=== PATIENT | female | born 1960 | race Caucasian/White ===

== ENCOUNTER 2019-07-04 14:05 | Outpatient (CLI) | payer OTHER, SELFPAY ==
--- NOTE | ~2019-07-04 | XR_ITS ---
EXAMINATION: XR chest 2V EXAM DATE: 07/04/2019 15:25 INDICATION: Cough for one month. Shortness of breath. TECHNIQUE: Frontal and lateral projections of the chest obtained and reviewed. Comparison is made to prior examination from 05/23/2018. FINDINGS: The lungs are clear. There are no pleural effusions. The cardiomediastinal silhouette is within normal limits. There is no pneumothorax suspected. The bones and soft tissues are unremarkab le. IMPRESSION: Unremarkable chest x-ray exam. Reviewed, dictated and finalized at location A. ICULUM DEVELOPMENT COORDINATOR
== END 2019-07-04 14:06 | disposition home or self-care (01) ==
PROVIDERS: PCP Internal Medicine; Visit Provider Internal Medicine
DX: R05 Cough (principal)
CPT/HCPCS: 71046

== ENCOUNTER 2019-07-14 09:51 | Outpatient (CLI) | payer OTHER, SELFPAY ==
--- NOTE | ~2019-07-14 | CT_ITS ---
EXAMINATION: CT lung screening DATE: 07/14/2019 10:45 INDICATION: Personal history of tobacco dependence TECHNIQUE: Computed tomography (CT) of the chest was performed without intravenous contrast. The dose -length product was 288.31 mGy-cm. Automated exposure control and iterative reconstruction technique were employed. COMPARISON: Chest x-ray dated 07/04/2019 FINDINGS: There is lingular and left lower lobe atelectasis. No endobronchial lesions. There are grou ndglass opacities in the right upper lobe, likely secondary to small airway disease. There is a 5 mm right upper lobe nodule, image 35. There are calcified granulomas in the left lung. There is atherosc lerosis of the aorta and coronary arteries. Heart size is normal. No significant pleural or pericardi al effusion. The upper abdomen is unremarkable. There is patchy sclerosis of T3-T7 as well as T10 and T11. There is complete loss of disc space at T4-5, T5-6 and to a lesser degree T6-7. There is loss o f vertebral body height at T3, T4, T5, T6 and T7 with anterior wedge appearance. No acute osseous abn ormality. IMPRESSION: 1. Lung-RADS category 2: Benign appearance or behavior. Continue annual screening with noncontrast lo w-dose chest CT in 12 months. 2: Patchy multilevel sclerosis of the thoracic spine with multiple wedge compression deformities of t he mid thoracic spine. Cannot exclude metastatic disease. Correlate for history of malignancy. Differ ential diagnosis includes sequela of trauma and infection. Consider correlation with bone scan or MRI . Reviewed, dictated and finalized at location A. LANCE WEB DESIGNER IMPRESSION: 1. Lung-RADS category 2: Benign appearance or behavior. Continue annual screeni ng with noncontrast low-dose chest CT in 12 months. 2: Patchy multilevel sclerosis of the thoracic spine with multiple wedge compre ssion deformities of the mid thoracic spine. Cannot exclude metastatic disease. Correlate for history of malignancy. Differential diagnosis includes sequela o f trauma and infection. Consider correlation with bone scan or MRI.
== END 2019-07-14 09:52 | disposition home or self-care (01) ==
LOC: CHSIMG 09:52
PROVIDERS: PCP Internal Medicine; Visit Provider Internal Medicine
DX: Z12.2 Encounter for screening for malignant neoplasm of respiratory organs (principal); Z87.891 Personal history of nicotine dependence
CPT/HCPCS: G0297

== ENCOUNTER 2019-07-30 15:29 | Outpatient (CLI) | payer OTHER, SELFPAY ==
--- NOTE | ~2019-07-30 | MR_ITS ---
EXAMINATION: MR thoracic spine wo/w con DATE: 07/30/2019 17:21 INDICATION: Malignant neoplasm of vertebral column. TECHNIQUE: Magnetic resonance imaging (MRI) of the thoracic spine was performed without and with 20 m L MultiHance intravenous contrast. Sequences included sagittal and axial T2-weighted FSE, sagittal T2 -weighted FS FSE, and sagittal and axial T1-weighted FSE. Postcontrast sequences included sagittal an d axial T1-weighted FS FSE. COMPARISON: Thoracic spine MRI 05/17/2016, 12/14/2012, chest CT 07/14/2019 FINDINGS: There is 13 degrees dextroscoliosis of thoracic spine. There is chronic anterior wedging of T4-T7 and T9 vertebral bodies. There is chronic patchy increased T2-weighted signal intensity and m any of the vertebral bodies, likely degenerative. There are Schmorl's nodes from T2-T3 through T10-T1 1. There is moderately decreased disc height at T3-T4, severely decreased disc height from T4-T5 thro ugh T6-T7, and mildly decreased disc height from T7-T8 through T10-T11. There is interbody fusion fro m T4 to T6. The discs do not extend beyond the endplate margins. There is multilevel mild facet joint osteoarthritis. There is mild neural foraminal stenosis on the right at T1-T2, T2-T3, T5-T6, T6-T7, T7-T8, and T8-T9. There is mild neural foraminal stenosis on the left at T1-T2, T2-T3, and T5-T6. The re is epidural lipomatosis in mid thoracic spine with mild central canal stenosis from T4 to T8. The spinal cord signal intensity is normal. IMPRESSION: 1. Severe thoracic spondylosis, stable from 12/14/2012. Reviewed, dictated and finalized at location A. OR ENGINEERING TECHNICIAN
[2019-07-30 15:52] LABS: Estimated Glomerular Filt Rate > 60
== END 2019-07-30 15:30 | disposition home or self-care (01) ==
LOC: CHSIMG 15:30
PROVIDERS: PCP Internal Medicine; Visit Provider Internal Medicine
DX: C41.2 Malignant neoplasm of vertebral column (principal)
CPT/HCPCS: 72157; A9577

== ENCOUNTER 2019-08-08 08:12 | Outpatient (CLI) | payer OTHER, SELFPAY ==
[2019-08-08 08:21] LABS: Basophils Absolute Auto 0.08 K/mm3 (0.00-0.10); Basophils Percent Auto 0.8 % (0.0-1.0); Eosinophils Absolute Auto 0.31 K/mm3 (0.02-0.50); Eosinophils Percent Auto 3.1 % (1.0-6.0); Hematocrit 41.7 % (35.0-49.0); Hemoglobin 14.6 g/dL (12.0-15.0); Immature Granulocyte Absolute 0.04 K/mm3 (0.00-0.00); Immature Granulocyte Percent A 0.4 % (0.0-0.0); Lymphocytes Absolute Auto 2.71 K/mm3 (1.10-4.50); Lymphocytes Percent Auto 27.3 % (18.0-42.0); Mean Corpuscular Hemoglobin 31.5 pg (27.0-31.0); Mean Corpuscular Volume 90.1 fL (78.0-102.0); Mean Platelet Volume 9.2 fl (9.2-11.8); Monocytes Absolute Auto 0.68 K/mm3 (0.10-0.90); Monocytes Percent Auto 6.9 % (2.0-11.0); Neutrophils Absolute Auto 6.1 K/mm3 (1.7-7.2); Neutrophils Percent Auto 61.5 % (50.0-70.0); Platelet Count Result 327 K/mm3 (150-420); Red Blood Count 4.63 M/mm3 (4.20-5.40); Red Cell Distribution Width 14.6 % (11.6-14.4); White Blood Count 9.9 K/mm3 (4.8-10.8)
[2019-08-08 08:30] LABS: Add Urine Microscopic? NO; Appearance Urine Clear (Clear); Bilirubin Urine Negative (Negative); Blood Urine Negative (Negative); Color Urine Yellow (Yellow); Glucose Urine UA Negative (Negative); Ketones Urine Negative (Negative); Leukocyte Esterase Ur Negative LEU/UL (Negative); Nitrate Urine Negative (Negative); Protein Urine Negative (Negative); Specific Grav Ur 1.015 (1.010-1.020); Urobilinogen Urine 0.2 mg/dL (0.2-1.0); pH Urine 6.5 (5.0-8.0)
[2019-08-08 08:37] LABS: Creatinine Urine 106.19 mg/dL (40-278)
[2019-08-08 08:38] LABS: MALB Creatinine Ratio 10.6 mg/g (0-30); Microalbumin Urine Random 11.3 mg/L
[2019-08-08 08:40] LABS: Hemoglobin A1C 6.3 % (<5.7)
[2019-08-08 09:42] LABS: Alanine Aminotransferase 61 U/L (14-59); Albumin Level 3.7 g/dL (3.4-5.0); Alkaline Phosphatase 130 U/L (46-116); Anion Gap 15.3 mmol/L (7-16); Aspartate Amino Transferase 40 U/L (15-37); Bilirubin,Total 0.3 mg/dL (0.00-1.00); Blood Urea Nitrogen 8 mg/dL (7-18); Calcium 8.9 mg/dL (8.5-10.1); Carbon Dioxide 28 mmol/L (21-32); Chloride 104 mmol/L (98-108); Cholesterol 190 mg/dL (0-200); Creatine Kinase 58 U/L (26-192); Estimated Glomerular Filt Rate > 60; Glucose 112 mg/dL (70-99); HDL Direct 43 mg/dL (40-60); LDL Cholesterol Calculated 123 mg/dL (<130); Osmolality Calculated 295 mOsm/kg (285-295); Potassium 4.3 mmol/L (3.5-5.1); Sodium 143 mmol/L (136-145); Total Protein 7.7 g/dL (6.4-8.2); Triglycerides 122 mg/dL (0-150)
[2019-08-11 21:30] LABS: Vitamin D 25 Hydroxy 33 ng/mL (30-100)
== END 2019-08-08 08:13 | disposition home or self-care (01) ==
LOC: CHSLAB 08:13
PROVIDERS: PCP Internal Medicine; Visit Provider Internal Medicine
DX: E78.5 Hyperlipidemia, unspecified (principal); I10 Essential (primary) hypertension; R73.01 Impaired fasting glucose; M81.0 Age-related osteoporosis without current pathological fracture
CPT/HCPCS: 36415; 80053; 80061; 81003; 82043; 82306; 82550; 83036; 85025

== ENCOUNTER 2019-08-19 07:46 | Outpatient (CLI) | payer OTHER, SELFPAY ==
--- NOTE | ~2019-08-19 | US_ITS ---
EXAMINATION: US right upper quadrant DATE: 08/19/2019 08:14 INDICATION: Elevated liver enzymes TECHNIQUE: Multiple grayscale and Doppler ultrasound images of the abdomen were obtained. COMPARISON: 08/17/2016 FINDINGS: Bowel gas obscures visualization of the pancreas. The visualized portions of the pancreas a re unremarkable. The liver demonstrates increased echogenicity, heterogenous echotexture, and decreas ed through transmission. No surface nodularity. Normal hepatopetal flow in the main portal vein. The gallbladder is normal with no abnormal wall thickening, pericholecystic fluid or stones. The normal c ommon bile duct measures 4 mm. There was no sonographic Downing sign. IMPRESSION: 1. Normal sonographic study of the gallbladder. Reviewed, dictated and finalized at location B.
== END 2019-08-19 07:47 | disposition home or self-care (01) ==
PROVIDERS: PCP Internal Medicine; Visit Provider Internal Medicine
DX: R79.89 Other specified abnormal findings of blood chemistry (principal)
CPT/HCPCS: 76705

== ENCOUNTER 2019-11-03 11:35 | Outpatient (CLI) | payer OTHER, SELFPAY ==
[2019-11-03 12:49] LABS: Alanine Aminotransferase 46 U/L (14-59); Albumin Level 3.5 g/dL (3.4-5.0); Alkaline Phosphatase 145 U/L (46-116); Aspartate Amino Transferase 33 U/L (15-37); Bilirubin,Total 0.3 mg/dL (0.00-1.00); Blood Urea Nitrogen 6 mg/dL (7-18); Calcium 9.6 mg/dL (8.5-10.1); Carbon Dioxide 27 mmol/L (21-32); Chloride 102 mmol/L (98-108); Estimated Glomerular Filt Rate > 60; Glucose 100 mg/dL (70-99); Osmolality Calculated 285 mOsm/kg (285-295); Sodium 139 mmol/L (136-145); Total Protein 7.7 g/dL (6.4-8.2)
== END 2019-11-03 11:36 | disposition home or self-care (01) ==
LOC: CHSLAB 11:37
PROVIDERS: PCP Internal Medicine; Visit Provider Internal Medicine
DX: R94.5 Abnormal results of liver function studies (principal)
CPT/HCPCS: 36415; 80053

== ENCOUNTER 2019-11-24 10:03 | Outpatient (CLI) | payer OTHER, SELFPAY ==
--- NOTE | ~2019-11-24 | MMUS_ITS ---
EXAMINATION: MM screen RT diag LT w keshav, US breast LT limited HISTORY: Follow-up left breast mass. TECHNIQUE: Additional 3-D tomosynthesis images of the left breast were performed and synthetic 2-D im ages were generated. Screening right mammogram. CAD analysis was submitted and interpreted. High reso lution left breast ultrasound was performed. COMPARISON: Comparison to multiple prior studies sequentially, with oldest reviewed study dated 02/24. FINDINGS: MAMMOGRAPHIC FINDINGS: Breast composed of scattered areas of fibroglandular density. Both breasts are stable without new mas s, calcifications or architectural distortion. Stable appearing benign left breast mass laterally, be st seen on CC view. ULTRASOUND: Limited left breast ultrasound: At 2:00, 1 cm from the nipple, there is a oval hypoechoic 4 mm mass which is stable. No significant p osterior features. Parallel orientation. No internal vascularity. IMPRESSION: 1. Stable benign-appearing left breast mass. No evidence for malignancy in either breast. 2. Routine yearly screening mammogram and regular clinical breast examination are recommended. BI-RADS Category 2: Benign finding(s). Reviewed, dictated and finalized at location A. IMPRESSION: 1. Stable benign-appearing left breast mass. No evidence for malignancy in eith er breast. 2. Routine yearly screening mammogram and regular clinical breast examination a re recommended. BI-RADS Category 2: Benign finding(s).
== END 2019-11-24 10:04 | disposition home or self-care (01) ==
PROVIDERS: PCP Internal Medicine; Visit Provider Internal Medicine
DX: R92.8 Other abnormal and inconclusive findings on diagnostic imaging of breast (principal)
CPT/HCPCS: 76642; 77063; 77065; 77067

== ENCOUNTER 2020-02-04 07:11 | Outpatient (CLI) | payer OTHER, SELFPAY ==
[2020-02-04 07:22] LABS: Basophils Absolute Auto 0.08 K/mm3 (0.00-0.10); Basophils Percent Auto 0.8 % (0.0-1.0); Eosinophils Absolute Auto 0.28 K/mm3 (0.02-0.50); Hematocrit 42.5 % (35.0-49.0); Hemoglobin 14.4 g/dL (12.0-15.0); Immature Granulocyte Absolute 0.03 K/mm3 (0.00-0.00); Immature Granulocyte Percent A 0.3 % (0.0-0.0); Lymphocytes Absolute Auto 2.81 K/mm3 (1.10-4.50); Lymphocytes Percent Auto 29.7 % (18.0-42.0); Mean Corpuscular HGB Conc 33.9 g/dL (32.0-36.0); Mean Corpuscular Hemoglobin 31.2 pg (27.0-31.0); Monocytes Absolute Auto 0.61 K/mm3 (0.10-0.90); Monocytes Percent Auto 6.5 % (2.0-11.0); Neutrophils Absolute Auto 5.6 K/mm3 (1.7-7.2); Neutrophils Percent Auto 59.7 % (50.0-70.0); Platelet Count Result 396 K/mm3 (150-420); Red Blood Count 4.62 M/mm3 (4.20-5.40); Red Cell Distribution Width 14.2 % (11.6-14.4); White Blood Count 9.5 K/mm3 (4.8-10.8)
[2020-02-04 07:23] LABS: Add Urine Microscopic? NO; Appearance Urine Clear (Clear); Bilirubin Urine Negative (Negative); Blood Urine Negative (Negative); Color Urine Yellow (Yellow); Glucose Urine UA Negative (Negative); Ketones Urine Negative (Negative); Leukocyte Esterase Ur Negative (Negative); Nitrate Urine Negative (Negative); Protein Urine Negative (Negative); Urobilinogen Urine 0.2 mg/dL (0.2-1.0); pH Urine 5.5 (5.0-8.0)
[2020-02-04 07:56] LABS: Alanine Aminotransferase 46 U/L (14-59); Albumin Level 3.4 g/dL (3.4-5.0); Alkaline Phosphatase 153 U/L (46-116); Anion Gap 6 mmol/L (8-16); Aspartate Amino Transferase 26 U/L (15-37); Bilirubin,Total 0.2 mg/dL (0.00-1.00); Blood Urea Nitrogen 4 mg/dL (7-18); Calcium 9.3 mg/dL (8.5-10.1); Carbon Dioxide 29 mmol/L (21-32); Chloride 105 mmol/L (98-108); Cholesterol 189 mg/dL (0-200); Estimated Glomerular Filt Rate > 60; Glucose 126 mg/dL (70-99); HDL Direct 32 mg/dL (40-60); LDL Cholesterol Calculated 120 mg/dL (<130); Osmolality Calculated 288 mOsm/kg (285-295); Potassium 4.5 mmol/L (3.5-5.1); Sodium 140 mmol/L (136-145); Total Protein 7.8 g/dL (6.4-8.2); Triglycerides 183 mg/dL (0-150)
[2020-02-07 11:36] LABS: Vitamin D 25 Hydroxy 32 ng/mL (30-100)
== END 2020-02-04 07:12 | disposition home or self-care (01) ==
LOC: CHSLAB 07:12
PROVIDERS: PCP Internal Medicine; Visit Provider Internal Medicine
DX: E78.5 Hyperlipidemia, unspecified (principal); I10 Essential (primary) hypertension; R73.01 Impaired fasting glucose; M81.0 Age-related osteoporosis without current pathological fracture
CPT/HCPCS: 36415; 80053; 80061; 81003; 82306; 85025

== ENCOUNTER 2020-05-14 07:22 | Outpatient (CLI) | payer OTHER, SELFPAY ==
[2020-05-14 09:45] LABS: Anion Gap 6 mmol/L (8-16); Blood Urea Nitrogen 5 mg/dL (7-18); Calcium 9.2 mg/dL (8.5-10.1); Carbon Dioxide 29 mmol/L (21-32); Chloride 102 mmol/L (98-108); Estimated Glomerular Filt Rate > 60; Glucose 109 mg/dL (70-99); Osmolality Calculated 282 mOsm/kg (285-295); Potassium 3.9 mmol/L (3.5-5.1); Sodium 137 mmol/L (136-145)
== END 2020-05-14 07:23 | disposition home or self-care (01) ==
LOC: CHSLAB 07:24
PROVIDERS: PCP Internal Medicine; Visit Provider Internal Medicine
DX: E11.9 Type 2 diabetes mellitus without complications (principal)
CPT/HCPCS: 36415; 80048; 83036

== ENCOUNTER 2020-10-12 08:58 | Outpatient (CLI) | payer OTHER, SELFPAY ==
[2020-10-12 09:11] LABS: Add Urine Microscopic? YES; Appearance Urine Clear (Clear); Basophils Absolute Auto 0.08 K/mm3 (0.00-0.10); Basophils Percent Auto 0.8 % (0.0-1.0); Bilirubin Urine Negative (Negative); Blood Urine Negative (Negative); Color Urine Yellow (Yellow); Eosinophils Percent Auto 3.1 % (1.0-6.0); Glucose Urine UA Negative (Negative); Hematocrit 41.7 % (35.0-49.0); Hemoglobin 14.4 g/dL (12.0-15.0); Immature Granulocyte Absolute 0.03 K/mm3 (0.00-0.00); Immature Granulocyte Percent A 0.3 % (0.0-0.0); Ketones Urine Negative (Negative); Leukocyte Esterase Ur 1+ LEU/UL (Negative); Lymphocytes Absolute Auto 2.63 K/mm3 (1.10-4.50); Lymphocytes Percent Auto 27.4 % (18.0-42.0); Mean Corpuscular HGB Conc 34.5 g/dL (32.0-36.0); Mean Corpuscular Hemoglobin 31.2 pg (27.0-31.0); Mean Corpuscular Volume 90.5 fL (78.0-102.0); Mean Platelet Volume 9.1 fl (9.2-11.8); Monocytes Absolute Auto 0.61 K/mm3 (0.10-0.90); Monocytes Percent Auto 6.3 % (2.0-11.0); Neutrophils Percent Auto 62.1 % (50.0-70.0); Nitrate Urine Negative (Negative); Platelet Count Result 339 K/mm3 (150-420); Protein Urine Negative (Negative); Red Blood Count 4.61 M/mm3 (4.20-5.40); Specific Grav Ur 1.015 (1.010-1.020); White Blood Count 9.6 K/mm3 (4.8-10.8); pH Urine 7.5 (5.0-8.0)
[2020-10-12 09:19] LABS: RBC Urine 0-2 /hpf (0-2)
[2020-10-12 09:20] LABS: Bacteria Urine 1+ /hpf; Hemoglobin A1C 6.3 % (<5.7); Squamous Epithelial Cell Urine Few /hpf (Few)
[2020-10-12 09:28] LABS: Creatinine Urine 82.17 mg/dL (40-278); MALB Creatinine Ratio 15.8 mg/g (0-30); Microalbumin Urine Random < 13.0 mg/L
[2020-10-12 10:00] LABS: Alanine Aminotransferase 41 U/L (14-59); Albumin Level 3.4 g/dL (3.4-5.0); Alkaline Phosphatase 141 U/L (46-116); Anion Gap 8 mmol/L (8-16); Aspartate Amino Transferase 24 U/L (15-37); Bilirubin,Total 0.3 mg/dL (0.00-1.00); Blood Urea Nitrogen 12 mg/dL (7-18); Calcium 8.8 mg/dL (8.5-10.1); Carbon Dioxide 30 mmol/L (21-32); Chloride 103 mmol/L (98-108); Cholesterol 202 mg/dL (0-200); Creatine Kinase 67 U/L (26-192); Estimated Glomerular Filt Rate > 60; Glucose 109 mg/dL (70-99); HDL Direct 35 mg/dL (40-60); LDL Cholesterol Calculated 137 mg/dL (<130); Osmolality Calculated 292 mOsm/kg (285-295); Potassium 4.4 mmol/L (3.5-5.1); Sodium 141 mmol/L (136-145); Total Protein 7.8 g/dL (6.4-8.2); Triglycerides 150 mg/dL (0-150)
[2020-10-14 21:01] LABS: Vitamin D 25 Hydroxy 34 ng/mL (30-100)
== END 2020-10-12 08:59 | disposition home or self-care (01) ==
LOC: CHSLAB 09:01
PROVIDERS: PCP Internal Medicine; Visit Provider Internal Medicine
DX: E78.5 Hyperlipidemia, unspecified (principal); I10 Essential (primary) hypertension; R73.01 Impaired fasting glucose; M81.0 Age-related osteoporosis without current pathological fracture
CPT/HCPCS: 36415; 80053; 80061; 81001; 82043; 82306; 82550; 83036; 85025; 87086; 87088

== ENCOUNTER 2020-10-28 09:55 | Outpatient (CLI) | payer OTHER, SELFPAY ==
--- NOTE | ~2020-10-28 | CT_ITS ---
EXAMINATION: CT lung screening DATE: 10/28/2020 10:09 INDICATION: Personal history of tobacco dependence hx tobacco dependence, still smoker TECHNIQUE: Computed tomography (CT) of the chest was performed without intravenous contrast. Addition al 3D reconstructions utilizing coronal maximum intensity projection (MIP) were performed. Automated exposure control and iterative reconstruction technique were employed. The dose-length product was 36 3.55 mGy-cm. COMPARISON: 07/14/2019 FINDINGS: Chronic calcified nodule in the left lower lobe along with calcified left hilar lymph nodes consisten t with old granulomatous disease. No other suspicious pulmonary nodules, pneumonia, pulmonary edema o r other pulmonary infiltrates. No pleural effusion. Heart size is normal. Atherosclerotic coronary ar yenifer calcific lesions. No pericardial effusion. Thoracic aorta is normal in caliber. No pathologicall y enlarged thoracic lymphadenopathy. Severe thoracic spondylosis with anterior wedging and fusion acr oss the T4-T5 and T5-T6 disc spaces. Chronic sclerosis in several of the thoracic vertebral bodies wh ich can be seen dating back to CT dated 12/13/2012. IMPRESSION: 1. Lung-RADS category 2: Benign appearance or behavior. Continue annual screening with noncontrast lo w-dose chest CT in 12 months. Reviewed, dictated and finalized at location A. IMPRESSION: 1. Lung-RADS category 2: Benign appearance or behavior. Continue annual screeni ng with noncontrast low-dose chest CT in 12 months.
== END 2020-10-28 09:56 | disposition home or self-care (01) ==
LOC: CHSIMG 09:57
PROVIDERS: PCP Internal Medicine; Visit Provider Internal Medicine
DX: Z12.2 Encounter for screening for malignant neoplasm of respiratory organs (principal); Z87.891 Personal history of nicotine dependence
CPT/HCPCS: 71271

== ENCOUNTER 2020-10-29 10:11 | Outpatient (CLI) | payer OTHER, SELFPAY ==
--- NOTE | 2020-10-29 10:18 | ECHO_ITS ---
Patient Info Name: Farhana Mcallister Age: 60 years : 1960 Gender: Female Ht: 66 in Wt: 220 lbs BSA: 2.20 m2 HR: 91 bpm BP: 149 / 81 mmHg Technical Quality: Fair Exam Date: 10/29/2020 10:10 AM Exam Location: [facility] Patient Status: Outpatient Admit Date: 10/29/2020 Staff Ordering Physician: Joseluis Rodriguez MD Apparatus Operator: Angélica Dougherty RDCS Attending Provider: Joseluis Rodriguez MD Referring Physician: Michael BOWLING; Exam Type: CA echo dop color flow w con Study Info Indications R01.1 - Cardiac murmur, unspecified R06.00 - Dyspnea, unspecified Complete two-dimensional, color flow and Doppler transthoracic echocardiogram is performed with contrast to opacify the left ventricle and to improve the deliniation of the left ventricle endocardial borders. Strain analysis performed. Contrast/Agitated Saline Contrast/Ag. Saline: Definity Amount: 4.00 ml New IV Access: Right Site Condition: No extravasation, Site dressing applied and IV removed History/Risk Factors Hypertension: Yes Dyslipidemia: Yes Peripheral Arterial Disease (PAD): No Myocardial Infarction (LA): No Obesity: Yes Renal Disease: No Date of Last Tobacco Use: 10/29/2020 Diabetes Mellitus: No Tobacco Use: Current - Every Day If Any Current, Tobacco Type: Cigarettes If Current - Every Day \T\ Cigarettes, Amount: Heavy Tobacco Use (>=10/day) Cerebrovascular Disease: No Family History: Diabetes Mellitus, Coronary Artery Disease Deep Vein Thrombosis (DVT): None Dialysis: None Frailty Scale (CSHA): 2: Well Summary 1. Left ventricular chamber dimension is normal. 2. Left ventricular systolic function is normal, estimated at 55-60%. 3. There is mildly increased left ventricular wall thickness. 4. The left ventricular diastolic function is grade I diastolic dysfunction. 5. E/e' 10 is mildly elevated. 6. Global longitudinal strain is abnormal at -10.5%. 7. No pulmonary hypertension, estimated pulmonary arterial systolic pressure is 37 mmHg. Recommendations * Smoking cessation counseling is recommended for this patient. Left Ventricle E/e' 10 is mildly elevated. Global longitudinal strain is abnormal at -10.5%. Left ventricular chamber dimension is normal. Left ventricular systolic function is normal, estimated at 55-60%. There is mildly increased left ventricular wall thickness. The left ventricular diastolic function is grade I diastolic dysfunction. Right Ventricle Right ventricular systolic function is normal and with normal TAPSE 2.0 cm. Right ventricular chamber dimension is normal. Left Atria Left atrial chamber dimension is normal. Right Atria Right atrial chamber dimension is normal. Aortic Valve The aortic valve is trileaflet. There is no aortic valve stenosis. There is no aortic valve regurgitation. Pulmonic Valve There is no pulmonic regurgitation. Mitral Valve There is no mitral valve stenosis. There is no mitral valve regurgitation. Tricuspid Valve There is no tricuspid valve regurgitation. No pulmonary hypertension, estimated pulmonary arterial systolic pressure is 37 mmHg. Pericardium/Pleural There is no pericardial effusion. Inferior Vena Cava Normal inferior vena cava with >50% collapse upon inspiration consistent with normal right atrial pressure, 5 mmHg. Aorta The aortic root size at the sinus of Valsalva is normal
== END 2020-10-29 10:12 | disposition home or self-care (01) ==
LOC: CHSIMG 10:12
PROVIDERS: PCP Internal Medicine; Visit Provider Internal Medicine
DX: R01.1 Cardiac murmur, unspecified (principal); R06.00 Dyspnea, unspecified
CPT/HCPCS: C8929

== ENCOUNTER 2020-12-03 09:39 | Outpatient (CLI) | payer OTHER, SELFPAY ==
--- NOTE | ~2020-12-03 | MM_ITS ---
EXAMINATION: MM screening luis a BI w keshav HISTORY: Screening mammogram TECHNIQUE: Craniocaudal and mediolateral oblique 3-D tomosynthesis images were obtained and synthetic 2-D images were generated. CAD analysis was submitted and interpreted. COMPARISON: 11/24/2019 limited left breast ultrasound 02/27/2019, 08/28/2018 diagnostic left mammogram and left breast ultrasound 08/20/2018, 05/08/2017 bilateral digital screening mammogram examinations BREAST PARENCHYMAL COMPOSITION: The breasts are almost entirely fatty. FINDINGS: There is no evidence of suspicious mass, calcification, or architectural distortion to sugg est malignancy in either breast. There has been no suspicious interval change. IMPRESSION: 1. No mammographic evidence of malignancy. 2. Recommend routine screening mammography in one year. BI-RADS Category 1: Negative Reviewed, dictated and finalized at location A.
== END 2020-12-03 09:40 | disposition home or self-care (01) ==
LOC: CHSIMG 09:40
PROVIDERS: PCP Internal Medicine; Visit Provider Internal Medicine
DX: Z12.31 Encounter for screening mammogram for malignant neoplasm of breast (principal)
CPT/HCPCS: 77063; 77067

== ENCOUNTER 2020-12-13 15:05 | Outpatient (CLI) | payer OTHER, SELFPAY ==
--- NOTE | 2020-12-13 15:09 | ECG_ITS ---
Measurements Intervals Sinclair Rate: 85 P: 64 MN: 165 QRS: 40 QRSD: 88 T: 47 QT: 348 QTc: 414 Interpretive Statements SINUS RHYTHM BASELINE ARTIFACT- I, II, III, AVL, AVF NORMAL ECG Electronically Signed On 12-13-2020 15:19:03 CDT by Eriberto Cuenca D.O.
== END 2020-12-13 15:06 | disposition home or self-care (01) ==
LOC: CHSCARD 15:09
PROVIDERS: PCP Internal Medicine; Visit Provider Internal Medicine Cardiovascular Disease
DX: R06.00 Dyspnea, unspecified (principal)
CPT/HCPCS: 93005

== ENCOUNTER 2020-12-23 00:07 | Day surgery (SDC) | payer OTHER, SELFPAY ==
[2020-12-08 13:28] VITALS: BMI 35.2
[2020-12-23 06:28] VITALS: BP 142/77; PULSE 89; RESP 18; TEMP 36.3; O2SAT 97; BMI 37.0
[2020-12-23] MEDS: LACTATED RINGERS 1,000 ML 30 ML IV CONT (06:37)
--- NOTE | 2020-12-23 07:04 | WPDANESEPPF ---
Anes - Initial Pre Proc Eval Procedure: Operation Date: 12/23/20 07:30 Proposed Procedures p Screening Colonoscopy - Ag Foss DO Date/Time: 12/23/20 07:04 Surgeon: Ag Foss DO Pre Op Diagnosis: neoplasm screening Patient Data Age: 60 Gender: F Height: 1.65 m Weight: 101 kg Last Vital Signs Temp 36.3 C L 12/23/20 06:28 Pulse 89 12/23/20 06:28 Resp 18 12/23/20 06:28 BP 142/77 H 12/23/20 06:28 Pulse Ox 97 12/23/20 06:28 Allergies Allergy/AdvReac Type Severity Reaction Status Date / Time No Known Allergies Allergy Verified 12/23/20 06:28 Home Medications Medication Instructions Recorded Confirmed Type amitriptyline 25 mg PO DAILY 12/08/20 12/13/20 History amlodipine 10 mg PO DAILY 12/08/20 12/13/20 History atorvastatin 40 mg PO DAILY 12/08/20 12/13/20 History baclofen 10 mg PO DAILY 12/08/20 12/13/20 History chlordiazepoxide HCl 25 mg PO DAILY 12/08/20 12/13/20 History fluticasone propionate 1 spray INTRANASAL PRN PRN 12/08/20 12/13/20 History [id number]-[id number] 1 inh INHALATION DAILY 12/08/20 12/13/20 History [Trelegy Ellipta] gabapentin 600 mg PO DAILY 12/08/20 12/13/20 History meloxicam 15 mg PO DAILY 12/08/20 12/13/20 History omeprazole 20 mg PO DAILY 12/08/20 12/13/20 History venlafaxine 150 mg PO DAILY 12/08/20 12/13/20 History Patient hx anesthesia problems: none Family hx anesthesia problems: none [facility] Past Medical History Medical History (Updated 12/23/20 @ 07:04 by Pedro Hammer MD) Anxiety COPD (chronic obstructive pulmonary disease) HTN (hypertension) Obesity Social History Social History Smoking packs per day: 1 Smoking cigarettes per day: 20.0 Years smoked: 30 Smoking pack-years: 30.00 Smoking status: Current every day smoker Tobacco type: cigarettes Alcohol intake: former Substance use: never Substance use type: does not use Living arrangements: with family Gender identity (if verbalized by the patient): Female Spiritual care concerns: No Anes - Eval Final PreProcedure Day of Procedure 12/23/20 07:04 Patient weight: obese Heart: regular rate and rhythm Lungs: clear to auscultation Airway: Mallampati scale class II Neurological: alert and oriented Last oral intake: >/= 8 hours ASA classification: III Emergent: no Anesthetic plan: proceed Anesthesia type and monitoring: general GIVS and standard monitoring Informed Consent: The patient's anesthetic plan and its attendant risks and benefits were discussed with the patient/family/POA. Questions were solicited and answers provided to the satisfaction of the patient/family/POA.
--- NOTE | 2020-12-23 07:35 | PM.IMHP ---
H&P: HPI History of Present Illness Date/Time: 12/23/20 07:35 Chief Complaint: hx of polyps Narrative: This is a 60-year-old woman presents for colonoscopy. Her last colonoscopy showed polyps. She. She had family history of colon cancer. Review of Systems Review of Systems: All systems reviewed & are unremarkable except as noted in HPI and below Constitutional: Constitutional: Denies chills, Denies fever(s), Denies headache(s) and Denies weight loss Eyes: Eyes: Denies change in vision ENT: Denies dizziness, Denies headache(s), Denies neck mass and Denies throat swelling Cardiovascular: Cardiovascular: Denies chest pain, Denies lightheadedness and Denies dyspnea Respiratory: Respiratory: Denies cough, Denies dyspnea and Denies wheezing Gastrointestinal: Gastrointestinal: Denies abdominal pain, Denies change in bowel habits, Denies nausea and Denies vomiting Genitourinary: Genitourinary: Denies hematuria and Denies dysuria Musculoskeletal: Musculoskeletal: Reports as per HPI Integumentary/Breasts: Skin/Breast: Reports as per HPI Neurologic: Denies dizziness and Denies headache(s) Allergic/Immunologic: Allergic/Immunologic: Denies throat swelling and Denies wheezing PMFSH Past Medical History Medical History (Updated 12/23/20 @ 07:35 by Ag Foss DO) Anxiety COPD (chronic obstructive pulmonary disease) HTN (hypertension) Obesity Social History Social History Smoking packs per day: 1 Smoking cigarettes per day: 20.0 Years smoked: 30 Smoking pack-years: 30.00 Smoking status: Current every day smoker Tobacco type: cigarettes Alcohol intake: former Substance use: never Substance use type: does not use Living arrangements: with family Gender identity (if verbalized by the patient): Female Spiritual care concerns: No Meds Home Medications and Allergies Home Medications Medication Instructions Recorded Confirmed Type amitriptyline 25 mg PO DAILY 12/08/20 12/13/20 History amlodipine 10 mg PO DAILY 12/08/20 12/13/20 History atorvastatin 40 mg PO DAILY 12/08/20 12/13/20 History baclofen 10 mg PO DAILY 12/08/20 12/13/20 History chlordiazepoxide HCl 25 mg PO DAILY 12/08/20 12/13/20 History fluticasone propionate 1 spray INTRANASAL PRN PRN 12/08/20 12/13/20 History jcewodkqcle-nupftsvgj-iszskkti 1 inh INHALATION DAILY 12/08/20 12/13/20 History [Trelegy Ellipta] gabapentin 600 mg PO DAILY 12/08/20 12/13/20 History meloxicam 15 mg PO DAILY 12/08/20 12/13/20 History omeprazole 20 mg PO DAILY 12/08/20 12/13/20 History venlafaxine 150 mg PO DAILY 12/08/20 12/13/20 History Allergies Allergy/AdvReac Type Severity Reaction Status Date / Time No Known Allergies Allergy Verified 12/23/20 06:28 Vital Signs Vital Signs - 24 hr 12/23/20 06:28 Temperature 36.3 C L Pulse Rate 89 Respiratory Rate 18 Blood Pressure 142/77 H Pulse Oximetry 97 Exam Const: General: no acute distress and alert Orientation/consciousness: patient oriented x3 HENMT: Head: normocephalic and atraumatic Ears: hearing grossly normal bilaterally General nose exam: Normal nares present Mouth: Yes Normal oral and palatal mucosa present Eyes: Periorbital: periorbital findings normal Sclera: sclerae normal EOM: EOMs intact bilaterally Neck: Neck: normal visual inspection, no lymphadenopathy and trachea midline Chest: Chest palpation & inspection: normal inspection of the chest Resp: Effort & Inspection: normal respiratory effort Auscultation: clear to auscultation bilaterally Cardio: Jugular venous distension: no JVD Rate: regular rate Rhythm: regular rhythm Heart sounds: S1 normal heart sound present and S2 normal heart sound present Peripheral pulses: Peripheral pulses 2+ throughout GI: Inspection: normal to inspection GI Palp: Yes Soft to palpation, No Tenderness to palpation present (GI), No Guarding due to palpation present
[2020-12-23 08:18] VITALS: BP 126/85; PULSE 81; RESP 19; O2SAT 98
[2020-12-23 08:28] VITALS: BP 130/81; PULSE 78; RESP 18; O2SAT 99
[2020-12-23 08:38] VITALS: BP 125/76; PULSE 79; RESP 18; O2SAT 97
== END 2020-12-23 08:50 | disposition home or self-care (01) ==
PROVIDERS: PCP Internal Medicine; Visit Provider Surgery
PROC: 0DJD8ZZ Inspection of Lower Intestinal Tract, Via Natural or Artificial Opening Endoscopic (ICD-10-PCS; CPT 45378; principal; 2020-12-23 07:30)
DX: Z12.11 Encounter for screening for malignant neoplasm of colon (principal); K52.9 Noninfective gastroenteritis and colitis, unspecified; K63.5 Polyp of colon; K62.1 Rectal polyp; K57.30 Diverticulosis of large intestine without perforation or abscess without bleeding; K64.8 Other hemorrhoids; I10 Essential (primary) hypertension; J44.9 Chronic obstructive pulmonary disease, unspecified; F41.9 Anxiety disorder, unspecified; F17.210 Nicotine dependence, cigarettes, uncomplicated; E66.9 Obesity, unspecified; Z68.37 Body mass index [BMI] 37.0-37.9, adult
CPT/HCPCS: 45380; 88305; J7120

== ENCOUNTER 2020-12-27 11:00 | Outpatient (CLI) | payer OTHER, SELFPAY ==
--- NOTE | 2020-12-27 11:05 | EST_ITS ---
Patient Info Name: Farhana Mcallister Age: 60 years : 1960 Gender: Female Ht: 66 in Wt: 224 lbs BSA: 2.22 m2 Exam Date: 12/27/2020 12:12 PM Exam Location: [facility] Patient Status: Outpatient Admit Date: 12/27/2020 Staff Ordering Physician: Eriberto Cuenca DO Attending Provider: Eriberto Cuenca DO Exam Type: CA stress milton w NM History/Risk Factors Hypertension: Yes Dyslipidemia: Yes Peripheral Arterial Disease (PAD): No Myocardial Infarction (VA): No Obesity: Yes Renal Disease: No Date of Last Tobacco Use: 10/29/2020 Diabetes Mellitus: No Tobacco Use: Current - Every Day If Any Current, Tobacco Type: Cigarettes If Current - Every Day \T\ Cigarettes, Amount: Heavy Tobacco Use (>=10/day) Cerebrovascular Disease: No Family History: Diabetes Mellitus, Coronary Artery Disease Deep Vein Thrombosis (DVT): None Dialysis: None Frailty Scale (CSHA): 2: Well Summary 1. 1. Negative lexiscan stress test for ischemic ST changes by ECG criteria. 2. 2. Stable hemodynamics throughout the test. 3. 3. Nuclear scan to follow and will be reported separately. Please correlate with it. 4. 4. Patient informed of the above results. Protocol: LEXISCAN Stress ECG Details Stage: REST Duration (min): 1 min : 2 sec HR (bpm): 81 SBP (mmHg): 119 DBP (mmHg): 68 Stage: REST Duration (min): 12 min : 13 sec HR (bpm): 78 SBP (mmHg): 119 DBP (mmHg): 68 Stage: STAGE 1 Duration (min): 0 min : 8 sec HR (bpm): 78 SBP (mmHg): 119 DBP (mmHg): 68 Stage: RECOVERY Duration (min): 0 min : 51 sec HR (bpm): 92 SBP (mmHg): 119 DBP (mmHg): 68 Stage: RECOVERY Duration (min): 1 min : 51 sec HR (bpm): 95 SBP (mmHg): 124 DBP (mmHg): 71 Stage: RECOVERY Duration (min): 2 min : 51 sec HR (bpm): 95 SBP (mmHg): 128 DBP (mmHg): 68 Stage: RECOVERY Duration (min): 3 min : 51 sec HR (bpm): 96 SBP (mmHg): 126 DBP (mmHg): 66 Stage: RECOVERY Duration (min): 4 min : 51 sec HR (bpm): 91 SBP (mmHg): 125 DBP (mmHg): 69 Stage: RECOVERY Duration (min): 5 min : 51 sec HR (bpm): 88 SBP (mmHg): 124 DBP (mmHg): 68 Stage: RECOVERY Duration (min): 6 min : 3 sec HR (bpm): 88 SBP (mmHg): 124 DBP (mmHg): 68 Rest HR: 78 bpm Peak HR: 98 bpm Rest Sys BP: 119 mmHg Peak Sys BP: 128 mmHg Max Pred HR: 160 bpm % Max Pred HR: 61 % Target HR: 136 bpm Max RPP: 12,544 bpm*mmHg Termination Reason: Completed protocol Cardiac Symptoms: Shortness of breath Total Time: 0 min : 8 sec Rest Krishnamurthy BP: 68 mmHg Peak Krishnamurthy BP: 68 mmHg Total Dose: 0.4 mg Resting ECG Sinus rhythm. Stress ECG No ST changes. Arrhythmias None. Report Signatures
--- NOTE | 2020-12-27 15:08 | WPDCARIOSTRE ---
Nuclear Stress Test INDICATIONS Indications: Shortness of breath PROCEDURE Procedure Performed: Myocardial Perf Spect-Multi Procedure: Patient underwent lexiscan stress test and immediately was injected with 35 mCi of cardiolyte. Multiple tomographic images were obtained. These are of good quality. There is evidence of small, mild anterior perfusion defect during stress imaging. A separate resting images were obtained after patient was injected with 10.5 mCi of cardiolyte. Multiple tomographic images were obtained. These are of good quality. There is evidence of small, mild anterior perfusion defect during rest imaging. CONCLUSION Conclusion: 1. Myocardial perfusion imaging demonstrating small size, mild anterior perfusion defect during rest and stress imaging suggestive of breast attenuation artifact. 2. No evidence of reversible ischemia. 3. Left ventriculogram demonstrates normal ejection fraction measured at 78% with hyperdynamic LV systolic function. 4. TID score is normal at 1.04.
== END 2020-12-27 11:01 | disposition home or self-care (01) ==
LOC: CHSIMG 11:01
PROVIDERS: PCP Internal Medicine; Visit Provider Internal Medicine Cardiovascular Disease
DX: R06.00 Dyspnea, unspecified (principal)
CPT/HCPCS: 78452; 93017; A9502; J2785

== ENCOUNTER 2021-05-03 08:34 | Outpatient (CLI) | payer OTHER, SELFPAY ==
[2021-05-03 08:44] LABS: Basophils Absolute Auto 0.08 K/mm3 (0.00-0.10); Basophils Percent Auto 0.8 % (0.0-1.0); Eosinophils Absolute Auto 0.37 K/mm3 (0.02-0.50); Eosinophils Percent Auto 3.8 % (1.0-6.0); Hematocrit 42.3 % (35.0-49.0); Hemoglobin 14.3 g/dL (12.0-15.0); Immature Granulocyte Absolute 0.02 K/mm3 (0.00-0.00); Immature Granulocyte Percent A 0.2 % (0.0-0.0); Lymphocytes Absolute Auto 2.27 K/mm3 (1.10-4.50); Lymphocytes Percent Auto 23.4 % (18.0-42.0); Mean Corpuscular HGB Conc 33.8 g/dL (32.0-36.0); Mean Corpuscular Hemoglobin 30.9 pg (27.0-31.0); Mean Corpuscular Volume 91.4 fL (78.0-102.0); Mean Platelet Volume 9.2 fl (9.2-11.8); Monocytes Absolute Auto 0.65 K/mm3 (0.10-0.90); Monocytes Percent Auto 6.7 % (2.0-11.0); Neutrophils Absolute Auto 6.3 K/mm3 (1.7-7.2); Neutrophils Percent Auto 65.1 % (50.0-70.0); Platelet Count Result 337 K/mm3 (150-420); Red Blood Count 4.63 M/mm3 (4.20-5.40); Red Cell Distribution Width 15.1 % (11.6-14.4); White Blood Count 9.7 K/mm3 (4.8-10.8)
[2021-05-03 08:48] LABS: Add Urine Microscopic? NO; Appearance Urine Clear (Clear); Bilirubin Urine Negative (Negative); Blood Urine Negative (Negative); Color Urine Light Yellow (Yellow); Glucose Urine UA Negative (Negative); Ketones Urine Negative (Negative); Leukocyte Esterase Ur Negative (Negative); Nitrate Urine Negative (Negative); Protein Urine Negative (Negative); Specific Grav Ur 1.015 (1.010-1.020); Urobilinogen Urine 0.2 mg/dL (0.2-1.0)
[2021-05-03 10:09] LABS: Hemoglobin A1C 6.1 % (<5.7)
[2021-05-03 10:13] LABS: Creatinine Urine 64.99 mg/dL (40-278); Microalbumin Urine Random < 13.0 mg/L
[2021-05-03 10:23] LABS: Alanine Aminotransferase 45 U/L (14-59); Albumin Level 3.4 g/dL (3.4-5.0); Alkaline Phosphatase 147 U/L (46-116); Anion Gap 10 mmol/L (8-16); Aspartate Amino Transferase 29 U/L (15-37); Bilirubin,Total 0.4 mg/dL (0.00-1.00); Blood Urea Nitrogen 6 mg/dL (7-18); Calcium 9.1 mg/dL (8.5-10.1); Carbon Dioxide 29 mmol/L (21-32); Chloride 103 mmol/L (98-108); Cholesterol 185 mg/dL (0-200); Creatine Kinase 74 U/L (26-192); Estimated Glomerular Filt Rate > 60; Free T4 Free Thyroxine 0.82 ng/dL (0.76-1.46); Glucose 115 mg/dL (70-99); HDL Direct 41 mg/dL (40-60); LDL Cholesterol Calculated 115 mg/dL (<130); Osmolality Calculated 292 mOsm/kg (285-295); Potassium 4.4 mmol/L (3.5-5.1); Sodium 142 mmol/L (136-145); Thyroid Stimulating Hormone 2.19 uIU/mL (0.36-3.74); Total Protein 7.7 g/dL (6.4-8.2); Triglycerides 143 mg/dL (0-150)
[2021-05-07 13:40] LABS: Vitamin D 25 Hydroxy 31 ng/mL (30-100)
== END 2021-05-03 08:35 | disposition home or self-care (01) ==
LOC: CHSLAB 08:36
PROVIDERS: PCP Internal Medicine; Visit Provider Internal Medicine
DX: E78.2 Mixed hyperlipidemia (principal); I10 Essential (primary) hypertension; R73.01 Impaired fasting glucose; M81.0 Age-related osteoporosis without current pathological fracture; R53.82 Chronic fatigue, unspecified
CPT/HCPCS: 36415; 80053; 80061; 81003; 82043; 82306; 82550; 83036; 84439; 84443; 84481; 85025

== ENCOUNTER 2021-05-05 11:52 | Outpatient (CLI) | payer OTHER, SELFPAY ==
--- NOTE | ~2021-05-05 | DEXA_ITS ---
Bone Density Report Name: OLIVA BARON Age: 61 Sex: Female Ethnicity: White Date of : 1960 Indication: postmenopausal; screening for osteoporosis; Referring Provider: Joseluis Rodriguez Study: Bone densitometry was performed. Exam Date: May 05, 2021 Accession number: [id number] Bone Density: Region BMD T-score Z-score Classification AP Spine(L1-L4) 0.913 -1.2 0.3 Osteopenia Femoral Neck (Left) 0.726 -1.1 0.2 Osteopenia Total Hip (Left) 0.842 -0.8 0.2 Normal Femoral Neck (Right) 0.612 -2.1 -0.8 Osteopenia Total Hip (Right) 0.821 -1.0 0.0 Normal Femoral Neck Mean 0.669 -1.6 -0.3 Osteopenia Total Hip Mean 0.831 -0.9 0.1 Normal World Health Organization criteria for BMD impression classify patients as: Normal (T-score at or above -1.0), Osteopenia (T-score between -1.0 and -2.5), or Osteoporosis (T-score at or below -2.5). 10-year Fracture Risk(1): Major Osteoporotic Fracture 9.1% Hip Fracture 1.2% Reported Risk Factors: [place] (), Neck BMD=0.612, BMI=40.0 (1) FRAX(R) Version 3.08. Fracture probability calculated for an untreated patient. Fracture probability may be lower if the patient has received treatment. Clinical Information Provided by Patient: Patient maximum height was 64 Menopause Age: 54 No regular weight bearing exercise Does not regularly consume dairy products Drinks caffeinated beverages Onset of menses at age 15 Number of children 2 Impression: The patient has low bone mass, based on the Right Femoral Neck T-score. Discussion: BONE DENSITY IS LOW AT ONE OR MORE SKELETAL SITES. This patient's lowest T-score is low at one or more skeletal sites. It meets the World Health Organization's (WHO) criteria for ?low bone mass? (T-score between -1.0 and -2.5). The patient's 10-year risk of fracture as calculated by FRAX is less than the threshold where pharmacological therapy is recommended by the National Osteoporosis Foundation (NOF). However, all treatment decisions require clinical judgment and consideration of individual patient factors, including patient preferences, comorbidities, previous drug use, risk factors not captured in the FRAX model (e.g., frailty, falls, vitamin D deficiency, increased bone turnover, interval significant decline in bone density) and possible under or overestimation of fracture risk by FRAX. The patient should follow a healthful lifestyle (good nutrition with adequate calcium and vitamin D, and appropriate weight-bearing exercise). Follow-Up: Consider repeating this study in 2 to 3 years to reassess this patient's status, or sooner if there is some new clinical indication. Reported by: Dr. Nathan Morrison on 05/05/2021 12:17:00 PM. Reviewed, dic
== END 2021-05-05 11:53 | disposition home or self-care (01) ==
LOC: CHSIMG 11:52
PROVIDERS: PCP Internal Medicine; Visit Provider Internal Medicine
DX: M81.0 Age-related osteoporosis without current pathological fracture (principal)
CPT/HCPCS: 77080

== ENCOUNTER 2021-05-25 18:25 | Outpatient (CLI) | payer OTHER, SELFPAY ==
--- NOTE | ~2021-05-25 | XR_ITS ---
EXAMINATION: XR ankle LT min 3V DATE: 05/25/2021 18:42 INDICATION: Left ankle pain TECHNIQUE: Anteroposterior, lateral, mortise, and additional oblique view of the ankle were obtained. COMPARISON: None. FINDINGS: Bone alignment is normal. There is no acute fracture. Healed fractures of the metatarsals a re noted. The soft tissues are unremarkable. IMPRESSION: 1. No acute osseous abnormality. Reviewed, dictated and finalized at location F. UIT CLERK
[2021-05-25 19:06] LABS: Hemoglobin 14.8 g/dL (12.0-15.0); Mean Corpuscular HGB Conc 33.6 g/dL (32.0-36.0); Mean Corpuscular Hemoglobin 30.8 pg (27.0-31.0); Mean Corpuscular Volume 91.5 fL (78.0-102.0); Mean Platelet Volume 9.6 fl (9.2-11.8); Platelet Count Result 289 K/mm3 (150-420); Red Blood Count 4.81 M/mm3 (4.20-5.40); Red Cell Distribution Width 15.1 % (11.6-14.4); White Blood Count 8.6 K/mm3 (4.8-10.8)
[2021-05-25 19:45] LABS: Alanine Aminotransferase 56 U/L (14-59); Albumin Level 3.7 g/dL (3.4-5.0); Alkaline Phosphatase 133 U/L (46-116); Anion Gap 11 mmol/L (8-16); Aspartate Amino Transferase 31 U/L (15-37); Bilirubin,Total 0.3 mg/dL (0.00-1.00); Blood Urea Nitrogen 7 mg/dL (7-18); CRP 1.2 mg/dL (0.0-0.9); Calcium 9.3 mg/dL (8.5-10.1); Carbon Dioxide 28 mmol/L (21-32); Chloride 103 mmol/L (98-108); Estimated Glomerular Filt Rate > 60; Glucose 99 mg/dL (70-99); Osmolality Calculated 292 mOsm/kg (285-295); Potassium 4.1 mmol/L (3.5-5.1); Sodium 142 mmol/L (136-145); Total Protein 7.9 g/dL (6.4-8.2); Uric Acid 4.9 mg/dL (2.6-6.0)
[2021-05-25 20:05] LABS: Erythrocyte Sedimentation Rate 36 mm/hr (0-20); Rheumatoid Factor Screen Negative (Negative)
== END 2021-05-25 18:26 | disposition home or self-care (01) ==
LOC: CHSLAB 18:26
PROVIDERS: PCP Internal Medicine; Visit Provider Internal Medicine
DX: M25.572 Pain in left ankle and joints of left foot (principal); M25.472 Effusion, left ankle
CPT/HCPCS: 36415; 73610; 80053; 84550; 85027; 85652; 86140; 86430

== ENCOUNTER 2021-05-31 09:46 | Outpatient (CLI) | payer OTHER, SELFPAY ==
--- NOTE | ~2021-05-31 | MR_ITS ---
EXAMINATION: MR ankle LT wo con DATE: 05/31/2021 11:38 INDICATION: Left ankle pain TECHNIQUE: Magnetic resonance imaging (MRI) of the left ankle was performed without intravenous contr ast. Sequences included sagittal, coronal, and axial proton-density weighted fast spin echo without a nd with fat saturation. COMPARISON: None. FINDINGS: Medial ankle ligaments: Deep and superficial deltoid ligaments as well as the spring ligament are normal. Lateral ankle ligaments: The anterior and posterior inferior tibiofibular ligaments are normal. The anterior talofibular, calc aneofibular and posterior talofibular ligaments are normal. Tendons: Achilles tendon is normal. The peroneus longus and brevis tendons are normal. The tibialis anterior a nd extensor hallucis longus and extensor digitorum longus tendons are normal. The tibialis posterior, flexor digitorum longus and flexor hallucis longus tendons are normal. Plantar fascia: The plantar aponeurosis is normal. Bones/other: Bone alignment is normal. Periosteal reaction along the medial metaphysis and metadiaphysis of the di stal tibia centered about a focus of subtle linear sclerosis along the medial cortex with subtle surr ounding marrow edema suspicious for stress fracture/injury, potentially healing given the relatively mild edema. No other lesions suspicious for fracture identified. Cystic change versus erosion at the lateral base of the fourth metatarsal in the both the dorsal and plantar aspect of the anterior proce ss of the calcaneus. There appears to be overlying chondromalacia associated with the anterior calcan eal lesions favoring a degenerative etiology. Normal bone marrow signal with no reactive edema or pat hologic marrow replacing process. Fluid: Physiologic amount of fluid in the joint spaces. No tenosynovitis, bursitis or other abnormal fluid c ollections. IMPRESSION: 1. Periosteal reaction mild edema associated with a linear region of sclerosis along the cortex at th e medial metadiaphysis of the distal tibia suspicious for stress fracture, potentially healing given the relatively mild edema. 2. Degenerative cystic change versus less likely nonspecific erosion at the lateral base of the fourt h metatarsal and at the anterior process of the calcaneus. Reviewed, dictated and finalized at location B. ELET MAKER NOVELTY IMPRESSION: 1. Periosteal reaction mild edema associated with a linear region of sclerosis along the cortex at the medial metadiaphysis of the distal tibia suspicious for stress fracture, potentially healing given the relatively mild edema. 2. Degenerative cystic change versus less likely nonspecific erosion at the lat eral base of the fourth metatarsal and at the anterior process of the calcaneus .
== END 2021-05-31 09:47 | disposition home or self-care (01) ==
LOC: CHSIMG 09:47
PROVIDERS: PCP Internal Medicine; Visit Provider Internal Medicine
DX: M25.572 Pain in left ankle and joints of left foot (principal)
CPT/HCPCS: 73721

== ENCOUNTER 2021-07-25 12:18 | Outpatient (CLI) | payer OTHER, SELFPAY ==
--- NOTE | ~2021-07-25 | XR_ITS ---
XR chest 2V 07/25/2021 12:45 Indication: Respiratory infection. Wheezing. Procedure: 2 view chest Comparison: Comparison to multiple prior studies sequentially, with oldest reviewed study dated 09/2016. Findings: There is chronic pleural thickening bilaterally. Heart size normal. No focal air space dise ase, pulmonary edema, pleural effusion or suspected pneumothorax. Impression: 1: No acute cardiopulmonary disease. Reviewed, dictated and finalized at location A. EWORK SUPERVISOR Impression: 1: No acute cardiopulmonary disease.
[2021-07-25 12:32] LABS: Basophils Absolute Auto 0.07 K/mm3 (0.00-0.10); Basophils Percent Auto 0.6 % (0.0-1.0); Eosinophils Absolute Auto 0.37 K/mm3 (0.02-0.50); Eosinophils Percent Auto 3.3 % (1.0-6.0); Hematocrit 42.9 % (35.0-49.0); Hemoglobin 14.4 g/dL (12.0-15.0); Immature Granulocyte Absolute 0.04 K/mm3 (0.00-0.00); Immature Granulocyte Percent A 0.4 % (0.0-0.0); Lymphocytes Absolute Auto 2.85 K/mm3 (1.10-4.50); Lymphocytes Percent Auto 25.6 % (18.0-42.0); Mean Corpuscular HGB Conc 33.6 g/dL (32.0-36.0); Mean Corpuscular Hemoglobin 30.4 pg (27.0-31.0); Mean Corpuscular Volume 90.7 fL (78.0-102.0); Mean Platelet Volume 9.3 fl (9.2-11.8); Monocytes Percent Auto 7.2 % (2.0-11.0); Neutrophils Percent Auto 62.9 % (50.0-70.0); Platelet Count Result 315 K/mm3 (150-420); Red Blood Count 4.73 M/mm3 (4.20-5.40); Red Cell Distribution Width 15.2 % (11.6-14.4); White Blood Count 11.1 K/mm3 (4.8-10.8)
[2021-07-25 13:16] LABS: Alanine Aminotransferase 63 U/L (14-59); Albumin Level 3.4 g/dL (3.4-5.0); Alkaline Phosphatase 139 U/L (46-116); Anion Gap 11 mmol/L (8-16); Aspartate Amino Transferase 38 U/L (15-37); Bilirubin,Total 0.5 mg/dL (0.00-1.00); Blood Urea Nitrogen 4 mg/dL (7-18); Calcium 9.1 mg/dL (8.5-10.1); Carbon Dioxide 28 mmol/L (21-32); Chloride 103 mmol/L (98-108); Estimated Glomerular Filt Rate > 60; Glucose 89 mg/dL (70-99); Osmolality Calculated 289 mOsm/kg (285-295); Potassium 3.8 mmol/L (3.5-5.1); Sodium 142 mmol/L (136-145); Total Protein 7.7 g/dL (6.4-8.2)
[2021-07-27 17:51] LABS: Hepatitis A Antibody IgM Nonreactive; Hepatitis B Core Antibody Nonreactive (Nonreactive); Hepatitis B Surface Antigen Nonreactive (Nonreactive); Hepatitis C Signal to Cutoff 0.01 ratio (<1.00); Hepatitis C Virus Antibody Nonreactive (Nonreactive)
== END 2021-07-25 12:19 | disposition home or self-care (01) ==
LOC: CHSIMG 12:21
PROVIDERS: PCP Internal Medicine; Visit Provider Nurse Practitioner Family
DX: J06.9 Acute upper respiratory infection, unspecified (principal); R06.2 Wheezing; R94.5 Abnormal results of liver function studies
CPT/HCPCS: 36415; 71046; 80053; 80074; 85025

== ENCOUNTER 2021-08-10 16:32 | Outpatient (CLI) | payer OTHER, SELFPAY ==
--- NOTE | ~2021-08-10 | XR_ITS ---
XR tibia fibula LT 2V DATE: 08/10/2021 16:55 INDICATION: Pain of medial distal lower leg TECHNIQUE: AP and lateral views, 3 total views COMPARISON: None FINDINGS: There is some cortical thickening along the distal medial tibial shaft, corresponding to th e area of clinical complaint. Differential diagnosis includes stress fracture, much less likely osteo id osteoma. No other fracture or dislocation, periosteal reaction or bone destruction. Normal alignment at the kn ee joint but with osteoarthritic change at the medial compartment primarily. Normal alignment at the ankle joint. IMPRESSION: Probable healing or healed distal tibial shaft stress fracture Reviewed, dictated and finalized at location A.
== END 2021-08-10 16:33 | disposition home or self-care (01) ==
LOC: CHSIMG 16:34
PROVIDERS: PCP Internal Medicine; Visit Provider Internal Medicine
DX: M79.605 Pain in left leg (principal)
CPT/HCPCS: 73590

== ENCOUNTER 2021-11-04 10:26 | Outpatient (CLI) | payer OTHER, SELFPAY ==
[2021-11-04 10:45] LABS: Basophils Absolute Auto 0.06 K/mm3 (0.00-0.10); Basophils Percent Auto 0.6 % (0.0-1.0); Eosinophils Absolute Auto 0.09 K/mm3 (0.02-0.50); Eosinophils Percent Auto 0.9 % (1.0-6.0); Hematocrit 42.6 % (35.0-49.0); Hemoglobin 14.5 g/dL (12.0-15.0); Immature Granulocyte Absolute 0.03 K/mm3 (0.00-0.00); Immature Granulocyte Percent A 0.3 % (0.0-0.0); Lymphocytes Absolute Auto 2.66 K/mm3 (1.10-4.50); Lymphocytes Percent Auto 27.1 % (18.0-42.0); Mean Corpuscular Hemoglobin 30.6 pg (27.0-31.0); Mean Corpuscular Volume 89.9 fL (78.0-102.0); Mean Platelet Volume 9.7 fl (9.2-11.8); Monocytes Absolute Auto 0.74 K/mm3 (0.10-0.90); Monocytes Percent Auto 7.6 % (2.0-11.0); Neutrophils Absolute Auto 6.2 K/mm3 (1.7-7.2); Neutrophils Percent Auto 63.5 % (50.0-70.0); Platelet Count Result 290 K/mm3 (150-420); Red Blood Count 4.74 M/mm3 (4.20-5.40); Red Cell Distribution Width 14.7 % (11.6-14.4); White Blood Count 9.8 K/mm3 (4.8-10.8)
[2021-11-04 10:48] LABS: Add Urine Microscopic? YES; Appearance Urine Clear (Clear); Bilirubin Urine Negative (Negative); Blood Urine Negative (Negative); Color Urine Light Yellow (Yellow); Glucose Urine UA Negative (Negative); Ketones Urine Negative (Negative); Leukocyte Esterase Ur Trace LEU/UL (Negative); Nitrate Urine Negative (Negative); Protein Urine Negative (Negative); Urobilinogen Urine 0.2 mg/dL (0.2-1.0); pH Urine 5.5 (5.0-8.0)
[2021-11-04 10:51] LABS: Creatinine Urine 115.58 mg/dL (40-278); MALB Creatinine Ratio 18.8 mg/g (0-30); Microalbumin Urine Random 21.8 mg/L
[2021-11-04 10:55] LABS: Hemoglobin A1C 6.3 % (<5.7)
[2021-11-04 11:05] LABS: Bacteria Urine Trace /hpf; RBC Urine 0-2 /hpf (0-2); Squamous Epithelial Cell Urine Moderate /hpf (Few)
[2021-11-04 11:06] LABS: Alanine Aminotransferase 46 U/L (14-59); Albumin Level 3.2 g/dL (3.4-5.0); Alkaline Phosphatase 131 U/L (46-116); Anion Gap 8 mmol/L (8-16); Aspartate Amino Transferase 26 U/L (15-37); Bilirubin,Total 0.5 mg/dL (0.00-1.00); Blood Urea Nitrogen 8 mg/dL (7-18); Calcium 9.2 mg/dL (8.5-10.1); Carbon Dioxide 27 mmol/L (21-32); Chloride 105 mmol/L (98-108); Cholesterol 180 mg/dL (0-200); Creatine Kinase 47 U/L (26-192); Estimated Glomerular Filt Rate > 60; Glucose 124 mg/dL (70-99); HDL Direct 41 mg/dL (40-60); LDL Cholesterol Calculated 118 mg/dL (<130); Osmolality Calculated 289 mOsm/kg (285-295); Sodium 140 mmol/L (136-145); Total Protein 8.3 g/dL (6.4-8.2); Triglycerides 106 mg/dL (0-150)
[2021-11-08 19:31] LABS: Vitamin D 25 Hydroxy 35 ng/mL (30-100)
== END 2021-11-04 10:27 | disposition home or self-care (01) ==
LOC: CHSLAB 10:28
PROVIDERS: PCP Internal Medicine; Visit Provider Internal Medicine
DX: E78.5 Hyperlipidemia, unspecified (principal); I10 Essential (primary) hypertension; R73.01 Impaired fasting glucose; M81.0 Age-related osteoporosis without current pathological fracture; N39.0 Urinary tract infection, site not specified
CPT/HCPCS: 36415; 80053; 80061; 81001; 82043; 82306; 82550; 83036; 85025

== ENCOUNTER 2021-11-29 08:48 | Outpatient (CLI) | payer OTHER, SELFPAY ==
[2021-11-29 09:13] LABS: Glucose 126 mg/dL (70-99)
== END 2021-11-29 08:49 | disposition home or self-care (01) ==
LOC: CHSLAB 08:51
PROVIDERS: PCP Internal Medicine; Visit Provider Internal Medicine
DX: R73.01 Impaired fasting glucose (principal)
CPT/HCPCS: 36415; 82947

== ENCOUNTER 2021-12-02 09:18 | Outpatient (CLI) | payer OTHER, SELFPAY ==
--- NOTE | ~2021-12-02 | CT_ITS ---
EXAMINATION: CT lung screening DATE: 12/02/2021 09:47 INDICATION: Personal history of nicotine dependence, current smoker with 47 pack year history TECHNIQUE: Computed tomography (CT) of the chest was performed without intravenous contrast. The dose -length product (DLP) was 304.10 mGy-cm. Automated exposure control and iterative reconstruction tech Cydan were employed. COMPARISON: 10/28/2020 FINDINGS: There is mild emphysema. A stable 5 mm nodule is present in the right upper lobe. There is mild dependent atelectasis. There is a new 4 mm nodule of the right middle lobe on image 54. No pleur al effusion or pneumothorax. No pathologically enlarged thoracic lymph nodes are identified. The hear t size is normal. Calcified pulmonary nodules and calcified left hilar lymph nodes are consistent wit h old granulomatous disease. There is severe thoracic spondylosis with fusion of multiple thoracic ve rtebral bodies. IMPRESSION: 1. Lung-RADS category 3: Probably benign. Followup with noncontrast low-dose chest CT in 6 months is recommended. Reviewed, dictated and finalized at location B. IMPRESSION: 1. Lung-RADS category 3: Probably benign. Followup with noncontrast low-dose est CT in 6 months is recommended.
--- NOTE | ~2021-12-02 | MM_ITS ---
EXAMINATION: MM screening luis a BI w keshav HISTORY: Screening TECHNIQUE: Craniocaudal and mediolateral oblique 3-D tomosynthesis images were obtained and synthetic 2-D images were generated. CAD analysis was submitted and interpreted. COMPARISON: Comparison to multiple prior studies sequentially, with oldest reviewed study dated 04/27. BREAST PARENCHYMAL COMPOSITION: Breast composition is almost entirely fatty FINDINGS: There is a subareolar mass of the right breast which is slightly larger than on prior studi es. The left breast is stable without evidence for malignancy. There are no suspicious masses, calcif ications or architectural distortion in the left breast. IMPRESSION: 1. Subtle enlargement of right subareolar mass. 2. Additional mammographic views and possible breast ultrasound are recommended. BI-RADS Category 0: Incomplete: Needs additional imaging evaluation. Reviewed, dictated and finalized at location A. IMPRESSION: 1. Subtle enlargement of right subareolar mass. 2. Additional mammographic views and possible breast ultrasound are recommended . BI-RADS Category 0: Incomplete: Needs additional imaging evaluation.
== END 2021-12-02 09:19 | disposition home or self-care (01) ==
LOC: CHSIMG 09:19
PROVIDERS: PCP Internal Medicine; Visit Provider Internal Medicine
DX: Z12.2 Encounter for screening for malignant neoplasm of respiratory organs (principal); Z87.891 Personal history of nicotine dependence; Z12.31 Encounter for screening mammogram for malignant neoplasm of breast
CPT/HCPCS: 71271; 77063; 77067

== ENCOUNTER 2021-12-09 08:36 | Outpatient (CLI) | payer OTHER, SELFPAY ==
--- NOTE | ~2021-12-09 | MMUS_ITS ---
EXAMINATION: MM diagnostic luis a RT w keshav, US breast RT limited HISTORY: Subareolar right breast mass on screening mammogram TECHNIQUE: Additional 3-D tomosynthesis images of the right breast were performed and synthetic 2-D i mages were generated. CAD analysis was submitted and interpreted. High resolution limited right breas t ultrasound was performed. COMPARISON: 12/02/2021, 12/03/2020 , 08/20/2018 FINDINGS: MAMMOGRAPHIC FINDINGS: There is an 8 mm oval, low density mass in the subareolar aspect of the breast with slight increase i n size when compared to prior mammograms. ULTRASOUND: There is a mildly dilated duct in the subareolar aspect of the breasts without focal mass identified. IMPRESSION: 1. Mildly dilated subareolar duct of the right breast without identifiable mass. 2. Recommend routine screening mammography in one year. BI-RADS Category 2: Benign finding(s). Reviewed, dictated and finalized at location A. IMPRESSION: 1. Mildly dilated subareolar duct of the right breast without identifiable mass . 2. Recommend routine screening mammography in one year. BI-RADS Category 2: Benign finding(s).
== END 2021-12-09 08:37 | disposition home or self-care (01) ==
LOC: CHSIMG 08:37
PROVIDERS: PCP Internal Medicine; Visit Provider Internal Medicine
DX: R92.8 Other abnormal and inconclusive findings on diagnostic imaging of breast (principal)
CPT/HCPCS: 76642; 77061; 77065; G0279

== ENCOUNTER 2022-06-13 08:46 | Outpatient (CLI) | payer OTHER, SELFPAY ==
[2022-06-13 09:14] LABS: Basophils Absolute Auto 0.03 K/mm3 (0.00-0.10); Basophils Percent Auto 0.3 % (0.0-1.0); Eosinophils Absolute Auto 0.01 K/mm3 (0.02-0.50); Eosinophils Percent Auto 0.1 % (1.0-6.0); Hematocrit 42.4 % (35.0-49.0); Hemoglobin 14.4 g/dL (12.0-15.0); Immature Granulocyte Absolute 0.02 K/mm3 (0.00-0.00); Immature Granulocyte Percent A 0.2 % (0.0-0.0); Lymphocytes Absolute Auto 2.24 K/mm3 (1.10-4.50); Lymphocytes Percent Auto 25.6 % (18.0-42.0); Mean Corpuscular Hemoglobin 30.6 pg (27.0-31.0); Mean Corpuscular Volume 90.2 fL (78.0-102.0); Mean Platelet Volume 9.6 fl (9.2-11.8); Monocytes Absolute Auto 0.73 K/mm3 (0.10-0.90); Monocytes Percent Auto 8.3 % (2.0-11.0); Neutrophils Absolute Auto 5.7 K/mm3 (1.7-7.2); Neutrophils Percent Auto 65.5 % (50.0-70.0); Platelet Count Result 293 K/mm3 (150-420); Red Cell Distribution Width 14.8 % (11.6-14.4); White Blood Count 8.8 K/mm3 (4.8-10.8)
[2022-06-13 09:15] LABS: Add Urine Microscopic? NO; Appearance Urine Clear (Clear); Bilirubin Urine Negative (Negative); Blood Urine Negative (Negative); Color Urine Light Yellow (Yellow); Glucose Urine UA Negative (Negative); Ketones Urine Negative (Negative); Leukocyte Esterase Ur Negative LEU/UL (Negative); Nitrate Urine Negative (Negative); Protein Urine Negative (Negative); Urobilinogen Urine 0.2 mg/dL (0.2-1.0); pH Urine 6.5 (5.0-8.0)
[2022-06-13 09:21] LABS: Hemoglobin A1C 5.9 % (<5.7)
[2022-06-13 09:50] LABS: Alanine Aminotransferase 51 U/L (14-59); Albumin Level 3.4 g/dL (3.4-5.0); Alkaline Phosphatase 123 U/L (46-116); Anion Gap 6 mmol/L (8-16); Aspartate Amino Transferase 28 U/L (15-37); Bilirubin,Total 0.4 mg/dL (0.00-1.00); Blood Urea Nitrogen 8 mg/dL (7-18); Calcium 8.7 mg/dL (8.5-10.1); Carbon Dioxide 30 mmol/L (21-32); Chloride 103 mmol/L (98-108); Cholesterol 203 mg/dL (0-200); Creatine Kinase 45 U/L (26-192); Estimated Glomerular Filt Rate > 60; Glucose 128 mg/dL (70-99); HDL Direct 39 mg/dL (40-60); LDL Cholesterol Calculated 129 mg/dL (<130); Osmolality Calculated 288 mOsm/kg (285-295); Potassium 4.3 mmol/L (3.5-5.1); Sodium 139 mmol/L (136-145); Total Protein 7.7 g/dL (6.4-8.2); Triglycerides 177 mg/dL (0-150)
[2022-06-13 10:03] LABS: Creatinine Urine 67.75 mg/dL (40-278)
[2022-06-13 10:32] LABS: MALB Creatinine Ratio 1.9 mg/g (0-30); Microalbumin Urine Random < 1.3 mg/L
[2022-06-15 16:57] LABS: Vitamin D 25 Hydroxy 32 ng/mL (30-100)
== END 2022-06-13 08:47 | disposition home or self-care (01) ==
LOC: CHSLAB 08:49
PROVIDERS: PCP Internal Medicine; Visit Provider Internal Medicine
DX: E78.2 Mixed hyperlipidemia (principal); I10 Essential (primary) hypertension; R73.01 Impaired fasting glucose; M81.0 Age-related osteoporosis without current pathological fracture; N39.0 Urinary tract infection, site not specified
CPT/HCPCS: 36415; 80053; 80061; 81003; 82043; 82306; 82550; 83036; 85025

== ENCOUNTER 2022-07-27 15:28 | Outpatient (CLI) | payer OTHER, SELFPAY ==
--- NOTE | ~2022-07-27 | XR_ITS ---
[XR ribs RT 2V ] INDICATION: Right rib pain TECHNIQUE: Frontal projection of the upper right ribs, frontal projection of the lower right ribs, ob lique projection of all the right ribs, frontal inspiratory chest x-ray for interpretation. FINDINGS: There are no displaced rib fractures identified. There are no soft tissue abnormality see n. The lungs are clear. IMPRESSION: 1:No acute displaced rib fractures. Reviewed, dictated and finalized at location L. OYMENT INSTRUCTIONAL ASSOCIATE
== END 2022-07-27 15:29 | disposition home or self-care (01) ==
LOC: CHSIMG 15:30
PROVIDERS: PCP Internal Medicine; Visit Provider Nurse Practitioner Family
DX: R07.81 Pleurodynia (principal)
CPT/HCPCS: 71100

== ENCOUNTER 2022-08-31 00:26 | Day surgery (SDC) | payer OTHER, SELFPAY ==
[2022-08-21 08:22] VITALS: BMI 40.1
[2022-08-31 06:32] VITALS: BP 144/75; PULSE 93; RESP 18; TEMP 36.1; O2SAT 96
[2022-08-31] MEDS: LACTATED RINGERS 1,000 ML 150 ML IV CONT (06:34)
--- NOTE | 2022-08-31 07:13 | WPDANESEPPF ---
Anes - Initial Pre Proc Eval Procedure: Operation Date: 08/31/22 07:30 Proposed Procedures p Colonoscopy - gA Foss DO Date/Time: 08/31/22 07:13 Surgeon: Ag Foss DO Pre Op Diagnosis: hx colon polyps Patient Data Age: 62 Gender: F Height: 1.63 m Weight: 109.6 kg Last Vital Signs Temp 97 F L 08/31/22 06:32 Pulse 93 08/31/22 06:32 Resp 18 08/31/22 06:32 BP 144/75 H 08/31/22 06:32 Pulse Ox 96 08/31/22 06:32 O2 Del Method Room Air 08/31/22 06:32 Allergies Allergy/AdvReac Type Severity Reaction Status Date / Time No Known Allergies Allergy Verified 08/31/22 06:31 Home Medications Medication Instructions Recorded Confirmed Type amitriptyline 25 mg tablet 25 mg PO DAILY 12/08/20 08/31/22 History amlodipine 10 mg tablet 10 mg PO DAILY 12/08/20 08/31/22 History atorvastatin 40 mg tablet 40 mg PO DAILY 12/08/20 08/31/22 History baclofen 10 mg tablet 10 mg PO DAILY 12/08/20 08/31/22 History chlordiazepoxide HCl 25 mg capsule 25 mg PO DAILY 12/08/20 08/31/22 History fluticasone fur. 100 mcg-umeclid 1 inh inhalation DAILY 12/08/20 08/31/22 History 62.5 mcg-vilant 25 mcg inhalat.powder (Trelegy Ellipta) fluticasone propionate 50 1 spray intranasal PRN PRN Allergy 12/08/20 08/31/22 History mcg/actuation nasal Symptoms spray,suspension gabapentin 600 mg tablet 600 mg PO DAILY 12/08/20 08/31/22 History meloxicam 15 mg tablet 15 mg PO DAILY 12/08/20 08/31/22 History omeprazole 20 mg delayed 20 mg PO DAILY 12/08/20 08/31/22 History release,disintegrating tablet venlafaxine 150 mg 150 mg PO DAILY 12/08/20 08/31/22 History capsule,extended release 24 hr adalimumab 10 mg/0.1 mL See Rx Instructions subcut .COMPLEX 10/31/21 08/31/22 History subcutaneous syringe kit (Abdirizak(CF)) Patient hx anesthesia problems: none Family hx anesthesia problems: none Results Review: All pre-operative results and documents have been reviewed as part of the pre-operative evaluation. [facility] Past Medical History Medical History Anxiety COPD (chronic obstructive pulmonary disease) HTN (hypertension) Obesity Social History Social History Smoking packs per day: 1.5 Smoking cigarettes per day: 30.0 Years smoked: 30 Smoking pack-years: 45.00 Smoking status: Current every day smoker Tobacco type: cigarettes Alcohol intake: current Alcohol use details: rarely Substance use: never Substance use type: does not use Living arrangements: with family Gender identity (if verbalized by the patient): Female Spiritual care concerns: No Anes - Eval Final PreProcedure Day of Procedure 08/31/22 07:13 Patient weight: morbidly obese Heart: regular rate and rhythm Lungs: clear to auscultation Airway: Mallampati scale class III Neurological: alert and oriented Last oral intake: >/= 8 hours ASA classification: III Emergent: no Anesthetic plan: proceed Anesthesia type and monitoring: general GIVS and standard monitoring Results Review: All pre-operative results and documents have been reviewed as part of the pre-operative evaluation. Informed Consent: The patient's anesthetic plan and its attendant risks and benefits were discussed with the patient/family/POA. Questions were solicited and answers provided to the satisfaction of the patient/family/POA.
--- NOTE | 2022-08-31 07:33 | PM.IMHP ---
H&P: HPI History of Present Illness Date/Time: 08/31/22 07:33 Chief Complaint: History of colon polyps Narrative: this is a 62-year-old woman who presents for colonoscopy. Her last colonoscopy was several years ago and polyps were removed at that time. She denies any hematochezia or melena. She has no family history of colon cancer. Review of Systems Review of Systems: All systems reviewed & are unremarkable except as noted in HPI and below Constitutional: Constitutional: Denies chills, Denies fever(s), Denies headache(s) and Denies weight loss Eyes: Eyes: Denies change in vision ENT: Denies dizziness, Denies headache(s), Denies neck mass and Denies throat swelling Cardiovascular: Cardiovascular: Denies chest pain, Denies lightheadedness and Denies dyspnea Respiratory: Respiratory: Denies cough, Denies dyspnea and Denies wheezing Gastrointestinal: Gastrointestinal: Denies abdominal pain, Denies change in bowel habits, Denies nausea and Denies vomiting Genitourinary: Genitourinary: Denies hematuria and Denies dysuria Musculoskeletal: Musculoskeletal: Reports as per HPI Integumentary/Breasts: Skin/Breast: Reports as per HPI Neurologic: Denies dizziness and Denies headache(s) Allergic/Immunologic: Allergic/Immunologic: Denies throat swelling and Denies wheezing [facility] Past Medical History Medical History (Reviewed 05/01/22 @ 15:23 by Maria Teresa Wiggins [facility]) Anxiety COPD (chronic obstructive pulmonary disease) HTN (hypertension) Obesity Social History Social History (Reviewed 05/01/22 @ 15:23 by Mraia Teresa Wiggins [facility]) Smoking packs per day: 1.5 Smoking cigarettes per day: 30.0 Years smoked: 30 Smoking pack-years: 45.00 Smoking status: Current every day smoker Tobacco type: cigarettes Alcohol intake: current Alcohol use details: rarely Substance use: never Substance use type: does not use Living arrangements: with family Gender identity (if verbalized by the patient): Female Spiritual care concerns: No Meds Home Medications and Allergies Home Medications Medication Instructions Recorded Confirmed Type amitriptyline 25 mg tablet 25 mg PO DAILY 12/08/20 08/31/22 History amlodipine 10 mg tablet 10 mg PO DAILY 12/08/20 08/31/22 History atorvastatin 40 mg tablet 40 mg PO DAILY 12/08/20 08/31/22 History baclofen 10 mg tablet 10 mg PO DAILY 12/08/20 08/31/22 History chlordiazepoxide HCl 25 mg capsule 25 mg PO DAILY 12/08/20 08/31/22 History fluticasone fur. 100 mcg-umeclid 1 inh inhalation DAILY 12/08/20 08/31/22 History 62.5 mcg-vilant 25 mcg inhalat.powder (Trelegy Ellipta) fluticasone propionate 50 1 spray intranasal PRN PRN Allergy 12/08/20 08/31/22 History mcg/actuation nasal Symptoms spray,suspension gabapentin 600 mg tablet 600 mg PO DAILY 12/08/20 08/31/22 History meloxicam 15 mg tablet 15 mg PO DAILY 12/08/20 08/31/22 History omeprazole 20 mg delayed 20 mg PO DAILY 12/08/20 08/31/22 History release,disintegrating tablet venlafaxine 150 mg 150 mg PO DAILY 12/08/20 08/31/22 History capsule,extended release 24 hr adalimumab 10 mg/0.1 mL See Rx Instructions subcut .COMPLEX 10/31/21 08/31/22 History subcutaneous syringe kit (Humira(CF)) Allergies Allergy/AdvReac Type Severity Reaction Status Date / Time No Known Allergies Allergy Verified 08/31/22 06:31 Vital Signs Vital Signs - 24 hr 08/31/22 06:32 Temperature 36.1 C L Pulse Rate 93 Respiratory Rate 18 Blood Pressure 144/75 H Pulse Oximetry 96 Oxygen Delivery Room Air Exam Const: General: no acute distress and alert Orientation/consciousness: patient oriented x3 HENMT: Head: normocephalic and atraumatic Ears: hearing grossly normal bilaterally Face/Nose/Sinus: Normal nares present Mouth: Yes Normal oral and palatal mucosa present Eyes: Periorbital: periorbital findings normal Sclera: sclerae normal EOM: EOMs intact bilaterally Neck: Neck: normal visual i
[2022-08-31 08:08] VITALS: BP 167/86; PULSE 117; RESP 28; O2SAT 90
[2022-08-31 08:16] VITALS: BP 131/73; PULSE 99; RESP 20; O2SAT 96
[2022-08-31 08:28] VITALS: BP 128/73; PULSE 96; RESP 26; O2SAT 95
== END 2022-08-31 08:38 | disposition home or self-care (01) ==
PROVIDERS: PCP Internal Medicine; Visit Provider Surgery
PROC: 0DJD8ZZ Inspection of Lower Intestinal Tract, Via Natural or Artificial Opening Endoscopic (ICD-10-PCS; CPT 45378; principal; 2022-08-31 07:30)
DX: Z12.11 Encounter for screening for malignant neoplasm of colon (principal); D12.3 Benign neoplasm of transverse colon; K63.5 Polyp of colon; K57.30 Diverticulosis of large intestine without perforation or abscess without bleeding; K64.8 Other hemorrhoids; J44.9 Chronic obstructive pulmonary disease, unspecified; I10 Essential (primary) hypertension; F41.9 Anxiety disorder, unspecified; E66.01 Morbid (severe) obesity due to excess calories; Z68.41 Body mass index [BMI] 40.0-44.9, adult; F17.210 Nicotine dependence, cigarettes, uncomplicated; Z79.51 Long term (current) use of inhaled steroids; Z79.620 Long term (current) use of immunosuppressive biologic
CPT/HCPCS: 45380; 88305; J2704; J7120

== ENCOUNTER 2022-12-11 12:36 | Outpatient (CLI) | payer OTHER, SELFPAY ==
--- NOTE | ~2022-12-11 | MM_ITS ---
EXAMINATION: MM screening [facility] BI w keshav HISTORY: Screening TECHNIQUE: Craniocaudal and mediolateral oblique 3-D tomosynthesis images were obtained and synthetic 2-D images were generated. CAD analysis was submitted and interpreted. COMPARISON: Comparison to multiple prior studies sequentially, with oldest reviewed study dated 11/23. BREAST PARENCHYMAL COMPOSITION: Breast composed of scattered areas of fibroglandular density FINDINGS: There is no evidence of suspicious mass, calcification, or architectural distortion to sugg est malignancy in either breast. There has been no suspicious interval change. IMPRESSION: 1. No mammographic evidence of malignancy. 2. Recommend routine screening mammography in one year. BI-RADS Category 1: Negative Reviewed, dictated and finalized at location A.
== END 2022-12-11 12:37 | disposition home or self-care (01) ==
LOC: CHSIMG 12:37
PROVIDERS: PCP Internal Medicine; Visit Provider Internal Medicine
DX: Z12.31 Encounter for screening mammogram for malignant neoplasm of breast (principal)
CPT/HCPCS: 77063; 77067

== ENCOUNTER 2022-12-12 09:41 | Outpatient (CLI) | payer OTHER, SELFPAY ==
[2022-12-12 09:55] LABS: Basophils Absolute Auto 0.04 K/mm3 (0.00-0.10); Basophils Percent Auto 0.6 % (0.0-1.0); Eosinophils Absolute Auto 0.01 K/mm3 (0.02-0.50); Eosinophils Percent Auto 0.1 % (1.0-6.0); Hematocrit 44.1 % (35.0-49.0); Hemoglobin 15.4 g/dL (12.0-15.0); Immature Granulocyte Absolute 0.02 K/mm3 (0.00-0.00); Immature Granulocyte Percent A 0.3 % (0.0-0.0); Lymphocytes Absolute Auto 2.49 K/mm3 (1.10-4.50); Lymphocytes Percent Auto 36.2 % (18.0-42.0); Mean Corpuscular HGB Conc 34.9 g/dL (32.0-36.0); Mean Corpuscular Hemoglobin 31.4 pg (27.0-31.0); Mean Corpuscular Volume 89.8 fL (78.0-102.0); Mean Platelet Volume 9.3 fl (9.2-11.8); Monocytes Absolute Auto 0.69 K/mm3 (0.10-0.90); Neutrophils Absolute Auto 3.6 K/mm3 (1.7-7.2); Neutrophils Percent Auto 52.8 % (50.0-70.0); Platelet Count Result 246 K/mm3 (150-420); Red Blood Count 4.91 M/mm3 (4.20-5.40); Red Cell Distribution Width 14.9 % (11.6-14.4); White Blood Count 6.9 K/mm3 (4.8-10.8)
[2022-12-12 10:00] LABS: Appearance Urine Clear (Clear); Bilirubin Urine Negative (Negative); Blood Urine Negative (Negative); Color Urine Light Yellow (Yellow); Glucose Urine UA Negative (Negative); Ketones Urine Negative (Negative); Leukocyte Esterase Ur Trace LEU/UL (Negative); Nitrate Urine Negative (Negative); Protein Urine Negative (Negative); Specific Grav Ur <= 1.005 (1.010-1.020); Urobilinogen Urine 0.2 mg/dL (0.2-1.0)
[2022-12-12 10:18] LABS: Add Urine Microscopic? YES; Bacteria Urine Trace /hpf; RBC Urine None seen /hpf (0-2); Squamous Epithelial Cell Urine Moderate /hpf (Few); WBC Urine 0-3 /hpf (0-3)
[2022-12-12 10:31] LABS: Alanine Aminotransferase 68 U/L (14-59); Albumin Level 3.5 g/dL (3.4-5.0); Alkaline Phosphatase 99 U/L (46-116); Anion Gap 5 mmol/L (8-16); Aspartate Amino Transferase 36 U/L (15-37); Bilirubin,Total 0.4 mg/dL (0.00-1.00); Blood Urea Nitrogen 7 mg/dL (7-18); Calcium 9.2 mg/dL (8.5-10.1); Carbon Dioxide 30 mmol/L (21-32); Chloride 105 mmol/L (98-108); Cholesterol 180 mg/dL (0-200); Creatine Kinase 54 U/L (26-192); Estimated Glomerular Filt Rate > 60; Glucose 113 mg/dL (70-99); HDL Direct 33 mg/dL (40-60); LDL Cholesterol Calculated 91 mg/dL (<130); Osmolality Calculated 289 mOsm/kg (285-295); Potassium 4.3 mmol/L (3.5-5.1); Sodium 140 mmol/L (136-145); Total Protein 8.4 g/dL (6.4-8.2); Triglycerides 282 mg/dL (0-150)
[2022-12-15 12:53] LABS: Vitamin D 25 Hydroxy 33 ng/mL (30-100)
== END 2022-12-12 09:42 | disposition home or self-care (01) ==
LOC: CHSLAB 09:44
PROVIDERS: PCP Internal Medicine; Visit Provider Internal Medicine
DX: N39.0 Urinary tract infection, site not specified (principal); R73.01 Impaired fasting glucose; E78.5 Hyperlipidemia, unspecified; E55.9 Vitamin D deficiency, unspecified
CPT/HCPCS: 36415; 80053; 80061; 81001; 82306; 82550; 83036; 85025

== ENCOUNTER 2023-01-26 11:01 | Outpatient (CLI) | payer OTHER, SELFPAY ==
[2023-01-26 11:54] LABS: Alanine Aminotransferase 68 U/L (14-59); Albumin Level 3.4 g/dL (3.4-5.0); Alkaline Phosphatase 112 U/L (46-116); Anion Gap 9 mmol/L (8-16); Aspartate Amino Transferase 39 U/L (15-37); Bilirubin,Total 0.4 mg/dL (0.00-1.00); Blood Urea Nitrogen 6 mg/dL (7-18); Calcium 9.2 mg/dL (8.5-10.1); Carbon Dioxide 26 mmol/L (21-32); Chloride 107 mmol/L (98-108); Estimated Glomerular Filt Rate > 60; Glucose 146 mg/dL (70-99); Osmolality Calculated 294 mOsm/kg (285-295); Potassium 3.8 mmol/L (3.5-5.1); Sodium 142 mmol/L (136-145); Total Protein 7.5 g/dL (6.4-8.2)
== END 2023-01-26 11:02 | disposition home or self-care (01) ==
LOC: CHSLAB 11:03
PROVIDERS: PCP Internal Medicine; Visit Provider Internal Medicine
DX: R74.8 Abnormal levels of other serum enzymes (principal)
CPT/HCPCS: 36415; 80053

== ENCOUNTER 2023-01-31 07:40 | Outpatient (CLI) | payer OTHER, SELFPAY ==
--- NOTE | ~2023-01-31 | US_ITS ---
EXAMINATION: US right upper quadrant DATE: 01/31/2023 07:58 INDICATION: Elevated liver function tests TECHNIQUE: Multiple grayscale and Doppler ultrasound images of the abdomen were obtained. COMPARISON: 08/19/2019 FINDINGS: Bowel gas obscures visualization of the pancreas. The liver demonstrates increased echogeni city, heterogenous echotexture, and decreased through transmission. No surface nodularity. Normal hep atopetal flow in the main portal vein. The gallbladder is normal with no abnormal wall thickening, pe richolecystic fluid or stones. The normal common bile duct measures 4 mm. There was no sonographic Mu rphy sign. IMPRESSION: 1. Diffuse hepatic steatosis. Reviewed, dictated and finalized at location B.
== END 2023-01-31 07:41 | disposition home or self-care (01) ==
LOC: CHSIMG 07:42
PROVIDERS: PCP Internal Medicine; Visit Provider Internal Medicine
DX: R74.01 Elevation of levels of liver transaminase levels (principal); K76.0 Fatty (change of) liver, not elsewhere classified
CPT/HCPCS: 76705

== ENCOUNTER 2023-04-24 11:24 | Outpatient (CLI) | payer OTHER, SELFPAY ==
[2023-04-24 12:17] LABS: Alanine Aminotransferase 67 U/L (14-59); Albumin Level 3.2 g/dL (3.4-5.0); Alkaline Phosphatase 95 U/L (46-116); Anion Gap 5 mmol/L (8-16); Aspartate Amino Transferase 32 U/L (15-37); Bilirubin,Total 0.4 mg/dL (0.00-1.00); Blood Urea Nitrogen 5 mg/dL (7-18); Calcium 9.2 mg/dL (8.5-10.1); Carbon Dioxide 31 mmol/L (21-32); Chloride 106 mmol/L (98-108); Estimated Glomerular Filt Rate > 60; Glucose 102 mg/dL (70-99); Osmolality Calculated 291 mOsm/kg (285-295); Potassium 4.3 mmol/L (3.5-5.1); Sodium 142 mmol/L (136-145); Total Protein 7.9 g/dL (6.4-8.2)
== END 2023-04-24 11:25 | disposition home or self-care (01) ==
LOC: CHSLAB 11:27
PROVIDERS: PCP Internal Medicine; Visit Provider Internal Medicine
DX: R74.8 Abnormal levels of other serum enzymes (principal)
CPT/HCPCS: 36415; 80053

== ENCOUNTER 2023-05-23 11:52 | Outpatient (CLI) | payer OTHER, SELFPAY ==
[2023-05-23 13:23] LABS: Basophils Absolute Auto 0.06 K/mm3 (0.00-0.10); Basophils Percent Auto 0.6 % (0.0-1.0); Eosinophils Absolute Auto 0.02 K/mm3 (0.02-0.50); Eosinophils Percent Auto 0.2 % (1.0-6.0); Hemoglobin 15.5 g/dL (12.0-15.0); Immature Granulocyte Absolute 0.03 K/mm3 (0.00-0.00); Immature Granulocyte Percent A 0.3 % (0.0-0.0); Lymphocytes Absolute Auto 2.01 K/mm3 (1.10-4.50); Mean Corpuscular HGB Conc 34.4 g/dL (32.0-36.0); Mean Corpuscular Hemoglobin 31.3 pg (27.0-31.0); Mean Corpuscular Volume 90.9 fL (78.0-102.0); Mean Platelet Volume 10.3 fl (9.2-11.8); Monocytes Absolute Auto 0.92 K/mm3 (0.10-0.90); Monocytes Percent Auto 9.2 % (2.0-11.0); Neutrophils Percent Auto 69.7 % (50.0-70.0); Platelet Count Result 285 K/mm3 (150-420); Red Blood Count 4.95 M/mm3 (4.20-5.40); Red Cell Distribution Width 14.1 % (11.6-14.4)
[2023-05-23 13:33] LABS: Alanine Aminotransferase 55 U/L (14-59); Albumin Level 3.5 g/dL (3.4-5.0); Alkaline Phosphatase 109 U/L (46-116); Anion Gap 8 mmol/L (8-16); Aspartate Amino Transferase 29 U/L (15-37); Bilirubin,Total 0.3 mg/dL (0.00-1.00); Blood Urea Nitrogen 6 mg/dL (7-18); CRP 1.4 mg/dL (0.0-0.9); Calcium 9.3 mg/dL (8.5-10.1); Carbon Dioxide 29 mmol/L (21-32); Chloride 101 mmol/L (98-108); Estimated Glomerular Filt Rate > 60; Glucose 95 mg/dL (70-99); Osmolality Calculated 283 mOsm/kg (285-295); Potassium 3.9 mmol/L (3.5-5.1); Sodium 138 mmol/L (136-145); Total Protein 7.6 g/dL (6.4-8.2)
[2023-05-23 14:25] LABS: Erythrocyte Sedimentation Rate 36 mm/hr (0-20)
[2023-05-25 12:33] LABS: NIL 0.01 IU/mL; Quantiferon TB Plus, 1T NEGATIVE (NEGATIVE)
[2023-05-26 11:39] LABS: Hepatitis B Core Ab Total Nonreactive (Nonreactive)
[2023-05-26 11:41] LABS: Hepatitis B Surface Antibody Nonreactive (Nonreactive); Hepatitis B Surface Antigen Nonreactive (Nonreactive); Hepatitis C Virus Antibody Nonreactive
== END 2023-05-23 11:53 | disposition home or self-care (01) ==
LOC: CHSLAB 11:57
PROVIDERS: PCP Internal Medicine
DX: M46.90 Unspecified inflammatory spondylopathy, site unspecified (principal); Z79.899 Other long term (current) drug therapy
CPT/HCPCS: 36415; 80053; 85025; 85652; 86140; 86480; 86704; 86706; 86803; 87340

== ENCOUNTER 2023-06-07 08:27 | Outpatient (CLI) | payer OTHER, SELFPAY ==
[2023-06-07 08:44] LABS: Basophils Absolute Auto 0.04 K/mm3 (0.00-0.10); Basophils Percent Auto 0.5 % (0.0-1.0); Eosinophils Absolute Auto 0.03 K/mm3 (0.02-0.50); Eosinophils Percent Auto 0.3 % (1.0-6.0); Hematocrit 43.9 % (35.0-49.0); Hemoglobin 15.2 g/dL (12.0-15.0); Immature Granulocyte Absolute 0.03 K/mm3 (0.00-0.00); Immature Granulocyte Percent A 0.3 % (0.0-0.0); Lymphocytes Absolute Auto 2.27 K/mm3 (1.10-4.50); Lymphocytes Percent Auto 26.2 % (18.0-42.0); Mean Corpuscular HGB Conc 34.6 g/dL (32.0-36.0); Mean Corpuscular Hemoglobin 31.5 pg (27.0-31.0); Mean Corpuscular Volume 90.9 fL (78.0-102.0); Mean Platelet Volume 9.2 fl (9.2-11.8); Monocytes Absolute Auto 0.65 K/mm3 (0.10-0.90); Monocytes Percent Auto 7.5 % (2.0-11.0); Neutrophils Absolute Auto 5.7 K/mm3 (1.7-7.2); Neutrophils Percent Auto 65.2 % (50.0-70.0); Platelet Count Result 345 K/mm3 (150-420); Red Blood Count 4.83 M/mm3 (4.20-5.40); Red Cell Distribution Width 13.6 % (11.6-14.4); White Blood Count 8.7 K/mm3 (4.8-10.8)
[2023-06-07 08:49] LABS: Appearance Urine Clear (Clear); Bilirubin Urine Negative (Negative); Blood Urine Negative (Negative); Color Urine Yellow (Yellow); Glucose Urine UA Negative (Negative); Ketones Urine Negative (Negative); Leukocyte Esterase Ur Negative LEU/UL (Negative); Nitrate Urine Negative (Negative); Protein Urine Negative (Negative); Specific Grav Ur 1.015 (1.010-1.020); Urobilinogen Urine 0.2 mg/dL (0.2-1.0)
[2023-06-07 08:50] LABS: Add Urine Microscopic? NO
[2023-06-07 09:06] LABS: Hemoglobin A1C 5.9 % (<5.7)
[2023-06-07 09:25] LABS: Alanine Aminotransferase 55 U/L (14-59); Albumin Level 2.9 g/dL (3.4-5.0); Alkaline Phosphatase 141 U/L (46-116); Anion Gap 10 mmol/L (8-16); Aspartate Amino Transferase 27 U/L (15-37); Bilirubin,Total 0.3 mg/dL (0.00-1.00); Blood Urea Nitrogen 7 mg/dL (7-18); Calcium 8.8 mg/dL (8.5-10.1); Carbon Dioxide 28 mmol/L (21-32); Chloride 102 mmol/L (98-108); Cholesterol 175 mg/dL (0-200); Creatine Kinase 32 U/L (26-192); Estimated Glomerular Filt Rate > 60; Glucose 108 mg/dL (70-99); HDL Direct 37 mg/dL (40-60); LDL Cholesterol Calculated 104 mg/dL (<130); Osmolality Calculated 289 mOsm/kg (285-295); Potassium 4.3 mmol/L (3.5-5.1); Sodium 140 mmol/L (136-145); Total Protein 7.5 g/dL (6.4-8.2); Triglycerides 172 mg/dL (0-150)
[2023-06-10 14:05] LABS: Vitamin D 25 Hydroxy 35 ng/mL (30-100)
== END 2023-06-07 08:28 | disposition home or self-care (01) ==
LOC: CHSLAB 08:30
PROVIDERS: PCP Internal Medicine; Visit Provider Internal Medicine
DX: N39.0 Urinary tract infection, site not specified (principal); E78.2 Mixed hyperlipidemia; I10 Essential (primary) hypertension; R73.01 Impaired fasting glucose; R53.82 Chronic fatigue, unspecified; E55.9 Vitamin D deficiency, unspecified
CPT/HCPCS: 36415; 80053; 80061; 81003; 82306; 82550; 83036; 85025

== ENCOUNTER 2023-07-11 12:13 | Outpatient (CLI) | payer OTHER, SELFPAY ==
--- NOTE | ~2023-07-11 | DEXA_ITS ---
Bone Density Report Name: OLIVA BARON Age: 63 Sex: Female Ethnicity: White Date of : 1960 Indication: postmenopausal; screening for osteoporosis; parental hip fracture; prior fracture; rheumatoid arthritis; Referring Provider: Joseluis Rodriguez Study: Bone densitometry was performed. Exam Date: July 11, 2023 Accession number: [id number] Bone Density: Region BMD T-score Z-score Classification AP Spine(L1-L4) 0.950 -0.9 0.8 Normal Femoral Neck (Left) 0.723 -1.1 0.3 Osteopenia Total Hip (Left) 0.847 -0.8 0.3 Normal Femoral Neck (Right) 0.676 -1.6 -0.1 Osteopenia Total Hip (Right) 0.859 -0.7 0.4 Normal Femoral Neck Mean 0.699 -1.3 0.1 Osteopenia Total Hip Mean 0.853 -0.7 0.4 Normal World Health Organization criteria for BMD impression classify patients as: Normal (T-score at or above -1.0), Osteopenia (T-score between -1.0 and -2.5), or Osteoporosis (T-score at or below -2.5). 10-year Fracture Risk(1): Major Osteoporotic Fracture 30% Hip Fracture 3.0% Reported Risk Factors: [place] (), Neck BMD=0.676, BMI=40.0, previous fracture, parental fracture, smoking, rheumatoid arthritis (1) FRAX(R) Version 3.08. Fracture probability calculated for an untreated patient. Fracture probability may be lower if the patient has received treatment. Clinical Information Provided by Patient: Has had a low trauma fracture Parent has had a hip fracture Smokes Has rheumatoid arthritis Patient maximum height was 64 Menopause Age: 54 No regular weight bearing exercise Does not regularly consume dairy products Drinks caffeinated beverages Onset of menses at age 15 Number of children 2 Impression: The patient has low bone mass, based on the Right Femoral Neck T-score. The patient has risk factors, including: parental hip fracture, smoking, previous fracture. Discussion: BONE DENSITY IS LOW AT ONE OR MORE SKELETAL SITES. This patient's lowest T-score is low at one or more skeletal sites. It meets the World Health Organization's (WHO) criteria for ?low bone mass? (T-score between -1.0 and -2.5). The patient's 10-year risk of fracture as calculated by FRAX is less than the threshold where pharmacological therapy is recommended by the National Osteoporosis Foundation (NOF). However, all treatment decisions require clinical judgment and consideration of individual patient factors, including patient preferences, comorbidities, previous drug use, risk factors not captured in the FRAX model (e.g., frailty, falls, vitamin D deficiency, increased bone turnover, interval significant decline in bone density) and possible under or overestimation of fracture risk by FRAX. The patient should follow a healthful lifestyle (good nutrition with adequate calcium and vitamin D, and appropriate weight-bearing exercise). Follow-Up: Consider repeating this study in 2
== END 2023-07-11 12:14 | disposition home or self-care (01) ==
PROVIDERS: PCP Internal Medicine; Visit Provider Internal Medicine
DX: Z78.0 Asymptomatic menopausal state (principal); M85.89 Other specified disorders of bone density and structure, multiple sites
CPT/HCPCS: 77080

== ENCOUNTER 2023-08-10 09:56 | Outpatient (CLI) | payer OTHER, SELFPAY ==
[2023-08-10] MEDS: ZOLEDRONIC ACID 5 MG/100 ML 100 ML 400 MG IVPB (10:22)
--- NOTE | 2023-08-10 10:22 | PC.NURSE ---
Here for Reclast infusion, ambulatory to room, call melly guzmán
[2023-08-10 10:30] VITALS: BP 147/68; PULSE 87; RESP 18; BMI 37.8
--- NOTE | 2023-08-10 10:44 | PC.NURSE ---
Discharged home, tolerated well, site clear, covered with bandage
== END 2023-08-10 09:57 | disposition home or self-care (01) ==
LOC: CHSTREATRM 10:00
PROVIDERS: PCP Internal Medicine; Visit Provider Internal Medicine
DX: M81.0 Age-related osteoporosis without current pathological fracture (principal)
CPT/HCPCS: 96374; J3489

== ENCOUNTER 2023-12-14 07:34 | Outpatient (CLI) | payer OTHER, SELFPAY ==
--- NOTE | ~2023-12-14 | MM_ITS ---
EXAMINATION: MM screening luis a BI w keshav HISTORY: Screening TECHNIQUE: Craniocaudal and mediolateral oblique 3-D tomosynthesis images were obtained and synthetic 2-D images were generated. CAD analysis was submitted and interpreted. COMPARISON: Comparison to multiple prior studies sequentially, with oldest reviewed study dated 07/2018. BREAST PARENCHYMAL COMPOSITION: Not dense: There are scattered areas of fibroglandular density. FINDINGS: There is no evidence of suspicious mass, calcification, or architectural distortion to sugg est malignancy in either breast. There has been no suspicious interval change. IMPRESSION: 1. No mammographic evidence of malignancy. 2. Recommend routine screening mammography in one year. BI-RADS Category 1: Negative Reviewed, dictated and finalized at location B.
[2023-12-14 07:51] LABS: Hematocrit 42.6 % (35.0-49.0); Hemoglobin 14.7 g/dL (12.0-15.0); Mean Corpuscular HGB Conc 34.5 g/dL (32-36); Mean Corpuscular Hemoglobin 30.4 pg (27.0-31.0); Mean Corpuscular Volume 88.2 fL (78.0-102.0); Mean Platelet Volume 9.3 fl (9.2-11.8); Platelet Count Result 277 K/mm3 (150-420); Red Blood Count 4.83 M/mm3 (4.20-5.40); Red Cell Distribution Width 14.1 % (11.6-14.4); White Blood Count 7.7 K/mm3 (4.8-10.8)
[2023-12-14 07:54] LABS: Appearance Urine Clear (Clear); Bilirubin Urine Negative (Negative); Blood Urine Negative (Negative); Color Urine Light Yellow (Yellow); Glucose Urine UA Negative (Negative); Ketones Urine Negative (Negative); Leukocyte Esterase Ur Negative (Negative); Nitrate Urine Negative (Negative); Protein Urine Negative (Negative); Specific Grav Ur <= 1.005 (1.010-1.020); Urobilinogen Urine 0.2 mg/dL (0.2-1.0)
[2023-12-14 07:56] LABS: Add Urine Microscopic? NO
[2023-12-14 08:05] LABS: Hemoglobin A1C 5.7 % (<5.7)
[2023-12-14 08:22] LABS: Alanine Aminotransferase 56 U/L (14-59); Albumin Level 3.3 g/dL (3.4-5.0); Alkaline Phosphatase 109 U/L (46-116); Anion Gap 10 mmol/L (4-12); Aspartate Amino Transferase 34 U/L (15-37); Bilirubin,Total 0.5 mg/dL (0.00-1.00); Blood Urea Nitrogen 7 mg/dL (7-18); Calcium 9.2 mg/dL (8.5-10.1); Carbon Dioxide 28 mmol/L (21-32); Chloride 101 mmol/L (98-108); Cholesterol 178 mg/dL (0-200); Creatine Kinase 48 U/L (26-192); Estimated Glomerular Filt Rate > 60; Free T4 Free Thyroxine 0.79 ng/dL (0.76-1.46); Glucose 122 mg/dL (70-99); HDL Direct 41 mg/dL (40-60); LDL Cholesterol Calculated 109 mg/dL (<130); Osmolality Calculated 287 mOsm/kg (285-295); Sodium 139 mmol/L (136-145); Thyroid Stimulating Hormone 3.53 uIU/mL (0.36-3.74); Total Protein 7.7 g/dL (6.4-8.2); Triglycerides 139 mg/dL (0-150)
== END 2023-12-14 07:35 | disposition home or self-care (01) ==
PROVIDERS: PCP Internal Medicine; Visit Provider Internal Medicine
DX: I10 Essential (primary) hypertension (principal); E78.2 Mixed hyperlipidemia; R73.01 Impaired fasting glucose; K76.0 Fatty (change of) liver, not elsewhere classified; R53.82 Chronic fatigue, unspecified; Z12.31 Encounter for screening mammogram for malignant neoplasm of breast
CPT/HCPCS: 36415; 77063; 77067; 80053; 80061; 81003; 82550; 83036; 84439; 84443; 85027

== ENCOUNTER 2024-05-08 11:56 | Outpatient (CLI) | payer OTHER, SELFPAY ==
[2024-05-08 12:23] LABS: Hematocrit 39.4 % (35.0-49.0); Hemoglobin 13.8 g/dL (12.0-15.0); Mean Corpuscular Hemoglobin 30.4 pg (27.0-31.0); Mean Corpuscular Volume 86.8 fL (78.0-102.0); Mean Platelet Volume 9.1 fl (9.2-11.8); Platelet Count Result 341 K/mm3 (150-420); Red Blood Count 4.54 M/mm3 (4.20-5.40); Red Cell Distribution Width 14.6 % (11.6-14.4)
[2024-05-08 13:00] LABS: Alanine Aminotransferase 33 U/L (14-59); Alkaline Phosphatase 117 U/L (46-116); Anion Gap 11 mmol/L (4-12); Aspartate Amino Transferase 28 U/L (15-37); Bilirubin,Total 0.4 mg/dL (0.00-1.00); Blood Urea Nitrogen 4 mg/dL (7-18); CRP 2.2 mg/dL (0.0-0.9); Calcium 9.3 mg/dL (8.5-10.1); Carbon Dioxide 25 mmol/L (21-32); Chloride 104 mmol/L (98-108); Estimated Glomerular Filt Rate > 60; Glucose 110 mg/dL (70-99); Osmolality Calculated 287 mOsm/kg (285-295); Potassium 3.7 mmol/L (3.5-5.1); Sodium 140 mmol/L (136-145); Total Protein 6.8 g/dL (6.4-8.2)
[2024-05-08 13:04] LABS: Lactic Acid Reflex 1.2 mmol/L (0.4-2.0)
[2024-05-08 13:22] LABS: Erythrocyte Sedimentation Rate 43 mm/hr (0-20)
== END 2024-05-08 11:57 | disposition home or self-care (01) ==
PROVIDERS: PCP Internal Medicine; Visit Provider Internal Medicine
DX: R10.9 Unspecified abdominal pain (principal); R19.7 Diarrhea, unspecified
CPT/HCPCS: 36415; 80053; 83605; 85027; 85652; 86140

== ENCOUNTER 2024-05-09 09:25 | Outpatient (CLI) | payer OTHER, SELFPAY ==
--- NOTE | ~2024-05-09 | CT_ITS ---
EXAMINATION: CT abdomen pelvis w con DATE: 05/09/2024 09:50 INDICATION: Lower abdominal pain and 3 weeks of diarrhea TECHNIQUE: Computed tomography (CT) of the abdomen and pelvis was performed with 100 mL Omnipaque-350 intravenous contrast. Automated exposure control and iterative reconstruction technique were employe d. The dose-length product was 1378.97 mGy-cm. COMPARISON: 11/16/2017 FINDINGS: Mild dependent atelectasis in the bilateral lower lobes. Heart size is normal. Atherosclerotic rojas ry artery calcific location. No pericardial or pleural effusion. Liver, spleen, pancreas and bilatera l adrenal glands are normal. Tiny calcified gallstone at the fundus of the normal decompressed gallbl adder. 5 mm low-attenuation left renal cyst. Small focus of cortical scarring at the upper pole the r ight kidney. There is wall thickening at the sigmoid colon and rectum with hyperemia to associated ba silar atelectasis consistent with a distal colitis. Small bowel and appendix are normal. Bladder, [place] and bilateral adnexa are unremarkable. No free intraperitoneal gas or fluid. No pathologically en larged abdominal or pelvic lymphadenopathy. Severe midthoracic and moderate lumbar spondylosis. IMPRESSION: 1. Distal colitis which could be infectious or inflammatory in etiology. 2. Tiny gallstone. Reviewed, dictated and finalized at location A. LE LOOM WEAVER
[2024-05-09 10:26] LABS: Toxigenic C. Diff NEGATIVE (NEGATIVE)
[2024-05-15 23:53] LABS: Calprotectin, Stool 78 mcg/g
[2024-05-16 16:09] LABS: Pancreatic Elastase, Stool 123 mcg/g (>200)
== END 2024-05-09 09:26 | disposition home or self-care (01) ==
PROVIDERS: PCP Internal Medicine; Visit Provider Internal Medicine
DX: R10.32 Left lower quadrant pain (principal); K52.9 Noninfective gastroenteritis and colitis, unspecified; N20.0 Calculus of kidney
CPT/HCPCS: 74177; 82653; 83993; 87045; 87427; 87449; 87493; Q9967

== ENCOUNTER 2024-06-19 09:58 | Outpatient (CLI) | payer OTHER, SELFPAY ==
[2024-06-19 10:23] LABS: Hematocrit 44.1 % (35.0-49.0); Mean Corpuscular Hemoglobin 30.7 pg (27.0-31.0); Mean Corpuscular Volume 90.4 fL (78.0-102.0); Mean Platelet Volume 9.5 fl (9.2-11.8); Platelet Count Result 238 K/mm3 (150-420); Red Blood Count 4.88 M/mm3 (4.20-5.40); Red Cell Distribution Width 15.6 % (11.6-14.4)
[2024-06-19 10:26] LABS: Add Urine Microscopic? NO; Appearance Urine Clear (Clear); Bilirubin Urine Negative (Negative); Blood Urine Negative (Negative); Color Urine Yellow (Yellow); Glucose Urine UA Negative (Negative); Ketones Urine Negative (Negative); Leukocyte Esterase Ur Negative LEU/UL (Negative); Nitrate Urine Negative (Negative); Protein Urine Negative (Negative); Urobilinogen Urine 0.2 mg/dL (0.2-1.0); pH Urine 5.5 (5.0-8.0)
[2024-06-19 10:45] LABS: Hemoglobin A1C 5.2 % (<5.7)
[2024-06-19 11:18] LABS: Alanine Aminotransferase 62 U/L (14-59); Albumin Level 3.6 g/dL (3.4-5.0); Alkaline Phosphatase 94 U/L (46-116); Anion Gap 9 mmol/L (4-12); Aspartate Amino Transferase 39 U/L (15-37); Bilirubin,Total 0.6 mg/dL (0.00-1.00); Blood Urea Nitrogen 4 mg/dL (7-18); Calcium 8.8 mg/dL (8.5-10.1); Carbon Dioxide 30 mmol/L (21-32); Chloride 105 mmol/L (98-108); Cholesterol 192 mg/dL (0-200); Creatine Kinase 39 U/L (26-192); Estimated Glomerular Filt Rate > 60; Glucose 113 mg/dL (70-99); HDL Direct 37 mg/dL (40-60); LDL Cholesterol Calculated 104 mg/dL (<130); Osmolality Calculated 295 mOsm/kg (285-295); Potassium 3.6 mmol/L (3.5-5.1); Sodium 144 mmol/L (136-145); Total Protein 7.1 g/dL (6.4-8.2); Triglycerides 257 mg/dL (0-150)
[2024-06-20 09:14] LABS: Vitamin D 25 Hydroxy 41 ng/mL (30-100)
== END 2024-06-19 09:59 | disposition home or self-care (01) ==
LOC: CHSLAB 10:01
PROVIDERS: PCP Internal Medicine; Visit Provider Internal Medicine
DX: E78.2 Mixed hyperlipidemia (principal); I10 Essential (primary) hypertension; R73.01 Impaired fasting glucose; N39.0 Urinary tract infection, site not specified; M81.0 Age-related osteoporosis without current pathological fracture
CPT/HCPCS: 36415; 80053; 80061; 81003; 82306; 82550; 83036; 85027

== ENCOUNTER 2024-07-04 09:12 | Outpatient (CLI) | payer OTHER, SELFPAY ==
--- NOTE | ~2024-07-04 | XR_ITS ---
EXAMINATION: XR chest 2V DATE: 07/04/2024 09:34 INDICATION: COPD presenting with nausea, vomiting and diarrhea. TECHNIQUE: frontal view of the chest was obtained. COMPARISON: Chest radiograph dated 07/27/[address] dated 12/02/2021 FINDINGS: The lungs are clear with no focal airspace opacities, pulmonary edema, pleural effusion or pneumothor ax. Heart size is normal with prominent bilateral pericardial fat pads at the anterior lung bases. Se safia thoracic spondylosis. IMPRESSION: 1. No acute cardiopulmonary disease. Reviewed, dictated and finalized at location B. KER AND POLISHER GOLD [employer]EL
[2024-07-04 09:35] LABS: Basophils Absolute Auto 0.04 K/mm3 (0.00-0.10); Basophils Percent Auto 0.6 % (0.0-1.0); Eosinophils Absolute Auto 0.04 K/mm3 (0.02-0.50); Eosinophils Percent Auto 0.6 % (1.0-6.0); Hematocrit 41.2 % (35.0-49.0); Hemoglobin 14.3 g/dL (12.0-15.0); Immature Granulocyte Absolute 0.03 K/mm3 (0.00-0.00); Immature Granulocyte Percent A 0.4 % (0.0-0.0); Lymphocytes Absolute Auto 1.78 K/mm3 (1.10-4.50); Lymphocytes Percent Auto 24.9 % (18.0-42.0); Mean Corpuscular HGB Conc 34.7 g/dL (32-36); Mean Corpuscular Hemoglobin 30.6 pg (27.0-31.0); Mean Platelet Volume 9.7 fl (9.2-11.8); Monocytes Absolute Auto 0.75 K/mm3 (0.10-0.90); Monocytes Percent Auto 10.5 % (2.0-11.0); Platelet Count Result 263 K/mm3 (150-420); Red Blood Count 4.68 M/mm3 (4.20-5.40); Red Cell Distribution Width 14.8 % (11.6-14.4); White Blood Count 7.1 K/mm3 (4.8-10.8)
--- OUTSIDE RECORDS SUMMARY | 2024-07-04 09:38 | XMS_ITS | CONTINUITY OF CARE DOCUMENT ---
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 Vanessa Wu MD Tobacco abuse active Aissatou Wu MD HTN essential active Aissatou Wu MD Hypercholesterolemia active Aissatou Wu MD Shortness of breath active Aissatou Connor ENCOUNTERS Date Type Provider Location Encounter Diag nosis - In-person encounter Office Visit Aissatou Wu MD [facility] Shortness of breathHypercholesterolemiaHTN essentialTobacco abuseCHF - ?peripartum cardiomyopathy VITAL SIGNS Date Observation Value Provider Body Mass Index (Ratio) 30.99 kg/m2 Margarito Wu MD blood pressure, diastolic 70 mm[Hg] Masood Wu MD blood pressure, systolic 116 mm[Hg] Vanessa Wu MD pulse rate 88 /min Aissatou Wu MD oxygen saturation, oximetry 96 % Aissatou Wu MD respiratory rate E&M 16 /min Jose Carlos Wu MD weight E&M 192 [lb_av] Aissatou Wu MD height E&M 66 [in_i] Aissatou Wu MD ALLERGIES No Known Drug Allergies HISTORY OF MEDICATION USE Medication Status Instructions Dates Provider Indications Com ments ONE-A-DAY WOMENS 50+ ADVANTAGE ORAL TABLET active 1 tablet daily Aissatou Wu MD AMLODIPINE BESYLATE 10 MG ORAL TABLET active 1 tablet daily Aissatou Wu MD PRISTIQ 50 MG ORAL TABLET EXTENDED RELEASE 24 HOUR active 1 tablet daily Aissatou Wu MD MELOXICAM 15 MG ORAL TABLET active 1 tablet daily Aissatou Wu MD CRESTOR 20 MG ORAL TABLET active ONE TAB. DAILY Aissatou Wu MD SOCIAL HISTORY Date Observation Value Provider social history E&M Marital Statu s: C hildren: 2 E xercise: Yes, every 2-3 days C affeine: Yes, coffee, tea, soda A lcohol: Yes, 5 daily Aissatou Wu MD social history reviewed E&M revi ewed - no changes required Aissatou Wu MD smoking/tobacco cess ation, patient education and counseling yes Aissatou Wu MD number of years as a smoker 30 a Aissatou Wu MD smoking history, tot al pack/day 1 Aissatou Wu MD smoking, date started 1984 Lydia Wu MD cigarette use yes Aissatou Wu MD smoking status Current every day smoker M naveen Wu MD FAMILY HISTORY Family Member Condition Mother Negative FH of Coron brown Artery Disease INSURANCE PROVIDERS Payer name Policy type / Coverage type [place] [employer] party ID [facility] [id number] TREATMENT PLAN Date Name Performer printed 09/04/14 1355 : H er updated medication list for this problem includes: Crestor 20 Mg Tabs (Rosuvastatin calcium) ..... One tab. daily Orders: C omplete Echo (CPT-10832) S TR - Adenosine (47284) Aissatou Wu MD printed 09/04/14 1355 : O rders: C omplete Echo ([id number]) S TR - Adenosine ([id number]) Aissatou Wu MD printed 09/04/14 1355 : H er updated medication list for this problem includes: Amlodipine Besylate 10 Mg Oral Tabs (Amlodipine besylate) ..... 1 tablet daily Orders: C omplete Echo (CPT-[id number]) S TR - Adenosine (35452) Aissatou Wu MD printed 09/04/14 1355 : H er updated medication list for this problem includes: Amlodipine Besylate 10 Mg Oral Tabs (Amlodipine besylate) ..... 1 tablet daily Orders: C omplete Echo (CPT-[id number]) S TR - Adenosine (44632) Aissatou Wu MD Date Name STR - Adenosine Complete Echo
--- OUTSIDE RECORDS SUMMARY | 2024-07-04 09:38 | XMS_ITS | Encounter Summary ---
Author Organization [facility] Address [address] [place] [address] Phone Care Team Providers Care Java Designer Name Role Phone Joseluis Rodriguez MD Primary Care Provider [phone] Encounter Details Date Type Department Care Team ([facility] Contact Info) Description 05/23/2023 Orders Only [facility] Scanning, Provider Social History Tobacco Use Types Packs/Day Years Used Date Smoking Tobacco: Every Day Cigarettes 1 49.1 Started: 1975 Smokeless Tobacco: Never Alcohol Use Standard Drinks/Week Comments No 0 (1 standard drink = 0.6 oz pur e alcohol) Comments No Sex and Gender Information Value Date Recorded Sex Assigned at Not on file 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 Gender Identity Female 09/01/2019 7:13 PM CDT Sexual Orientation Straight 09/01/2019 7: 13 PM CDT documented as of this encounter Plan of Treatment Not on file documented as of this encounter Procedures Procedure Name Priority Date/Time Associated Diagnosis Comments SCAN - LABS 05/23/2023 documented in this encounter Results * SCAN - LABS (05/23/2023) us Provider Scanning Final Result documented in this encounter Visit Diagnoses Not on filedocumented in this encounter Care Teams Java Designer Relationship Specialty Start Date End Date Joseluis Rodriguez MD [address] [place] [address] PCP - General 08/08/17 documented as of this encounter
--- OUTSIDE RECORDS SUMMARY | 2024-07-04 09:38 | XMS_ITS | Encounter Summary ---
Author Organization [facility] Address [address] [place] [address] Phone Care Team Providers Care Trenching Machine Operator Name Role Phone Joseluis Rodriguez MD Primary Care Provider [phone] Encounter Details Date Type Department Care Team ([facility] Contact Info) Description 06/07/2023 Orders Only [facility] Scanning, Provider Social History Tobacco Use Types Packs/Day Years Used Date Smoking Tobacco: Every Day Cigarettes 1 49.1 Started: 1975 Smokeless Tobacco: Never Alcohol Use Standard Drinks/Week Comments No 0 (1 standard drink = 0.6 oz pur e alcohol) Comments No Sex and Gender Information Value Date Recorded Sex Assigned at Not on file 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 Gender Identity Female 09/01/2019 7:13 PM CDT Sexual Orientation Straight 09/01/2019 7: 13 PM CDT documented as of this encounter Plan of Treatment Not on file documented as of this encounter Procedures Procedure Name Priority Date/Time Associated Diagnosis Comments SCAN - LABS 06/07/2023 documented in this encounter Results * SCAN - LABS (06/07/2023) us Provider Scanning Final Result documented in this encounter Visit Diagnoses Not on filedocumented in this encounter Care Teams Trenching Machine Operator Relationship Specialty Start Date End Date Joseluis Rodriguez MD [address] [place] [address] PCP - General 08/08/17 documented as of this encounter
--- OUTSIDE RECORDS SUMMARY | 2024-07-04 09:38 | XMS_ITS | Referral Summary ---
Author Organization [facility] Address [address] [place] [address] Care Team Providers Care Gift Shop Assistant Name Role Phone Joseluis Rodriguez MD Primary Care Provider Encounters Date Type Department Care Team Description 04/07/2024 Telephone [facility] Rheumatology [address] [place] [address] [place] [address] Herlinda Chester MD from Last 3 Months Allergies No known active allergies Medications gabapentin (NEURONTIN) 600 mg tabletIndications:Lloyd ropathic Pain Take 1 tablet (600 mg total) by mouth 2 (two) times a day. 60 tablet 2 03/27/20 18 Active venlafaxine XR (EFFEXOR-XR) 150 mg 24 hr capsule Take 1 capsule (150 mg total) by mouth daily Active meloxicam (MOBIC) 15 mg tablet Take 1 tablet (15 mg total) by mouth daily Active atorvastatin (LIPITOR) 40 mg tablet Take 1 tablet (40 mg total) by mouth daily Active amLODIPine (NORVASC) 10 mg tablet Take 1 tablet (10 mg total) by mouth daily Active PROAIR HFA 90 mcg/actuation inhaler 18 Active chlordiazePOXIDE (LIBRIUM) 25 mg capsule 0 03/25/20 18 Active multivitamin tabletIndications:Vit bey Deficiency Prevention Active baclofen (LIORESAL) 10 mg tablet Take 1 tablet (10 mg total) by mouth 3 (three) times a day. 90 tablet 3 06/19/19 19 Active amitriptyline (ELAVIL) 25 mg tablet TAKE TWO TABLETS BY MOUTH NIGHTLY AT BEDTIME 60 tablet 2 07/29/19 20 Active Trelegy Ellipta 100-62.5-25 mcg inhaler 09/10/19 21 Active fluticasone propionate (FLONASE ALLERGY RELIEF NASL) as needed 0 20 Active famotidine (PEPCID) 20 mg tablet 07/27/19 20 Active hydrocortisone 1 % creamIndications:skin rash Apply 1 application topically 2 (two) times a day Use Q-tip to apply to rash on both ears. Avoid putting the Qtip into the ear canal. 30 g 3 07/27/19 22 Active sulfaSALAzine (AZULFIDINE) 500 mg tabletIndications:Pso riatic Arthritis Take 2 tablets (1,000 mg total) by mouth 2 (two) times a day Start by taking 1 tablet (500 mg) daily for 1 week, then increase to 1 tablet (500 mg) twice daily for 1 week, then increase to 2 tablets (1000 mg) in the morning and 1 tablet (500 mg) in the evening for 1 week, then increase to 2 tablets (1000 mg) twice daily thereafter 360 tablet 1 01/15/20 24 025 Active amoxicillin-clavulana te (AUGMENTIN) 875-125 mg per tablet 24 Active adalimumab (Humira,CF, Pen) 40 mg/0.4 mL pen injector kitIndications:Axial spondyloarthritis (HCC) Inject 0.4 mL (40 mg total) under the skin every 14 (fourteen) days 6 each 1 03/19/20 24 Active Active Problems Problem Noted Date Diagnosed Date Nicotine dependence, cigarettes, uncomplicated 0 01/17/2022 Pulmonary nodules 01/11/2022 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 Stress fracture of left ankle 07/22/2021 Neoplasm related pain 03/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 Left-sided chest wall pain 03/29/2018 Immunizations Name Administration Dates Next Due Influenza, Quadrivalent, Spl it, Intramuscular 03/05/2014 Influenza, Quadrivalent, Spl it, Preservative Free, Intramuscular 06/26/2023,01/27/2022,01/19/2021,02/13,02/08/2018,02/02/2017 Influenza, Trivalent, IM (MDV) 02/17/2015,2012,04/26/2012 Pneumococcal Conjugate PCV 13 03/03/2015 Pneumococcal Polysaccharide PPV23 08/17/2014 Tdap 06/26/2023,04/16/2013 ZOSTER Recombinant 05/19/2020,02/05/2020 Social History Tobacco Use Types Packs/Day Years Used Date Smoking Tobacco: Every Day Cigarettes 1 49.1 Started: 1975 Smokeless Tobacco: Never Tobacco Cessation:Ready to Q uit: Not Asked; Counseling Given: Not Answered Alcohol Use Standard Drinks/Week Comments No 0 (1 standard drink = 0.6 oz pur e alcohol) Comments No Sex and Gender Information Value Date Recorded Sex Assigned at Not on file 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 Gender Identity Female 09/01/2019 7:13 PM CDT Sexual Orientation Straight 09/01/2019 7: 13 PM CDT Last Filed Vital Signs Vital Sign Reading Time Taken Comments Blood Pressure 151/87 02/29/2024 8:44 AM CDT Pulse 80 02/29/2024 8:44 AM CDT Temperature 36.6 C (97.9 F) 02/29/2024 8:44 AM CDT Respiratory Rate 18 01/19/2023 10:23 AM CDT Oxygen Saturation 92% 01/18/2024 9:25 AM CDT Inhaled Oxygen Concentration - - Weight 108 kg (238 lb) 02/29/2024 8:44 AM CDT Height 162.6 cm (5' 4 ) 02/29/2024 8:44 AM CDT Body Mass Index 40.85 02/29/2024 8:44 AM CDT Plan of Treatment Not on file Procedures Procedure Name Priority Date/Time Associated Diagnosis Comments CT LUNG CANCER SCREENING Schedule DENNIS, Read DENNIS (Appt Today, Awaiting Results) 01/19/2023 9:11 AM CDT Pulmonary nodules HEPATITIS C ANTIBODY Routine 03/29/2021 10:38 AM CDT SAPHO syndrome (CMS/HCC) (HCC) from Last 3 Months or Most Recently Relevant to Health Maintenance Results * CT Lung Cancer Screening (01/19/2023 9:11 AM CDT) Anatomical Region Laterality Modality Chest N/A Computed Tomogra phy 01/19/2023 10:4 3 AM CDT Impressions 01/19/2023 10:43 AM CDT 1. LungRADS Category 2 (benign) . There has been minimal growth of right upper lobe nodule and more than 9 years and there is a new 3 millimeter left upper lobe nodule Recommend Low dose Screening CT of chest in 12 months. LungRADS Categories: 1 - Negative (no nodules, or only benign calcified or fat-containing nodules) 2 - Benign Appearance or Behavior (nodules with very low likelihood of becoming a clinically active cancer due to size or lack of growth) 3 - Probably Benign (probably benign findings-short term follow up suggested; includes nodules with a low likelihood of becoming a clinically active cancer) 4A,4B,4X - Suspicious (category 3 or 4 nodules with findings for which additional diagnostic testing and/or tissue sampling is recommended) S - Other (clinically significant or potentially clinically significant findings (non-lung cancer) C - Prior Lung Cancer (modifier for patients with a prior diagnosis of lung cancer who return to screening) Electronically signed by: Jose Bryant M.D. Narrative 01/19/2023 10:43 AM CDT EXAMINATION: Lung cancer screening CT of the Chest without intravenous contrast HISTORY: Lung Cancer Screening TECHNIQUE: Low radiation dose chest protocol. No intravenous contrast. Reconstructed slice width 1.[address] Dose Index 1.9 mGy. Dose-length product 68 mGy-cm. COMPARISON: 12/02/2021 FINDINGS: Lung nodules or findings of lung cancer: 5.6 mm average diameter right upper lobe nodule (-1572.4), without definite change from 5.2 mm on 12/02/2021 but questionably increased from 4.7 mm on 10/28/2020 and increased from 4.0 mm on 09/03/2013. New 3 mm left upper lobe nodule (-1535.3). Smoking related lung disease: None. Other findings: Coronary artery calcification. Calcified old granulomatous disease left lower lobe and left hilar and mediastinal lymph nodes. Healed left rib fractures. Procedure Note Jose Bryant MD - 01/19/2023 EXAMINATION: Lung cancer screening CT of the Chest without intravenous contrast HISTORY: Lung Cancer Screening TECHNIQUE: Low radiation dose chest protocol. No intravenous contrast. Reconstructed slice width 1.[address] Dose Index 1.9 mGy. Dose-length product 68 mGy-cm. COMPARISON: 12/02/2021 FINDINGS: Lung nodules or findings of lung cancer: 5.6 mm average diameter right upper lobe nodule (-1572.4), without definite change from 5.2 mm on 12/02/2021 but questionably increased from 4.7 mm on 10/28/2020 and increased from 4.0 mm on 09/03/2013. New 3 mm left upper lobe nodule (-1535.3). Smoking related lung disease: None. Other findings: Coronary artery calcification. Calcified old granulomatous disease left lower lobe and left hilar and mediastinal lymph nodes. Healed left rib fractures. IMPRESSION: 1. LungRADS Category 2 (benign) . There has been minimal growth of right upper lobe nodule and more than 9 years and there is a new 3 millimeter left upper lobe nodule Recommend Low dose Screening CT of chest in 12 months. LungRADS Categories: 1 - Negative (no nodules, or only benign calcified or fat-containing nodules) 2 - Benign Appearance or Behavior (nodules with very low likelihood of becoming a clinically active cancer due to size or lack of growth) 3 - Probably Benign (probably benign findings-short term follow up suggested; includes nodules with a low likelihood of becoming a clinically active cancer) 4A,4B,4X - Suspicious (category 3 or 4 nodules with findings for which additional diagnostic testing and/or tissue sampling is recommended) S - Other (clinically significant or potentially clinically significant findings (non-lung cancer) C - Prior Lung Cancer (modifier for patients with a prior diagnosis of lung cancer who return to screening) Electronically signed by: Jose Bryant M.D. Alisha Velasquez NP [facility] CT PROCEDURES Final Result * Hepatitis C antibody (03/29/2021 10:38 AM CDT) Hep C Ab Nonreactive Nonreactive [facility] Comment:Antibodies to HCV no t detected. Does NOT exclude the possibility of recent exposure to HCV. Blood 03/29/2021 10:3 8 AM CDT 03/29/2021 1:00 PM CDT Richar Marie DO LAB MICROBIOLOGY - GENER AL ORDERABLES Edited Result - Final [facility] Department [place] [address] from Last 3 Months or Most Recently Relevant to Health Maintenance Insurance CIGNA CIGNA CIGNA OPEN ACCESS MEDICARE [facility] MEDICARE Care Teams Gift Shop Assistant Relationship Specialty Start Date End Date Joseluis Rodriguez MD [address] [place] [address] [facility] - General 08/08/17
--- OUTSIDE RECORDS SUMMARY | 2024-07-04 09:38 | XMS_ITS | Clinical Summary ---
Author Organization [facility] Address [address] [place] [address] Care Team Providers Care Supervisor Mending Name Role Phone Joseluis Rodriguez MD Primary Care Provider Allergies No known active allergies Medications gabapentin [...] neuralgia 03/29/2018 Left-sided chest wall pain 03/29/2018 Encounters Date Type Department Care Team Description 04/07/2024 Telephone [facility] Rheumatology [address] [place] [address] [place] [address] Herlinda Chester MD from Last 3 Months Immunizations Name Administration Dates Next Due Influenza, Quadrivalent, Spl it, Intramuscular 03/05/2014 Influenza, Quadrivalent, Spl it, Preservative Free, Intramuscular 06/26/2023,01/27/2022,01/19/2021,02/13,02/08/2018,02/02/2017 Influenza, Trivalent, IM (MDV) 02/17/2015,2012,04/26/2012 Pneumococcal Conjugate PCV 13 03/03/2015 Pneumococcal Polysaccharide PPV23 08/17/2014 Tdap 06/26/2023,04/16/2013 ZOSTER Recombinant 05/19/2020,02/05/2020 Surgical History Surgery Date Site/Laterality Comments BIOPSY ABDOMEN RETROPERITONEAL 01/17/2013 N/A BIOPSY DEEP BONE 01/02/2013 N/A CORTICOSTEROIDS INJECTION Corticosteroids Injection - (Added by TW Conv) Medical History Medical History Date Comments Chest pain Chronic pain Knee pain Family History Medical History Relation Name Comments Cancer Father Family history of malignant neoplasm - (Added by TW Conv) Hypertension Father Family history of hypertension - (Added by TW Conv) Arthritis Mother Family history of arthritis - (Added by TW Conv) Hypertension Mother Family history of hypertension - (Added by TW Conv) Coronary artery disease Other 1 Fami ly history of coronary artery disease - (Added by TW Conv) Diabetes Other 2 Family history of diabetes mellitus - (Added by TW Conv) Cancer Other 3 Family history of malignant neoplasm - (Added by TW Conv) Hypertension Other 4 Family history of hypertension - (Added by TW Conv) Relation Name Status Comments Father Mother Other 1 Other 2 Other 3 Other 4 Social History Tobacco Use Types Packs/Day Years [...] on file 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 Gender Identity Female 09/01/2019 7:13 PM CDT Sexual Orientation Straight 09/01/2019 7: 13 PM CDT Obstetrics History Last Filed Vital Signs Vital Sign Reading [...] 02/29/2024 8:44 AM CDT Plan of Treatment Health Maintenance Due Date Last Done Comments Breast Cancer Screening-Mammogram 1960 Cervical Cancer Screening 1960 Colon Cancer Screening-Colonoscopy 1960 Depression Screening 1960 Hepatitis B Screening 1978 Regular Well Visit/Exam 18-64 1978 Covid-19 Vaccine (4 - 2023-2 5 season) 2024 04/19/2021, 08/24/2020, 08/03/2020 Influenza Vaccine (#1) 2024 , 01/27/2022, 01/19/2021, Additional history exists Lung Cancer Screening 01/18/2025 01/19/2023 Pneumococcal vaccine <65 (3 of 3 - PPSV23 or PCV20) 2025 03/03/2015, 08/17/2014 DTaP/Tdap/Td Vaccine (3 - Td or Tdap) 06/26/2033 06/26/2023, 04/16/2013 Zoster Vaccine Completed 05/19/2020, 02/05/2020 Hepatitis C Screening Completed 03/29/2021 Procedures Procedure Name Priority Date/Time Associated Diagnosis [...] signed by: Jose Bryant M.D. Alisha Velasquez CODING SPECIALIST IMG CT PROCEDURES Final Result * Hepatitis C antibody (03/29/2021 10:38 AM CDT) Hep C Ab Nonreactive Nonreactive [facility] Comment:Antibodies to HCV no t detected. Does NOT exclude the possibility of recent exposure to HCV. Blood 03/29/2021 10:3 8 AM CDT 03/29/2021 1:00 PM CDT Richar Marie DO LAB MICROBIOLOGY - GENER AL ORDERABLES Edited Result - Final [facility] [place] [address] from Last 3 Months or Most Recently Relevant to Health Maintenance Insurance CIGNA CIGNA CIGNA OPEN ACCESS MEDICARE [facility] Care Teams Supervisor Mending Relationship Specialty Start Date End Date Joseluis Rodriguez MD [address] [place] [address] PCP - General 08/08/17
[2024-07-04 09:50] LABS: Alanine Aminotransferase 104 U/L (14-59); Albumin Level 3.1 g/dL (3.4-5.0); Alkaline Phosphatase 110 U/L (46-116); Anion Gap 11 mmol/L (4-12); Aspartate Amino Transferase 65 U/L (15-37); Bilirubin,Total 0.6 mg/dL (0.00-1.00); Blood Urea Nitrogen 4 mg/dL (7-18); Carbon Dioxide 27 mmol/L (21-32); Chloride 103 mmol/L (98-108); Estimated Glomerular Filt Rate > 60; Glucose 123 mg/dL (70-99); Osmolality Calculated 289 mOsm/kg (285-295); Potassium 2.7 mmol/L (3.5-5.1); Sodium 141 mmol/L (136-145)
[2024-07-04 10:00] LABS: Strep Group A RT-PCR NOT DETECTED (Negative)
[2024-07-04 10:10] LABS: Influenza A QL RT-PCR Positive (Negative); Influenza B QL RT-PCR Negative (Negative); RSV RNA, RT-PCR Negative (Negative); SARS-CoV-2 RNA PCR Negative (Negative)
[2024-07-04 12:59] LABS: Magnesium 1.5 mg/dL (1.8-2.4)
[2024-07-04 18:27] LABS: Toxigenic C. Diff NEGATIVE (NEGATIVE)
[2024-07-08 00:28] LABS: Norovirus RNA PCR, Stool NOT DETECTED
== END 2024-07-04 09:13 | disposition home or self-care (01) ==
PROVIDERS: PCP Internal Medicine; Visit Provider Internal Medicine
DX: J44.1 Chronic obstructive pulmonary disease with (acute) exacerbation (principal); R19.7 Diarrhea, unspecified
CPT/HCPCS: 36415; 71046; 80053; 83735; 85025; 87493; 87637; 87651; 87798

== ENCOUNTER 2024-08-04 12:07 | Outpatient (CLI) | payer OTHER, SELFPAY ==
[2024-08-04 12:34] LABS: Basophils Absolute Auto 0.04 K/mm3 (0.00-0.10); Basophils Percent Auto 0.4 % (0.0-1.0); Eosinophils Absolute Auto 0.03 K/mm3 (0.02-0.50); Eosinophils Percent Auto 0.3 % (1.0-6.0); Hematocrit 41.4 % (35.0-49.0); Hemoglobin 14.3 g/dL (12.0-15.0); Immature Granulocyte Absolute 0.03 K/mm3 (0.00-0.00); Immature Granulocyte Percent A 0.3 % (0.0-0.0); Lymphocytes Absolute Auto 1.61 K/mm3 (1.10-4.50); Lymphocytes Percent Auto 18.1 % (18.0-42.0); Mean Corpuscular HGB Conc 34.5 g/dL (32-36); Mean Corpuscular Hemoglobin 30.7 pg (27.0-31.0); Mean Corpuscular Volume 88.8 fL (78.0-102.0); Mean Platelet Volume 8.9 fl (9.2-11.8); Monocytes Absolute Auto 0.67 K/mm3 (0.10-0.90); Monocytes Percent Auto 7.5 % (2.0-11.0); Neutrophils Absolute Auto 6.53 K/mm3 (1.70-7.20); Neutrophils Percent Auto 73.4 % (50.0-70.0); Platelet Count Result 422 K/mm3 (150-420); Red Blood Count 4.66 M/mm3 (4.20-5.40); Red Cell Distribution Width 15.3 % (11.6-14.4); White Blood Count 8.9 K/mm3 (4.8-10.8)
[2024-08-04 13:38] LABS: Alanine Aminotransferase 46 U/L (14-59); Albumin Level 3.4 g/dL (3.4-5.0); Alkaline Phosphatase 136 U/L (46-116); Anion Gap 13 mmol/L (4-12); Aspartate Amino Transferase 25 U/L (15-37); Bilirubin,Total 0.4 mg/dL (0.00-1.00); Blood Urea Nitrogen 3 mg/dL (7-18); CRP 2.7 mg/dL (0.0-0.9); Calcium 9.6 mg/dL (8.5-10.1); Carbon Dioxide 26 mmol/L (21-32); Chloride 104 mmol/L (98-108); Estimated Glomerular Filt Rate > 60; Glucose 107 mg/dL (70-99); Osmolality Calculated 292 mOsm/kg (285-295); Potassium 3.1 mmol/L (3.5-5.1); Sodium 143 mmol/L (136-145); Total Protein 7.3 g/dL (6.4-8.2)
[2024-08-04 13:39] LABS: Erythrocyte Sedimentation Rate 55 mm/hr (0-20)
--- OUTSIDE RECORDS SUMMARY | 2024-08-04 14:05 | XMS_ITS | Referral Summary ---
Author Organization [facility] Address [address] [place] [address] Care Team Providers Care Marine Extension Agent Name Role Phone Joseluis Rodriguez MD Primary Care Provider Encounters Date Type Department Care Team Description 07/08/2024 Orders Only [facility] Rheumatology [address] [facility] 5th [place] [address] [place] [address] Herlinda Chester MD High risk medication use (Primary Dx); Elevated LFTs from Last 3 Months Allergies No known active allergies Medications gabapentin (NEURONTIN) 600 mg tabletIndications:Ne uropathic Pain Take 1 tablet (600 mg total) [...] daily Active PROAIR HFA 90 mcg/actuation inhaler 03/18/20 18 Active chlordiazePOXIDE (LIBRIUM) 25 mg capsule 0 03/25/20 18 Active multivitamin tabletIndications:Vi tamin Deficiency Prevention Active baclofen (LIORESAL) 10 mg [...] tablet 07/27/19 20 Active hydrocortisone 1 % creamIndications:ski n rash Apply 1 application topically 2 (two) times a day Use Q-tip to apply to rash on both ears. Avoid putting the Qtip into the ear canal. 30 g 3 07/27/19 22 Active amoxicillin-clavulan ate (AUGMENTIN) 875-125 mg per tablet 01/17/20 24 Active adalimumab (Humira,CF, Pen) 40 mg/0.4 mL pen injector kitIndications:Axial spondyloarthritis Inject 0.4 mL (40 mg total) under the skin every 14 (fourteen) days 6 each 1 03/19/20 24 Active sulfaSALAzine (AZULFIDINE) 500 mg tabletIndications:Ps oriatic Arthritis Take 2 tablets (1,000 mg total) by mouth 2 (two) times a day for 14 days 56 tablet 07/10/19 25 Active sulfaSALAzine (AZULFIDINE) 500 mg tabletIndications:Ps oriatic Arthritis Take 2 tablets (1,000 mg total) [...] thereafter 360 tablet 1 01/15/20 24 025 Disconti nued(Reo rder) Active Problems Problem Noted Date Diagnosed Date Nicotine dependence, cigarettes, uncomplicated 0 01/17/2022 Pulmonary nodules 01/11/2022 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 Stress fracture of left ankle 07/22/2021 Neoplasm related pain 03/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 Left-sided chest wall pain 03/29/2018 Immunizations Immunization Administration Dates Next Due Influenza, Quadrivalent, Spl it, Intramuscular 03/05/2014 Influenza, Quadrivalent, Spl it, Preservative Free, Intramuscular 06/26/2023,01/27/2022,01/19/2021,02/13,02/08/2018,02/02/2017 Influenza, Trivalent, IM (MDV) 02/17/2015,2012,04/26/2012 Pneumococcal Conjugate PCV 13 03/03/2015 Pneumococcal Polysaccharide PPV23 08/17/2014 Tdap 06/26/2023,04/16/2013 ZOSTER Recombinant 05/19/2020,02/05/2020 Social History Tobacco Use Types Packs/Day Years Used Date Smoking Tobacco: Every Day Cigarettes 1 49.2 Started: 1975 Smokeless Tobacco: Never Tobacco Cessation:Ready to Q uit: Not Asked; Counseling Given: Not Answered Alcohol Use Standard Drinks/Week Comments No 0 (1 standard drink = 0.6 oz pur e alcohol) Comments No Sex and Gender Information Value Date Recorded Sex Assigned at Not on file Legal 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 Gender Identity Female 09/01/2019 7:13 PM CDT [...] Procedure Name Priority Date/Time Associated Diagnosis Comments COMPREHENSIVE METABOLIC PANEL Routine 07/04/2024 Psoriatic arthritis (HCC) High risk medication use CBC WITH AUTO DIFFERENTIAL Routine 07/04/2024 Psoriatic arthritis (HCC) High risk medication use CT LUNG CANCER SCREENING Schedule DENNIS, Read DENNIS (Appt Today, Awaiting Results) 01/19/2023 9:11 AM CDT Pulmonary nodules HEPATITIS C ANTIBODY Routine 03/29/2021 10:38 AM CDT SAPHO syndrome (HCC) from Last 3 Months or Most Recently Relevant to Health Maintenance Results * CBC with auto differential (07/04/2024) SCRIBED WBC 7.1 4.8 - 10.8 k/cumm EXTERNAL LAB SCRIBED Hemoglobin 14.3 12.0 - 15.0 g/dL EXTERNAL LAB SCRIBED Platelets 263 150 - 420 k/cumm EXTERNAL LAB Blood 07/04/2024 Herlinda Chester MD LAB BLOOD ORDERABLES F inal Result EXTERNAL LAB * (ABNORMAL) Comprehensive metabolic panel (07/04/2024) SCRIBED Creatinine 0.90 0.55 - 1.02 mg/dl EXTERNAL LAB SCRIBED Plasma Protein 8.0 6.4 - 8.2 g/dl EXTERNAL LAB SCRIBED Alkaline Phosphatase 110 46 - 116 Units/L EXTERNAL LAB SCRIBED Alanine Transaminase (ALT) 104(A) 14 - 59 Units/L EXTERNAL LAB SCRIBED Aspartate Transaminase (AST) 65(A) 15 - 37 Units/L EXTERNAL LAB Blood 07/04/2024 Herlinda Chester MD LAB BLOOD ORDERABLES F inal Result EXTERNAL LAB * CT Lung Cancer Screening (01/19/2023 9:11 [...] signed by: Jose Bryant M.D. Alisha Velasquez HEALTH INSPECTOR IMG CT PROCEDURES Final Result * Hepatitis C antibody (03/29/2021 10:38 AM CDT) Hep C Ab Nonreactive Nonreactive PATI [facility] Comment:Antibodies to HCV no t detected. Does NOT exclude the possibility of recent exposure to HCV. Blood 03/29/2021 10:3 8 AM CDT 03/29/2021 1:00 PM CDT Richar Marie DO LAB MICROBIOLOGY - GENER AL ORDERABLES Edited Result - Final [facility] [place] [address] from Last 3 Months or Most Recently Relevant to Health Maintenance Insurance CIGNA CIGNA CIGNA OPEN ACCESS MEDICARE [facility] MEDICARE Care Teams Marine Extension Agent Relationship Specialty Start Date End Date Joseluis Rodriguez MD [address] [place] [address] PCP - General 08/08/17
--- OUTSIDE RECORDS SUMMARY | 2024-08-04 14:05 | XMS_ITS | Encounter Summary ---
Author Organization [facility] Address [address] [place] [address] Phone Care Team Providers Care Dragline Operator Name Role Phone Joseluis Rodriguez MD Primary Care Provider [phone] Encounter Details Date Type Department Care Team ([facility] Contact Info) Description 06/07/2023 Orders Only [facility] Scanning, Provider Social History Tobacco Use Types Packs/Day Years Used Date Smoking Tobacco: Every Day Cigarettes 1 49.2 Started: 1975 Smokeless Tobacco: Never Alcohol Use Standard Drinks/Week Comments No 0 (1 standard drink = 0.6 oz pur e alcohol) Comments No Sex and Gender Information Value Date Recorded Sex Assigned at Not on file 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
--- OUTSIDE RECORDS SUMMARY | 2024-08-04 14:05 | XMS_ITS | Encounter Summary ---
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
--- OUTSIDE RECORDS SUMMARY | 2024-08-04 14:05 | XMS_ITS | CONTINUITY OF CARE DOCUMENT ---
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 One tab. daily Orders: C omplete Echo ([id number]) S TR - Adenosine ([id number]) Aissatou Wu MD printed 09/04/14 1355 : O rders: C omplete Echo ([id number]) S TR - Adenosine ([id number]) Aissatou Wu MD printed 09/04/14 1355 : H er updated medication list for this problem includes: Amlodipine Besylate 10 Mg Oral Tabs (Amlodipine besylate) ..... 1 tablet daily Orders: C omplete Echo ([id number]) S TR - Adenosine ([id number]) Aissatou Wu MD printed 09/04/14 1355 : H er updated medication list for this problem includes: Amlodipine Besylate 10 Mg Oral Tabs (Amlodipine besylate) ..... 1 tablet daily Orders: C omplete Echo ([id number]) S TR - Adenosine ([id number]) Aissatou Wu MD Date Name STR - Adenosine Complete Echo
--- OUTSIDE RECORDS SUMMARY | 2024-08-04 14:05 | XMS_ITS | Clinical Summary ---
Author Organization 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 5th [place] [address] [place] [address] Herlinda Chester MD High risk medication use (Primary Dx); Elevated LFTs from Last 3 Months Immunizations Immunization Administration Dates Next Due Influenza, [...] on file Legal Sex Female 10:29 AM LIST OF FIRST JOB IDE[employer] Gender Identity Female 09/01/2019 7:13 PM CDT [...] Screening 1978 Regular Well Visit/Exam 18-64 1978 Pneumococcal vaccine <65 (3 of 3 - PCV20 or PCV21) 03/03/2020 03/03/2015, 08/17/2014 Covid-19 Vaccine (4 - 2023-2 5 season) 2024 04/19/2021, 08/24/2020, 08/03/2020 Influenza Vaccine (#1) 2024 , 01/27/2022, 01/19/2021, Additional history exists Lung Cancer Screening 01/18/2025 01/19/2023 DTaP/Tdap/Td Vaccine (3 - Td or Tdap) [...] signed by: Jose Bryant M.D. Alisha Velasquez CAGE MANAGER IMG CT PROCEDURES Final Result * Hepatitis C antibody (03/29/2021 10:38 AM CDT) Hep C Ab Nonreactive Nonreactive [facility] Comment:Antibodies to HCV no t detected. Does NOT exclude the possibility of recent exposure to HCV. Blood 03/29/2021 10:3 8 AM CDT 03/29/2021 1:00 PM CDT Richar Marie DO LAB MICROBIOLOGY - GENER AL ORDERABLES Edited Result - Final PATI [facility] Department of Laboratories [place], [place] [id number] from Last 3 Months or Most Recently Relevant to Health Maintenance Insurance CIGNA [facility] CIGNA OPEN ACCESS MEDICARE [facility] MEDICARE Care Teams Municipal Services Manager Relationship Specialty Start Date End Date Joseluis Rodriguez MD [address] [place] [address] PCP - General 08/08/17
[2024-08-05 12:03] LABS: Hepatitis B Core Ab Total NON-REACTIVE (NON-REACTIVE)
[2024-08-06 02:14] LABS: Hepatitis B Surface Antigen NON-REACTIVE (NON-REACTIVE)
[2024-08-06 03:53] LABS: Hepatitis B Surface Antibody NON-REACTIVE (NON-REACTIVE); Hepatitis C Virus Antibody NON-REACTIVE (NON-REACTIVE)
[2024-08-06 15:14] LABS: NIL 0.02 IU/mL; Quantiferon TB Plus, 1T NEGATIVE (NEGATIVE)
== END 2024-08-04 12:08 | disposition home or self-care (01) ==
LOC: CHSLAB 12:13
PROVIDERS: PCP Internal Medicine
DX: R79.89 Other specified abnormal findings of blood chemistry (principal); Z79.899 Other long term (current) drug therapy
CPT/HCPCS: 36415; 80053; 85025; 85652; 86140; 86480; 86704; 86706; 86803; 87340

== ENCOUNTER 2024-08-15 00:02 | Day surgery (SDC) | payer OTHER, SELFPAY ==
[2024-08-14 09:58] VITALS: BMI 40.4
--- OUTSIDE RECORDS SUMMARY | 2024-08-15 00:05 | XMS_ITS | CONTINUITY OF CARE DOCUMENT ---
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 One tab. daily Orders: C omplete Echo ([id number]) S TR - Adenosine ([id number]) Aissatou Wu MD printed 09/04/14 1355 : O rders: C omplete Echo ([id number]) S TR - Adenosine ([id number]) Aissatou Wu MD printed 09/04/14 1355 : H er updated medication list for this problem includes: Amlodipine Besylate 10 Mg Oral Tabs (Amlodipine besylate) ..... 1 tablet daily Orders: C omplete Echo ([id number]) S TR - Adenosine ([id number]) Aissatou Wu MD printed 09/04/14 1355 : H er updated medication list for this problem includes: Amlodipine Besylate 10 Mg Oral Tabs (Amlodipine besylate) ..... 1 tablet daily Orders: C omplete Echo ([id number]) S TR - Adenosine ([id number]) Aissatou Wu MD Date Name STR - Adenosine Complete Echo
--- OUTSIDE RECORDS SUMMARY | 2024-08-15 00:05 | XMS_ITS | Encounter Summary ---
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
--- OUTSIDE RECORDS SUMMARY | 2024-08-15 00:05 | XMS_ITS | Referral Summary ---
Author Organization [facility] Address [address] [place] [address] Care Team Providers Care Dehydrogenation Supervisor Name Role Phone Joseluis Rodriguez MD Primary Care Provider [phone] Encounters Date Type Department Care Team Description 07/08/2024 Orders Only [facility] Rheumatology [address] [facility] 5th [place] [address] [place] [address] Herlinda Chester MD High risk [...] canal. 30 g 3 07/27/19 22 Active amoxicillin-clavulana te (AUGMENTIN) 875-125 mg per tablet 24 Active adalimumab (Humira,CF, Pen) 40 mg/0.4 mL pen injector kitIndications:Axial spondyloarthritis Inject 0.4 mL (40 mg total) under the skin every 14 (fourteen) days 6 each 1 03/19/20 24 Active sulfaSALAzine (AZULFIDINE) 500 mg tabletIndications:Pso riatic Arthritis Take 2 tablets (1,000 mg total) by mouth 2 (two) times a day for 14 days 56 tablet 07/10/19 25 Active Active Problems Problem Noted Date Diagnosed [...] on file Legal Sex Female 10:29 AM CAR KNOCKER Gender Identity Female 09/01/2019 7:13 PM CDT [...] - 420 k/cumm EXTERNAL LAB Blood 07/04/2024 us Herlinda Chester MD LAB BLOOD ORDERABLES F [...] MD LAB BLOOD ORDERABLES F inal Result Performing Organization Address [facility] de Phone Number EXTERNAL LAB * CT Lung Cancer Screening [...] signed by: Jose Bryant M.D. Alisha Velasquez PIPELINE CONSTRUCTION INSPECTOR IMG CT PROCEDURES Final Result * Hepatitis C antibody (03/29/2021 10:38 AM CDT) Hep C Ab Nonreactive Nonreactive [facility] Comment:Antibodies to HCV no t detected. Does NOT exclude the possibility of recent exposure to HCV. Blood 03/29/2021 10:3 8 AM CDT 03/29/2021 1:00 PM CDT Richar Marie DO LAB MICROBIOLOGY - GENER AL ORDERABLES Edited Result - Final PATI [facility] Department [place] [address] from Last 3 Months or Most Recently Relevant to Health Maintenance Insurance [facility] CIGNA CIGNA OPEN ACCESS MEDICARE CIGNA MEDICARE Care Teams Dehydrogenation Supervisor Relationship Specialty Start Date End Date Joseluis Rodriguez MD [address] [place] [address] PCP - General 08/08/17
--- OUTSIDE RECORDS SUMMARY | 2024-08-15 00:05 | XMS_ITS | Encounter Summary ---
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
--- OUTSIDE RECORDS SUMMARY | 2024-08-15 00:05 | XMS_ITS | Clinical Summary ---
Author Organization [facility] Address [address] [place] [address] Care Team Providers Care Forming Operator Name Role Phone Joseluis Rodriguez MD [...] Department Care Team Description 07/08/2024 Orders Only [facility] Rheumatology [address] [facility] Medicine 5th [place] [address] [place] [address] Herlinda Chester MD High risk medication use [...] CORTICOSTEROIDS INJECTION Corticosteroids Injection - (Added by Conv) Medical History Medical History Date Comments [...] of coronary artery disease - (Added by Conv) Diabetes Other 2 Family history of diabetes mellitus - (Added by TW Conv) Cancer Other 3 Family history of malignant neoplasm - (Added by Conv) Hypertension Other 4 Family history of hypertension - (Added by Conv) Relation Name Status Comments Father Mother [...] on file Legal Sex Female 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 Alisha Velasquez TRAILER DRIVER IMG CT PROCEDURES Final Result * Hepatitis C antibody (03/29/2021 10:38 AM CDT) Hep C Ab Nonreactive Nonreactive PATI [facility] Comment:Antibodies to HCV no t detected. Does NOT exclude the possibility of recent exposure to HCV. Blood 03/29/2021 10:3 8 AM CDT 03/29/2021 1:00 PM CDT Richar Marie DO LAB MICROBIOLOGY - GENER AL ORDERABLES Edited Result - Final [facility] Department [place] [address] from Last 3 Months or Most Recently Relevant to Health Maintenance Insurance [employer] CIGNA CIGNA OPEN ACCESS MEDICARE CIGNA [facility] HMO/PPO Address: [facility] [id number] [place] [address] MEDICARE Care Teams Forming Operator Relationship Specialty Start Date End Date Joseluis Rodriguez MD [address] [place], [place] [id number] PCP - General 08/08/17
[2024-08-15 11:12] VITALS: BP 140/74; PULSE 94; RESP 18; TEMP 36.1; O2SAT 97
[2024-08-15] MEDS: LACTATED RINGERS 1,000 ML 150 ML IV CONT (11:23)
--- NOTE | 2024-08-15 11:38 | WPDANESEPPF ---
Anes - Initial Pre Proc Eval Procedure: Operation Date: 08/15/24 12:30 Proposed Procedures p Colonoscopy - Herberth Jarquin MD Date/Time: 08/15/24 11:38 Surgeon: Herberth Jarquin MD Pre Op Diagnosis: Abnormal findings on diagnostic imaging of other p Patient Data Age: 64 Gender: F Height: 1.63 m Weight: 104 kg Last Vital Signs Temp 36.1 C L 08/15/24 11:12 Pulse 94 08/15/24 11:12 Resp 18 08/15/24 11:12 BP 140/74 08/15/24 11:12 Pulse Ox 97 08/15/24 11:12 O2 Del Method Room Air 08/15/24 11:12 Allergies Allergy/AdvReac Type Severity Reaction Status Date / Time No Known Allergies Allergy Verified 08/15/24 11:11 Home Medications ?Medication ?Instructions ?Recorded ?Confirmed ?Type amitriptyline 25 mg tablet 25 mg PO DAILY 12/08/20 08/15/24 History amlodipine 10 mg tablet 10 mg PO DAILY 12/08/20 08/15/24 History atorvastatin 40 mg tablet 40 mg PO DAILY 12/08/20 08/15/24 History baclofen 10 mg tablet 10 mg PO DAILY 12/08/20 08/15/24 History chlordiazepoxide HCl 25 mg capsule 25 mg PO DAILY 12/08/20 08/15/24 History fluticasone fur. 100 mcg-umeclid 1 inh inhalation DAILY 12/08/20 08/15/24 History 62.5 mcg-vilant 25 mcg inhalat.powder (Trelegy Ellipta) fluticasone propionate 50 1 spray intranasal PRN PRN Allergy 12/08/20 08/14/24 History mcg/actuation nasal Symptoms spray,suspension gabapentin 600 mg tablet 600 mg PO DAILY 12/08/20 08/15/24 History meloxicam 15 mg tablet 15 mg PO DAILY 12/08/20 08/15/24 History omeprazole 20 mg delayed 20 mg PO DAILY 12/08/20 08/15/24 History release,disintegrating tablet venlafaxine 150 mg 150 mg PO DAILY 12/08/20 08/15/24 History capsule,extended release 24 hr adalimumab 10 mg/0.1 mL See Rx Instructions subcut .COMPLEX 10/31/21 08/14/24 History subcutaneous syringe kit (Humira(CF)) omega 2-wwg-egq-fish oil 1,000 mg 1 cap PO DAILY 06/07/23 08/14/24 History (120 mg-180 mg) capsule (Fish Oil) colestipol 1 gram tablet 1 g PO .twice per day PRN diarrhea 08/12/24 08/14/24 Rx #60 tabs lygmki-bqcxxdei-whdupni 1 cap PO TID 08/12/24 08/15/24 History 4,000-25,000-20,000 unit capsule,delayed rel metronidazole 500 mg tablet 500 mg PO Q8H 10 days #30 tabs 08/12/24 08/14/24 Rx multivitamin (One-A-Day Essential 1 tablet PO DAILY 08/12/24 08/14/24 History tablet) Patient hx anesthesia problems: post op nausea/vomiting Family hx anesthesia problems: none Results Review: All pre-operative results and documents have been reviewed as part of the pre-operative evaluation. [facility] Past Medical History Medical History COPD (chronic obstructive pulmonary disease) Anxiety HTN (hypertension) Obesity Social History Social History Smoking packs per day: 2 Smoking cigarettes per day: 40.0 Years smoked: 45 Smoking pack-years: 90.00 Smoking status: Current every day smoker Tobacco type: cigarettes Alcohol intake: former Alcohol use details: rarely Substance use: never Substance use type: does not use Do You Feel Safe in your Home?: Yes Lack of Transportation: No Lack of Food: Never True Current Housing: I Have Housing Concerned About Future Housing: No Difficulty Paying Gas/Electric Bills: No Difficulty Paying for Meds: No Currently Unemployed: No Education: High School Diploma/GED Difficulty w/ Childcare or Family Care: No Living arrangements: alone Gender identity (if verbalized by the patient): Female Spiritual care concerns: No Anes - Eval Final PreProcedure Day of Procedure 08/15/24 11:38 Patient weight: obese Heart: regular rate and rhythm Lungs: decreased breath sounds Airway: Mallampati scale class II Neurological: alert and oriented Last oral intake: >/= 8 hours ASA classification: III Emergent: no Anesthetic plan: proceed Anesthesia type and monitoring: general GIVS and standard monitoring Results Review: All pre-operative results and documents have been reviewed as part of the pre-operative evaluation. Informed Consent: The patient's anesthetic plan and its attendant risks and benefits were discussed with the patient/family/POA. Questions were solicited and answers provided to the satisfaction of the patient/family/POA.
[2024-08-15 12:08] VITALS: BP 125/65; PULSE 88; RESP 20; O2SAT 95
--- NOTE | 2024-08-15 12:10 | PM.IMHP ---
H&P: HPI History of Present Illness Date/Time: 08/15/24 12:10 Chief Complaint: Chronic diarrhea Narrative: the patient has had colonoscopy in 2021 showing small polyps but no evidence of inflammatory bowel disease. However, she has been lately experiencing frequent diarrheal episodes and a CT scan showed left-sided colitis. She is referred for colonoscopy. Review of Systems Review of Systems: All systems reviewed & are unremarkable except as noted in HPI and below PMFSH Past Medical History Medical History COPD (chronic obstructive pulmonary disease) Anxiety HTN (hypertension) Obesity Social History Social History Smoking packs per day: 2 Smoking cigarettes per day: 40.0 Years smoked: 45 Smoking pack-years: 90.00 Smoking status: Current every day smoker Tobacco type: cigarettes Alcohol intake: former Alcohol use details: rarely Substance use: never Substance use type: does not use Do You Feel Safe in your Home?: Yes Lack of Transportation: No Lack of Food: Never True Current Housing: I Have Housing Concerned About Future Housing: No Difficulty Paying Gas/Electric Bills: No Difficulty Paying for Meds: No Currently Unemployed: No Education: High School Diploma/GED Difficulty w/ Childcare or Family Care: No Living arrangements: alone Gender identity (if verbalized by the patient): Female Spiritual care concerns: No Meds Home Medications and Allergies Home Medications ?Medication ?Instructions ?Recorded ?Confirmed ?Type amitriptyline 25 mg tablet 25 mg PO DAILY 12/08/20 08/15/24 History amlodipine 10 mg tablet 10 mg PO DAILY 12/08/20 08/15/24 History atorvastatin 40 mg tablet 40 mg PO DAILY 12/08/20 08/15/24 History baclofen 10 mg tablet 10 mg PO DAILY 12/08/20 08/15/24 History chlordiazepoxide HCl 25 mg capsule 25 mg PO DAILY 12/08/20 08/15/24 History fluticasone fur. 100 mcg-umeclid 1 inh inhalation DAILY 12/08/20 08/15/24 History 62.5 mcg-vilant 25 mcg inhalat.powder (Trelegy Ellipta) fluticasone propionate 50 1 spray intranasal PRN PRN Allergy 12/08/20 08/14/24 History mcg/actuation nasal Symptoms spray,suspension gabapentin 600 mg tablet 600 mg PO DAILY 12/08/20 08/15/24 History meloxicam 15 mg tablet 15 mg PO DAILY 12/08/20 08/15/24 History omeprazole 20 mg delayed 20 mg PO DAILY 12/08/20 08/15/24 History release,disintegrating tablet venlafaxine 150 mg 150 mg PO DAILY 12/08/20 08/15/24 History capsule,extended release 24 hr adalimumab 10 mg/0.1 mL See Rx Instructions subcut .COMPLEX 10/31/21 08/14/24 History subcutaneous syringe kit (Humira(CF)) omega 5-rhf-cuz-fish oil 1,000 mg 1 cap PO DAILY 06/07/23 08/14/24 History (120 mg-180 mg) capsule (Fish Oil) colestipol 1 gram tablet 1 g PO .twice per day PRN diarrhea 08/12/24 08/14/24 Rx #60 tabs ksylgt-jpwlkvgr-mhwzxlj 1 cap PO TID 08/12/24 08/15/24 History 4,000-25,000-20,000 unit capsule,delayed rel metronidazole 500 mg tablet 500 mg PO Q8H 10 days #30 tabs 08/12/24 08/14/24 Rx multivitamin (One-A-Day Essential 1 tablet PO DAILY 08/12/24 08/14/24 History tablet) Allergies Allergy/AdvReac Type Severity Reaction Status Date / Time No Known Allergies Allergy Verified 08/15/24 11:11 Vital Signs Vital Signs - 24 hr 08/15/24 11:12 Temperature 97 F L Pulse Rate 94 Respiratory Rate 18 Blood Pressure 140/74 Pulse Oximetry 97 Oxygen Delivery Room Air Exam Const: General: cooperative and healthy appearing Resp: Effort & Inspection: normal respiratory effort and able to speak in complete sentences Auscultation: clear to auscultation bilaterally Cardio: Rate: regular rate Rhythm: regular rhythm GI: Inspection: normal to inspection GI Palp: No No hepatosplenomegaly present Auscultation: normal bowel sounds Rectal Exam: deferred Skin: General skin exam: normal color Psych: Appearance: grossly normal Mental Status: mental status grossly normal Assessment and Plan Assessment and plan (1) Abnormal CT scan, colon: Code(s): R93.3 - Abnormal findings on diagnostic imaging of other parts of digestive tract Status: Acute Assessment and Plan: The patient is deemed a good candidate for the procedure. Consent signed. Will proceed. (2) Chronic diarrhea: Code(s): K52.9 - Noninfective gastroenteritis and colitis, unspecified Status: Acute
[2024-08-15 12:18] VITALS: BP 117/74; PULSE 82; RESP 18; O2SAT 94
[2024-08-15 12:28] VITALS: BP 141/86; PULSE 82; RESP 20; O2SAT 95
== END 2024-08-15 12:40 | disposition home or self-care (01) ==
PROVIDERS: PCP Internal Medicine; Referring Provider Nurse Practitioner; Visit Provider Internal Medicine Gastroenterology
PROC: 0DJD8ZZ Inspection of Lower Intestinal Tract, Via Natural or Artificial Opening Endoscopic (ICD-10-PCS; CPT 45378; principal; 2024-08-15 12:30)
DX: K52.832 Lymphocytic colitis (principal); K63.5 Polyp of colon; F17.210 Nicotine dependence, cigarettes, uncomplicated; E66.9 Obesity, unspecified; Z68.39 Body mass index [BMI] 39.0-39.9, adult
CPT/HCPCS: 45385; 45380; 88305; J2003; J2704; J7120

== ENCOUNTER 2024-08-19 10:53 | Outpatient (CLI) | payer OTHER, SELFPAY ==
[2024-08-19 11:10] VITALS: BP 140/79; PULSE 88; RESP 16; TEMP 36.3; O2SAT 97; BMI 49.1
[2024-08-19] MEDS: ZOLEDRONIC ACID 5 MG/100 ML 100 ML 400 MG IVPB (11:15)
--- NOTE | 2024-08-19 11:40 | PC.NURSE ---
Patient here for yearly IV Reclast infusion. Education given. No concerns voiced. Infusion administered. SEE MAR/patient care notes.
[2024-08-19 11:41] VITALS: BP 136/77; PULSE 74; RESP 16
--- OUTSIDE RECORDS SUMMARY | 2024-08-19 13:00 | XMS_ITS | CONTINUITY OF CARE DOCUMENT ---
Author Name carina lim Address Unknown Organization [facility] Address [address] [place] [address] Phone [phone] Care Team Providers Care Milk Sampler Name Role Phone Aissatou Wu MD Unavailable [...] In-person encounter Office Visit Aissatou Wu MD [place] [facility] Shortness of breathHypercholesterolemiaHTN essentialTobacco abuseCHF - [...] Payer name Policy type / Coverage type [place] red green party ID [id number] [id number] TREATMENT PLAN Date Name Performer printed 09/04/14 1355 : H er updated medication list for this problem includes: Crestor 20 Mg Tabs (Rosuvastatin calcium) ..... One tab. daily Orders: C omplete Echo (CPT-64820) S TR - Adenosine (50912) Aissatou Wu MD printed 09/04/14 1355 : O rders: C omplete Echo (CPT-76477) S TR - Adenosine (28843) Aissatou Wu MD printed 09/04/14 1355 : H er updated medication list for this problem includes: Amlodipine Besylate 10 Mg Oral Tabs (Amlodipine besylate) ..... 1 tablet daily Orders: C omplete Echo (CPT-63873) S TR - Adenosine (95848) Aissatou Wu MD printed 09/04/14 1355 : H er updated medication list for this problem includes: Amlodipine Besylate 10 Mg Oral Tabs (Amlodipine besylate) ..... 1 tablet daily Orders: C omplete Echo (CPT-[id number]) S TR - Adenosine (53884) Aissatou Wu MD Date Name STR - Adenosine Complete Echo
--- OUTSIDE RECORDS SUMMARY | 2024-08-19 13:00 | XMS_ITS | Encounter Summary ---
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
--- OUTSIDE RECORDS SUMMARY | 2024-08-19 13:00 | XMS_ITS | Referral Summary ---
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 Alisha Velasquez CLASS A TRUCK DRIVER IMG CT PROCEDURES Final Result * Hepatitis C antibody (03/29/2021 10:38 AM CDT) Hep C Ab Nonreactive Nonreactive [facility] Comment:Antibodies to HCV no t detected. Does NOT exclude the possibility of recent exposure to HCV. Blood 03/29/2021 10:3 8 AM CDT 03/29/2021 1:00 PM CDT Richar Marie DO LAB MICROBIOLOGY - GENER AL ORDERABLES Edited Result - Final [facility] Department [place] [address] from Last 3 Months or Most Recently Relevant to Health Maintenance Insurance [facility] CIGNA CIGNA OPEN ACCESS MEDICARE CIGNA MEDICARE Care Teams Chemical Dependency Counselor Relationship Specialty Start Date End Date Joseluis Rodriguez MD [address] [place] [address] PCP - General 08/08/17
--- OUTSIDE RECORDS SUMMARY | 2024-08-19 13:00 | XMS_ITS | Clinical Summary ---
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 Alisha Velasquez PURCHASING CONTRACTING CLERK IMG CT PROCEDURES Final Result * Hepatitis C antibody (03/29/2021 10:38 AM CDT) Hep C Ab Nonreactive Nonreactive [facility] Comment:Antibodies to HCV no t detected. Does NOT exclude the possibility of recent exposure to HCV. Blood 03/29/2021 10:3 8 AM CDT 03/29/2021 1:00 PM CDT Richar Marie DO LAB MICROBIOLOGY - GENER AL ORDERABLES Edited Result - Final [facility] One [facility] [place] [address] from Last 3 Months or Most Recently Relevant to Health Maintenance Insurance [employer] CIGNA CIGNA OPEN ACCESS MEDICARE CIGNA [facility] HMO/PPO Address: [facility] [id number] [place] [id number] MEDICARE Care Teams Pharmacy Aide Relationship Specialty Start Date End Date Joseluis Rodriguez MD [address] [place], [place] [id number] PCP - General 08/08/17
--- OUTSIDE RECORDS SUMMARY | 2024-08-19 13:00 | XMS_ITS | Encounter Summary ---
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
== END 2024-08-19 10:54 | disposition home or self-care (01) ==
LOC: CHSLAB 10:57 → CHSTREATRM 11:03
PROVIDERS: PCP Internal Medicine; Visit Provider Internal Medicine
DX: M81.0 Age-related osteoporosis without current pathological fracture (principal)
CPT/HCPCS: 96374; J3489

== ENCOUNTER 2024-12-09 10:01 | Outpatient (CLI) | payer OTHER, SELFPAY ==
[2024-12-09 10:28] LABS: Hematocrit 45.4 % (35.0-49.0); Hemoglobin 15.6 g/dL (12.0-15.0); Immature Granulocyte Percent A 0.3 % (0.0-0.0); Lymphocytes Absolute Auto 2.83 K/mm3 (1.10-4.50); Mean Corpuscular HGB Conc 34.4 g/dL (32-36); Mean Corpuscular Hemoglobin 31.2 pg (27.0-31.0); Mean Corpuscular Volume 90.8 fL (78.0-102.0); Nucleated Red Blood Cells Absolute Auto 0.00 K/mm3 (0.00-0.00); Nucleated Red Blood Cells Perc 0.0 % (0-0.0); Platelet Count Result 296 K/mm3 (150-420); Red Blood Count 5.00 M/mm3 (4.20-5.40); White Blood Count 10.2 K/mm3 (4.8-10.8)
--- OUTSIDE RECORDS SUMMARY | 2024-12-09 10:29 | XMS_ITS | Clinical Summary ---
Author Organization [facility] Address [address] [place] [address] Care Team Providers Care Registrar Nurses' Registry Name Role Phone Joseluis Rodriguez MD Primary Care Provider Allergies No known active allergies Medications gabapentin (NEURONTIN) 600 mg tabletIndications:Lloyd ropathic Pain Take 1 tablet (600 mg total) by mouth 2 (two) times a day. 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 Left-sided chest wall pain 03/29/2018 Encounters Date Type Department Care Team Description 09/26/2024 9:55 AM CDT Lab [facility] Endocrinology Metabolism and Lipid [address] [place] [address] [address]th [place] [address] High risk medication use; Psoriatic arthritis (HCC); Axial spondyloarthritis 09/26/2024 9:00 AM CDT Office Visit [facility] Rheumatology [address] [facility] [address] [place] [address] Herlinda Chester MD High risk medication use (Primary Dx); Psoriatic arthritis (HCC); Axial spondyloarthritis; Tobacco abuse; Lymphocytic colitis 09/26/2024 Results Follow-Up [facility] Rheumatology [address] [place] [place] [address] Herlinda Chester MD CBC with auto differential, Erythrocyte sedimentation rate, CRP (acute phase) from Last 3 Months Immunizations Immunization Administration [...] Date Smoking Tobacco: Every Day Cigarettes 1 49.5 Started: 1975 Smokeless Tobacco: Never Tobacco Cessation:Ready to Q uit: Not Asked; Counseling Given: Not Answered Alcohol Use Standard Drinks/Week Comments No 0 (1 standard drink = 0.6 oz pur e alcohol) Comments No Sex and Gender Information Value Date Recorded Sex Assigned at Not on file 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 Gender Identity Female 09/01/2019 7:13 PM CDT Sexual Orientation Straight 09/01/2019 7: 13 PM CDT Obstetrics History Last Filed Vital Signs Vital Sign Reading Time Taken Comments Blood Pressure 149/82 09/26/2024 9:03 AM CDT Pulse 80 09/26/2024 9:03 AM CDT Temperature 36.4 C (97.6 F) 09/26/2024 9:03 AM CDT Respiratory Rate 20 09/26/2024 9:03 AM CDT Oxygen Saturation 95% 09/26/2024 9:03 AM CDT Inhaled Oxygen Concentration - - Weight 107.2 kg (236 lb 4.8 oz) 09/26/2024 9:03 AM CDT Height 162.6 cm (5' 4) 09/26/2024 9:03 AM CDT Body Mass Index 40.56 09/26/2024 9:03 AM CDT Plan of Treatment Health Maintenance Due Date Last Done Comments Breast Cancer Screening-Mammogram 1960 Cervical Cancer Screening 1960 Colon Cancer Screening-Colonoscopy 1960 Depression Screening 1960 Hepatitis B Screening 1978 Regular Well Visit/Exam 18-64 1978 Pneumococcal vaccine <65 (3 of 3 - PCV20 or PCV21) 03/03/2020 03/03/2015, 08/17/2014 Covid-19 Vaccine (4 - 2023-2 5 season) 2024 04/19/2021, 08/24/2020, 08/03/2020 Lung Cancer Screening 01/18/2025 01/19/2023 Influenza Vaccine (Season Ended) 2025 06/26/2023, 01/27/2022, 01/19/2021, Additional history exists DTaP/Tdap/Td Vaccine (3 - Td or Tdap) 06/26/2033 06/26/2023, 04/16/2013 Zoster Vaccine Completed 05/19/2020, 02/05/2020 Hepatitis C Screening Completed 03/29/2021 Procedures Procedure Name Priority Date/Time Associated Diagnosis Comments CRP (ACUTE PHASE) Routine 09/26/2024 9:5 3 AM CDT High risk medication use Psoriatic arthritis (HCC) Axial spondyloarthritis ERYTHROCYTE SEDIMENTATION RATE Routine 09/26/2024 9:53 AM CDT High risk medication use Psoriatic arthritis (HCC) Axial spondyloarthritis COMPREHENSIVE METABOLIC PANEL Routine 09/26/2024 9:53 AM CDT High risk medication use Psoriatic arthritis (HCC) Axial spondyloarthritis CBC WITH AUTO DIFFERENTIAL Routine 09/26/2024 9:53 AM CDT High risk medication use Psoriatic arthritis (HCC) Axial spondyloarthritis CT LUNG CANCER SCREENING Schedule DENNIS, Read DENNIS (Appt Today, Awaiting Results) 01/19/2023 9:11 AM CDT Pulmonary nodules HEPATITIS C ANTIBODY Routine 03/29/2021 10:38 AM CDT SAPHO syndrome (HCC) from Last 3 Months or Most Recently Relevant to Health Maintenance Results * (ABNORMAL) CBC with auto differential (09/26/2024 9:53 AM CDT) White Blood Count 10.2 3.6 - 11.2 K/uL [facility] RBC 4.81 3.63 - 4.92 M/uL [facility] Hemoglobin 15.4 11.9 - 15.5 g/dL [facility] Hematocrit 44.4(H) 36.1 - 44.3 % [facility] MCV 92.4 80.0 - 97.6 fL [facility] MCH 32.0 26.7 - 33.7 pg [facility] MCHC 34.6 32.7 - 35.5 g/dL [facility] RBC Dist Width 15.4 12.3 - 17.0 % [facility] Platelet Count 276 140 - 440 K/uL [facility] MPV 7.7 6.8 - 10.4 fL [facility] Neutrophils % 58.1 38.7 - 74.5 % [facility] Lymphocyte % 32.9 20.0 - 54.3 % [facility] Monocytes % 8.0 4.3 - 13.5 % [facility] Eosinophils % 0.4 0.0 - 6.0 % [facility] Basophil % 0.6 0.0 - 3.0 % [facility] Absolute Neutrophil 5.9 1.8 - 6.6 K/uL [facility] Absolute Lymphocyte 3.3 0.8 - 3.3 K/uL [facility] Absolute Monocyte 0.8 0.2 - 1.2 K/uL [facility] Absolute Eosinophil 0.0 0.0 - 0.5 K/uL [facility] Absolute Basophil 0.1 0.0 - 0.2 K/uL [facility] Nucleated RBC % 0.2 0.0 - 0.4 /100 WBC [facility] Blood 09/26/2024 9:53 AM CDT 09/26/2024 11:05 AM CDT Herlinda Chester MD LAB BLOOD ORDERABLES F inal Result Performing Organization Address [facility] Co de Phone Number [facility]ORE [facility] * Erythrocyte sedimentation rate (09/26/2024 9:53 AM CDT) Erythrocyte Sedimentation Rate 18 <30 mm/hr [facility] Blood 09/26/2024 9:53 AM CDT 09/26/2024 11:05 AM CDT Herlinda Chester MD LAB BLOOD ORDERABLES F inal Result Performing Organization Address [facility] Co de Phone Number [facility] * CRP (acute phase) (09/26/2024 9:53 AM CDT) C-Reactive Protein, Acute <3.0 <5.0 mg/L [facility] Blood 09/26/2024 9:53 AM CDT 09/26/2024 11:05 AM CDT Herlinda Chester MD LAB BLOOD ORDERABLES F inal Result Performing Organization Address [facility] Co de Phone Number [facility] * (ABNORMAL) Comprehensive metabolic panel (09/26/2024 9:53 AM CDT) Total Protein 7.7 6.1 - 8.4 g/dL [facility] Albumin 4.2 3.5 - 5.2 g/dL [facility] Calcium 10.4(H) 8.6 - 10.3 mg/dL [facility] Comment:Repeated and Verifie d BUN 6(L) 7 - 23 mg/dL [facility] Total Bilirubin 0.42 0.20 - 1.40 mg/dL [facility] Alk Phos, Total 77 35 - 129 IU/L [facility] AST (SGOT) 39 11 - 47 IU/L [facility] ALT (SGPT) 69(H) 6 - 53 IU/L [facility] Creatinine 0.78 0.60 - 1.10 mg/dL [facility] Sodium 142 135 - 145 mmol/L [facility] Potassium 3.1(L) 3.3 - 5.1 mmol/L [facility] Chloride 103 95 - 107 mmol/L [facility] CO2 Content 29 21 - 29 mmol/L [facility] Glucose 74 64 - 99 mg/dL [facility] Comment: NONFASTING GLUCOSE RANGE = 64-199 mg/dL FASTING GLUCOSE 64 - 99 = NORMAL FASTING GLUCOSE 100 - 125 = IMPAIRED FASTING GLUCOSE FASTING GLUCOSE >=126 = PROVISIONAL DIAGNOSIS OF DIABETES eGFR 84.8 >60.0 mL/min/1.7 3 m2 [facility] Blood 09/26/2024 9:53 AM CDT 09/26/2024 11:05 AM CDT us Herlinda Chester MD LAB BLOOD ORDERABLES F inal Result [facility] * CT Lung Cancer Screening (01/19/2023 9:11 [...] signed by: Jose Bryant M.D. Alisha Velasquez MANUFACTURING ELECTRICIAN IMG CT PROCEDURES Final Result * Hepatitis C antibody (03/29/2021 10:38 AM CDT) Hep C Ab Nonreactive Nonreactive [facility] Comment:Antibodies to HCV no t detected. Does NOT exclude the possibility of recent exposure to HCV. Blood 03/29/2021 10:3 8 AM CDT 03/29/2021 1:00 PM CDT Richar Marie DO LAB MICROBIOLOGY - GENER AL ORDERABLES Edited Result - Final [facility] Department [place] [address] from Last 3 Months or Most Recently Relevant to Health Maintenance Insurance [facility] OPEN ACCESS MEDICARE [facility] MEDICARE Care Teams Registrar Nurses' Registry Relationship Specialty Start Date End Date Joseluis Rodriguez MD [address] [place] [address] PCP - General 08/08/17
--- OUTSIDE RECORDS SUMMARY | 2024-12-09 10:29 | XMS_ITS | Encounter Summary ---
Author Organization [facility] Address [address] [place] [address] Phone Care Team Providers Care Tool Crib Supervisor Name Role Phone Joseluis Rodriguez MD Primary Care Provider [phone] Encounter Details Date Type Department Care Team ([facility] Contact Info) Description 06/07/2023 Orders Only [facility] Scanning, Provider Social History Tobacco Use Types Packs/Day Years Used Date Smoking Tobacco: Every Day Cigarettes 1 49.5 Started: 1975 Smokeless Tobacco: Never Alcohol Use Standard Drinks/Week Comments No 0 (1 standard drink = 0.6 oz pur e alcohol) Comments No Sex and Gender Information Value Date Recorded Sex Assigned at Not on file 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
--- OUTSIDE RECORDS SUMMARY | 2024-12-09 10:29 | XMS_ITS | Encounter Summary ---
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
--- OUTSIDE RECORDS SUMMARY | 2024-12-09 10:29 | XMS_ITS | Referral Summary ---
Author Organization [facility] Address [address] [place] [address] Care Team Providers Care Dtp Operator Name Role Phone Joseluis Rodriguez MD Primary Care Provider Encounters Date Type Department Care Team Description 09/26/2024 Results Follow-Up [facility] Rheumatology [address] [place] [address] [place] [phone] Herlinda Chester MD CBC with auto differential, Erythrocyte sedimentation rate, CRP (acute phase) 09/26/2024 9:55 AM CDT Lab [facility] Endocrinology Metabolism and Lipid [address] [place] [phone] High risk medication use; Psoriatic arthritis (HCC); Axial spondyloarthritis 09/26/2024 9:00 AM CDT Office Visit [facility] Rheumatology [address] [place] [phone] Herlinda Chester MD High risk medication use (Primary Dx); Psoriatic arthritis (HCC); Axial spondyloarthritis; Tobacco abuse; Lymphocytic colitis from Last 3 Months Allergies No known [...] on file Legal Sex Female 10:29 AM VP STRATEGIC PARTNERSHIPS Gender Identity Female 09/01/2019 7:13 PM CDT [...] 09/26/2024 9:03 AM CDT Plan of Treatment Not on [...] ORDERABLES F inal Result Performing Organization Address City/[facility] Co de Phone Number [facility] * Erythrocyte sedimentation rate (09/26/2024 9:53 AM CDT) Erythrocyte Sedimentation Rate 18 <30 mm/hr [facility] Blood 09/26/2024 9:53 AM CDT 09/26/2024 11:05 AM CDT Herlinda Chester MD LAB BLOOD ORDERABLES F inal Result Performing Organization Address [facility] Co de Phone Number [facility] * CRP (acute phase) (09/26/2024 9:53 AM CDT) C-Reactive Protein, Acute <3.0 <5.0 mg/L [facility] Blood 09/26/2024 9:53 AM CDT 09/26/2024 11:05 AM CDT Herlinda Chester MD LAB BLOOD ORDERABLES F inal Result Performing Organization Address City/[facility] Co de Phone Number [facility] * (ABNORMAL) [...] signed by: Jose Bryant M.D. Alisha Velasquez SENIOR RESEARCH PROJECT MANAGER IMG CT PROCEDURES Final Result * Hepatitis C antibody (03/29/2021 10:38 AM CDT) Hep C Ab Nonreactive Nonreactive [facility] Comment:Antibodies to HCV no t detected. Does NOT exclude the possibility of recent exposure to HCV. Blood 03/29/2021 10:3 8 AM CDT 03/29/2021 1:00 PM CDT Richar Marie DO LAB MICROBIOLOGY - GENER AL ORDERABLES Edited Result - Final [facility] Department [place] [address] from Last 3 Months or Most Recently Relevant to Health Maintenance Insurance CIGNA [facility] CIGNA OPEN ACCESS MEDICARE CIGNA MEDICARE Care Teams Dtp Operator Relationship Specialty Start Date End Date Joseluis Rodriguez MD [address] [place] [address] PCP - General 08/08/17
[2024-12-09 10:35] LABS: Add Urine Microscopic? NO; Appearance Urine Clear (Clear); Glucose Urine UA Negative (Negative); Leukocyte Esterase Ur Negative LEU/UL (Negative); Nitrate Urine Negative (Negative); Specific Grav Ur 1.015 (1.010-1.020)
[2024-12-09 10:42] LABS: Hemoglobin A1C 6.0 % (<5.7)
[2024-12-09 10:45] LABS: Alanine Aminotransferase 63 U/L (6-35); Albumin Level 4.1 g/dL (3.5-5.1); Alkaline Phosphatase 86 U/L (38-126); Anion Gap 7 mmol/L (4-12); Aspartate Amino Transferase 47 U/L (14-36); Bilirubin,Total 0.7 mg/dL (0.2-1.3); Blood Urea Nitrogen 5 mg/dL (7-17); Calcium 9.1 mg/dL (8.4-10.2); Carbon Dioxide 28 mmol/L (22-30); Chloride 107 mmol/L (98-107); Cholesterol 208 mg/dL (0-200); Creatine Kinase 36 U/L (30-135); Estimated Glomerular Filt Rate > 60; Glucose 124 mg/dL (65-110); HDL Direct 50 mg/dL; Osmolality Calculated 292 mOsm/kg (285-295); Potassium 4.0 mmol/L (3.4-5.0); Sodium 142 mmol/L (137-145); Total Protein 7.4 g/dL (6.3-8.2); Triglycerides 208 mg/dL (<150)
[2024-12-09 11:03] LABS: Free T3 4.22 pg/mL (2.18-3.98); Free T4 Free Thyroxine 1.04 ng/dL (0.78-2.19)
[2024-12-09 11:16] LABS: Thyroid Stimulating Hormone 3.200 uIU/mL (0.465-4.680)
[2024-12-09 11:22] LABS: MALB Creatinine Ratio 17.4 mg/g (0-30)
== END 2024-12-09 10:02 | disposition home or self-care (01) ==
PROVIDERS: PCP Internal Medicine; Visit Provider Internal Medicine
DX: E78.2 Mixed hyperlipidemia (principal); I10 Essential (primary) hypertension; R73.01 Impaired fasting glucose; R53.82 Chronic fatigue, unspecified; K86.81 Exocrine pancreatic insufficiency; M81.0 Age-related osteoporosis without current pathological fracture; N39.0 Urinary tract infection, site not specified
CPT/HCPCS: 36415; 80053; 80061; 81003; 82043; 82306; 82550; 83036; 84439; 84443; 84481; 85025

== ENCOUNTER 2024-12-17 09:47 | Outpatient (CLI) | payer OTHER, SELFPAY ==
--- NOTE | ~2024-12-17 | MM_ITS ---
EXAMINATION: MM screening luis a BI w keshav HISTORY: Screening TECHNIQUE: Craniocaudal and mediolateral oblique 3-D tomosynthesis images were obtained and synthetic 2-D images were generated. CAD analysis was submitted and interpreted. COMPARISON: Comparison to multiple prior studies sequentially, with oldest reviewed study dated 08/20. BREAST PARENCHYMAL COMPOSITION: There are scattered areas of fibroglandular density. FINDINGS: There is no evidence of suspicious mass, calcification, or architectural distortion to sug gest malignancy in either breast. IMPRESSION: 1. No mammographic evidence of malignancy. 2. Recommend routine screening mammography in one year. BI-RADS Category 1: Negative Reviewed, dictated and finalized at location B.
--- OUTSIDE RECORDS SUMMARY | 2024-12-17 09:50 | XMS_ITS | Encounter Summary ---
Author Organization [facility] Address [address] [place] [address] Phone Care Team Providers Care Service Worker Name Role Phone Joseluis Rodriguez MD Primary Care Provider [phone] Encounter Details Date Type Department Care Team ([facility] Contact Info) Description 06/07/2023 Orders Only [facility] Scanning, Provider Social History Tobacco Use Types Packs/Day Years Used Date Smoking Tobacco: Every Day Cigarettes 1 49.6 Started: 1975 Smokeless Tobacco: Never Alcohol Use Standard Drinks/Week Comments No 0 (1 standard drink = 0.6 oz pur e alcohol) Comments No Sex and Gender Information Value Date Recorded Sex Assigned at Not on file 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
--- OUTSIDE RECORDS SUMMARY | 2024-12-17 09:50 | XMS_ITS | Encounter Summary ---
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
--- OUTSIDE RECORDS SUMMARY | 2024-12-17 09:51 | XMS_ITS | Clinical Summary ---
Author Organization [facility] Address [address] [place] [address] Care Team Providers Care Jowl Trimmer Name Role Phone Joseluis Rodriguez MD [...] Team Description 09/26/2024 9:55 AM CDT Lab [facility] Endocrinology Metabolism and Lipid [address] [place] [address] 5th [place] [address] High risk medication use; Psoriatic arthritis (HCC); Axial spondyloarthritis 09/26/2024 9:00 AM CDT Office Visit [facility] Rheumatology [address] [facility] 5th [place] [address] Herlinda Chester MD High risk medication use (Primary Dx); Psoriatic arthritis (HCC); Axial spondyloarthritis; Tobacco abuse; Lymphocytic colitis 09/26/2024 Results Follow-Up [facility] Rheumatology [address] [place] [address] Herlinda Chester MD CBC with auto differential, [...] 1 49.6 Started: 1975 Smokeless Tobacco: Never Tobacco Cessation:Ready to Q uit: Not Asked; Counseling Given: Not Answered Alcohol Use Standard Drinks/Week Comments No 0 (1 standard drink = 0.6 oz pur e alcohol) Comments No Sex and Gender Information Value Date Recorded Sex Assigned at Not on file 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 Co de Phone Number [facility] * Erythrocyte sedimentation rate (09/26/2024 9:53 AM CDT) Erythrocyte Sedimentation Rate 18 <30 mm/hr [facility] Blood 09/26/2024 9:53 AM CDT 09/26/2024 11:05 AM CDT Herlinda Chester MD LAB BLOOD ORDERABLES F inal Result Performing Organization Address [facility] Co de Phone Number [facility] * CRP (acute phase) (09/26/2024 9:53 AM CDT) C-Reactive Protein, Acute <3.0 <5.0 mg/L [facility] Blood 09/26/2024 9:53 AM CDT 09/26/2024 11:05 AM CDT Herlinda Chester MD LAB BLOOD ORDERABLES F inal Result Performing Organization Address [facility] Co de Phone Number [facility] * (ABNORMAL) [...] signed by: Jose Bryant M.D. Alisha Velasquez FRONT END WEB DEVELOPER IMG CT PROCEDURES Final Result * Hepatitis C antibody (03/29/2021 10:38 AM CDT) Hep C Ab Nonreactive Nonreactive [facility] Comment:Antibodies to HCV no t detected. Does NOT exclude the possibility of recent exposure to HCV. Blood 03/29/2021 10:3 8 AM CDT 03/29/2021 1:00 PM CDT Richar Marie DO LAB MICROBIOLOGY - GENER AL ORDERABLES Edited Result - Final [facility] Department [place] [address] from Last 3 Months or Most Recently Relevant to Health Maintenance Insurance [facility] OPEN ACCESS MEDICARE [facility] MEDICARE Care Teams Jowl Trimmer Relationship Specialty Start Date End Date Joseluis Rodriguez MD [address] [place] [address] PCP - General 08/08/17
--- OUTSIDE RECORDS SUMMARY | 2024-12-17 09:51 | XMS_ITS | Referral Summary ---
Author Organization [facility] Address [address] [place] [address] Care Team Providers Care Senior Information Security Consultant Name Role Phone Joseluis Rodriguez MD Primary Care Provider Encounters Date Type Department Care Team Description 09/26/2024 Results Follow-Up [facility] Rheumatology [address] [place] [address] [place] [phone] Herlinda Chester MD CBC with auto differential, Erythrocyte sedimentation rate, CRP (acute phase) 09/26/2024 9:55 AM CDT Lab [facility] Endocrinology Metabolism and Lipid [address] [place] [phone] High risk medication use; Psoriatic arthritis (HCC); Axial spondyloarthritis 09/26/2024 9:00 AM CDT Office Visit [facility] Rheumatology [address] [place] [phone] Herlinda Chester MD High risk medication use [...] on file Legal 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 Female 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 Gender Identity Female 09/01/2019 7:13 PM CDT [...] ORDERABLES F inal Result Performing Organization Address City/[facility] Co de Phone Number [facility] * Erythrocyte sedimentation rate (09/26/2024 9:53 AM CDT) Erythrocyte Sedimentation Rate 18 <30 mm/hr [facility] Blood 09/26/2024 9:53 AM CDT 09/26/2024 11:05 AM CDT Herlinda Chester MD LAB BLOOD ORDERABLES F inal Result Performing Organization Address [facility] Co de Phone Number [facility] * CRP (acute phase) (09/26/2024 9:53 AM CDT) C-Reactive Protein, Acute <3.0 <5.0 mg/L [facility] Blood 09/26/2024 9:53 AM CDT 09/26/2024 11:05 AM CDT Herlinda Chester MD LAB BLOOD ORDERABLES F inal Result Performing Organization Address City/[facility] Co de Phone Number [facility] [...] signed by: Jose Bryant M.D. Alisha Velasquez HEAD OF PARTNER DEVELOPMENT IMG CT PROCEDURES Final Result * Hepatitis C antibody (03/29/2021 10:38 AM CDT) Hep C Ab Nonreactive Nonreactive [facility] Comment:Antibodies to HCV no t detected. Does NOT exclude the possibility of recent exposure to HCV. Blood 03/29/2021 10:3 8 AM CDT 03/29/2021 1:00 PM CDT Richar Marie DO LAB MICROBIOLOGY - GENER AL ORDERABLES Edited Result - Final [facility] Department [place] [address] from Last 3 Months or Most Recently Relevant to Health Maintenance Insurance CIGNA [facility] CIGNA OPEN ACCESS MEDICARE CIGNA MEDICARE Care Teams Senior Information Security Consultant Relationship Specialty Start Date End Date Joseluis Rodriguez MD [address] [place] [address] PCP - General 08/08/17
== END 2024-12-17 09:48 | disposition home or self-care (01) ==
LOC: CHSIMG 09:48
PROVIDERS: PCP Internal Medicine; Visit Provider Internal Medicine
DX: Z12.31 Encounter for screening mammogram for malignant neoplasm of breast (principal)
CPT/HCPCS: 77063; 77067

== ENCOUNTER 2025-01-19 11:12 | Outpatient (CLI) | payer OTHER, SELFPAY ==
--- NOTE | 2025-01-19 | CY_PTH ---
PATIENT: Farhana Mcallister LOC: [facility]#:[id number] AGE/SX: 64/F ROOM: RE01/19/[address]: Joseluis Rodriguez MD : 1960 BED: DIS: 01/19/2025 SPEC #: [id number] RECD: 01/19/25 14:49 STATUS: LUDIVINA REQ #: [id number] HIWOT: 01/19/25 00:[address]: Joseluis Rodriguez DEPT: [facility] Cytology RECD BY: Chika Bloom MLT, ([facility]) Procedures: Crystalline Analysis
--- NOTE | ~2025-01-19 | DEXA_ITS ---
Bone Density Report Name: OLIVA BARON Age: 64 Sex: Female Ethnicity: White Date of : 1960 Indication: monitoring treatment; parental hip fracture; rheumatoid arthritis; secondary osteoporosis; Referring Provider: Joseluis Rodriguez Study: Bone densitometry was performed. Exam Date: January 19, 2025 Accession number: [id number] Bone Density: Region BMD T-score Z-score Classification AP Spine(L1-L4) 0.997 -0.5 1.3 Normal Femoral Neck (Left) 0.609 -2.2 -0.7 Osteopenia Total Hip (Left) 0.867 -0.6 0.6 Normal Femoral Neck (Right) 0.603 -2.2 -0.7 Osteopenia Total Hip (Right) 0.811 -1.1 0.1 Osteopenia Femoral Neck Mean 0.606 -2.2 -0.7 Osteopenia Total Hip Mean 0.839 -0.8 0.4 Normal World Health Organization criteria for BMD impression classify patients as: Normal (T-score at or above -1.0), Osteopenia (T-score between -1.0 and -2.5), or Osteoporosis (T-score at or below -2.5). 10-year Fracture Risk: FRAX not reported because: Treated for osteoporosis Previous Exams: Region Exam Age BMD T-score BMD Change BMD Change Date g/cm2 vs Baseline vs Previous AP Spine (L1-L4) 01/19/2025 64 0.997 -0.5 0.046 (4.9%)* 0.046 (4.9%)* 07/11/2023 63 0.950 -0.9 Total Hip(Left) 01/19/2025 64 0.867 -0.6 0.020 (2.4%) 0.020 (2.4%) 07/11/2023 63 0.847 -0.8 Total Hip(Right) 01/19/2025 64 0.811 -1.1 -0.048 (-5.6%) -0.048 (-5.6%) 07/11/2023 63 0.859 -0.7 *Denotes significance at 95% confidence level, LSC for AP Spine = 0.022 g/cm2, LSC for Total Hip = 0.027 g/cm2 Clinical Information Provided by Patient: Parent has had a hip fracture Smokes Has rheumatoid arthritis Has secondary osteoporosis Is being treated for osteoporosis Has used the following medications: MULTI Patient maximum height was 64 Menopause Age: 54 Does not regularly consume dairy products Drinks caffeinated beverages Onset of menses at age 13 Number of children 2 Impression: The patient has low bone mass, based on the Left Femoral Neck T-score. The patient has risk factors, including: parental hip fracture, smoking. The BMD for the Total Hip(Right) decreased, changing by -5.6% since the last DXA exam. Discussion: SIGNIFICANT BONE LOSS OBSERVED. Adherence to therapy (including calcium and vitamin D intake) should be assessed. If compliance is not a factor, review management and exclusion of secondary causes of bone loss. It is important to ask patients whether they are taking their medications and to encourage continued and appropriate compliance with their osteoporosis therapies to reduce fracture risk. It is also important to review their risk factors and encourage appropriate calcium and vitamin D intakes, exercise, fall prevention and other lifestyle measures. Follow-Up: Consider a repeat BMD and Vertebral Fracture Assessment (VFA) exam in 2 years or sooner if medically necessary, to reassess this patient's status. Reported by: SABA on 01/19/2025 11:42:00 AM. Reviewed, dictated and finalized at location A.
[2025-01-19 11:25] LABS: Hematocrit 43.5 % (35.0-49.0); Hemoglobin 15.0 g/dL (12.0-15.0); Mean Corpuscular HGB Conc 34.5 g/dL (32-36); Mean Corpuscular Hemoglobin 31.3 pg (27.0-31.0); Mean Corpuscular Volume 90.6 fL (78.0-102.0); Platelet Count Result 333 K/mm3 (150-420); Red Blood Count 4.80 M/mm3 (4.20-5.40); White Blood Count 8.7 K/mm3 (4.8-10.8)
--- OUTSIDE RECORDS SUMMARY | 2025-01-19 11:55 | XMS_ITS | Encounter Summary ---
Author Organization [facility] Address [address] [place] [address] Phone Care Team Providers Care Manual Equipment Mechanic Name Role Phone Joseluis Rodriguez MD Primary Care Provider [phone] Encounter Details Date Type Department Care Team ([facility] Contact Info) Description 05/23/2023 Orders Only [facility] [...] on file Legal Sex Female 10:29 AM ADMISSIONS DIRECTOR Gender Identity Female 09/01/2019 7:13 PM [...] on filedocumented in this encounter Care Teams Manual Equipment Mechanic Relationship Specialty Start Date End Date Joseluis Rodriguez MD [address] [place] [address] PCP - General 08/08/17 documented as of this encounter
--- OUTSIDE RECORDS SUMMARY | 2025-01-19 11:55 | XMS_ITS | Encounter Summary ---
Author Organization [facility] Address [address] [place] [address] Phone Care Team Providers Care Scutcher Tender Name Role Phone Joseluis Rodriguez MD Primary Care Provider [phone] Encounter Details Date Type Department Care Team ([facility] Contact Info) Description 06/07/2023 Orders Only [facility] [...] on file Legal Sex Female 10:29 AM QUALITY LEAD Gender Identity Female 09/01/2019 7:13 PM CDT [...] on filedocumented in this encounter Care Teams Scutcher Tender Relationship Specialty Start Date End Date Joseluis Rodriguez MD [address] [place] [address] PCP - General 08/08/17 documented as of this encounter
--- OUTSIDE RECORDS SUMMARY | 2025-01-19 11:55 | XMS_ITS | Clinical Summary ---
Author Organization [facility] Address [address] [place] [address] Care Team Providers Care Paper Colorer Name Role Phone Joseluis Rodriguez MD Primary Care Provider [phone] Allergies No known active allergies Medications gabapentin [...] on file Legal Sex Female 10:29 AM CURATOR Gender Identity Female 09/01/2019 7:13 PM CDT [...] signed by: Jose Bryant M.D. Alisha Velasquez NURSERYMAN ASSISTANT IMG CT PROCEDURES Final Result * Hepatitis C antibody (03/29/2021 10:38 AM CDT) Hep C Ab Nonreactive Nonreactive [facility] Comment:Antibodies to HCV no t detected. Does NOT exclude the possibility of recent exposure to HCV. Blood 03/29/2021 10:3 8 AM CDT 03/29/2021 1:00 PM CDT Richar Marie DO LAB MICROBIOLOGY - GENER AL ORDERABLES Edited Result - Final [facility] Department [place] [address] from Last 3 Months or Most Recently Relevant to Health Maintenance Insurance [employer] CIGNA [facility] OPEN ACCESS MEDICARE CIGNA MEDICARE Care Teams Paper Colorer Relationship Specialty Start Date End Date Joseluis Rodriguez MD [address] [place] [address] PCP - General 08/08/17
[2025-01-19 11:56] LABS: Alanine Aminotransferase 87 U/L (6-35); Albumin Level 4.2 g/dL (3.5-5.1); Alkaline Phosphatase 90 U/L (38-126); Anion Gap 7 mmol/L (4-12); Aspartate Amino Transferase 88 U/L (14-36); Bilirubin,Total 0.6 mg/dL (0.2-1.3); Blood Urea Nitrogen 5 mg/dL (7-17); Calcium 9.9 mg/dL (8.4-10.2); Carbon Dioxide 27 mmol/L (22-30); Chloride 106 mmol/L (98-107); Estimated Glomerular Filt Rate > 60; Glucose 117 mg/dL (65-110); Osmolality Calculated 288 mOsm/kg (285-295); Potassium 4.0 mmol/L (3.4-5.0); Sodium 140 mmol/L (137-145); Total Protein 7.8 g/dL (6.3-8.2)
[2025-01-19 12:06] LABS: NT Pro B Type Natriuretic Pept < 20 pg/mL (19.9-100)
[2025-01-19 12:12] LABS: Free T3 4.97 pg/mL (2.18-3.98)
[2025-01-19 12:14] LABS: Free T4 Free Thyroxine 1.10 ng/dL (0.78-2.19)
[2025-01-19 12:28] LABS: Thyroid Stimulating Hormone 2.420 uIU/mL (0.465-4.680)
== END 2025-01-19 11:13 | disposition home or self-care (01) ==
LOC: CHSIMG 11:15
PROVIDERS: PCP Internal Medicine; Visit Provider Internal Medicine
DX: K76.0 Fatty (change of) liver, not elsewhere classified (principal); K58.9 Irritable bowel syndrome, unspecified; M25.462 Effusion, left knee; R06.00 Dyspnea, unspecified
CPT/HCPCS: 36415; 77080; 80053; 82365; 83880; 84439; 84443; 84481; 85027; 89051

== ENCOUNTER 2025-01-29 09:13 | Outpatient (CLI) | payer OTHER, SELFPAY ==
--- NOTE | ~2025-01-29 | CT_ITS ---
EXAMINATION: CT abdomen pelvis w con, 01/29/2025 9:19 CDT HISTORY: liver enzymes/ascites COMPARISON: No comparisons available. TECHNIQUE: CT scan of the abdomen and pelvis was performed with contrast. Isovue 300, 92cc injected IV. One or more of the following dose reduction techniques were used: automated exposure control, adjustment of the mA and/or kV according to patient size, use of iterative reconstruction technique. Unless otherwise stated, incidental findings do not require dedicated follow up imaging FINDINGS: CT abdomen: LUNG BASES: The lung bases are clear. The visualized portions of the heart and pericardium are unremarkable. LIVER: Moderate hepatic steatosis. Portal vein patent. No intrahepatic biliary duct dilatation. SPLEEN: Unremarkable, no splenomegaly. KIDNEYS: Right Kidney: Right kidney mid pole 2 mm calculus, no hydronephrosis. Left Kidney: Unremarkable. No calculi. No hydronephrosis ADRENAL GLANDS: Unremarkable. PANCREAS: Unremarkable. GALLBLADDER/BILIARY: Cholelithiasis. STOMACH AND ESOPHAGUS: Visualized stomach and esophagus within normal limits. BOWEL/MESENTERY: Moderate fecal content, no colitis or diverticulitis. Appendix normal. Mesentery normal. Small bowel normal. ADENOPATHY/RETROPERITONEUM: No lymphadenopathy. AORTA/VASCULATURE: Normal caliber aorta. FREE FLUID OR FREE AIR: No free fluid.. CT pelvis: SOLID ORGANS/REPRODUCTIVE: Uterus atrophic. No adnexal mass. BLADDER: Within normal limits. OSSEOUS STRUCTURES: No acute osseous abnormality.No suspicious lesions. OVERLYING SOFT TISSUES: Unremarkable. IMPRESSION: 1. No acute intra-abdominal process. 2. Incidental findings above Reviewed, dictated and finalized at location A.
--- OUTSIDE RECORDS SUMMARY | 2025-01-29 09:31 | XMS_ITS | Encounter Summary ---
Author Organization [facility] Address [address] [place] [address] Phone Care Team Providers Care Continuous Improvement Consultant Name Role Phone Joseluis Rodriguez MD Primary Care Provider [phone] Encounter Details Date Type Department Care Team ([facility] Contact Info) Description 05/23/2023 Orders Only [facility] Scanning, Provider Social History Tobacco Use Types Packs/Day Years Used Date Smoking Tobacco: Every Day Cigarettes 1 49.7 Started: 1975 Smokeless Tobacco: Never Alcohol Use Standard Drinks/Week Comments No 0 (1 standard drink = 0.6 oz pur e alcohol) Comments No Sex and Gender Information Value Date Recorded Sex Assigned at Not on file Legal Sex Female 10:29 AM MANAGER IN TRAINING Gender Identity Female 09/01/2019 7:13 PM CDT [...] on filedocumented in this encounter Care Teams Continuous Improvement Consultant Relationship Specialty Start Date End Date Joseluis Rodriguez MD [address] [place] [address] PCP - General 08/08/17 documented as of this encounter
--- OUTSIDE RECORDS SUMMARY | 2025-01-29 09:31 | XMS_ITS | Encounter Summary ---
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
--- OUTSIDE RECORDS SUMMARY | 2025-01-29 09:31 | XMS_ITS | Clinical Summary ---
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 Alisha Velasquez BABCOCK TESTER IMG CT PROCEDURES Final Result * Hepatitis [...] [facility] Department [place] [address] from Last 3 Months or Most Recently Relevant to Health Maintenance Insurance [employer] MEDICARE [address] [place] [address] [facility] OPEN ACCESS MEDIC[facility] CIG MEDICARE Care Teams Project Officer Relationship Specialty Start Date End Date Joseluis Rodriguez MD [address] [place] [address] PCP - General 08/08/17
== END 2025-01-29 09:14 | disposition home or self-care (01) ==
LOC: CHSIMG 09:14
PROVIDERS: PCP Internal Medicine; Visit Provider Internal Medicine
DX: R18.8 Other ascites (principal); R94.5 Abnormal results of liver function studies
CPT/HCPCS: 74177; Q9967

== ENCOUNTER 2025-02-02 12:54 | Outpatient (CLI) | payer OTHER, SELFPAY ==
--- OUTSIDE RECORDS SUMMARY | 2025-02-02 13:06 | XMS_ITS | Clinical Summary ---
Author Organization [facility] Address [address] [place] [address] Care Team Providers Care Wet Finisher Wool Name Role Phone Joseluis Rodriguez MD Primary Care Provider [phone] Allergies No known active allergies Medications gabapentin [...] Encounters Date Type Department Care Team Description 01/30/2025 10:00 AM CDT Office Visit [facility] Medicine Surgery [address] [place] [address] [address] [place] [phone] Bakari Rand MD 01/30/2025 9:00 AM CDT - 01/30/2025 11:59 PM CDT Hospital Encounter [facility] [address] [place] [address] Bakari Rand MD Pulmonary nodules Discharge Disposition: Discharge to home or self care 01/30/2025 Documentation [facility] Medicine Surgery [address] [place] [address] [address] [place] [phone] Alisha Velasquez NP from Last 3 Months Immunizations Immunization Administration Dates Next Due Influenza, Quadrivalent, Spl it, Intramuscular 03/05/2014 Influenza, Quadrivalent, Spl it, Preservative Free, Intramuscular 06/26/2023,01/27/2022,01/19/2021,02/13,02/08/2018,02/02/2017 Influenza, Trivalent, IM (MDV) 02/17/2015,2012,04/26/2012 Influenza, Unspecified 02/08/2018,02/02/2017 Pneumococcal Conjugate PCV 13 03/03/2015 Pneumococcal Polysaccharide [...] Every Day Cigarettes 1 49.7 Started: 1975 Passive Smoke Exposure: Current Smokeless Tobacco: Never Tobacco Cessation:Ready to Q uit: Not Asked; Counseling Given: Not Answered Alcohol Use Standard Drinks/Week Comments No 0 (1 standard drink = 0.6 oz pur e alcohol) Comments No Sex and Gender Information Value Date Recorded Sex Assigned at Not on file 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 Gender Identity Female 09/01/2019 7:13 PM CDT Sexual Orientation Straight 09/01/2019 7: 13 PM CDT Obstetrics History Last Filed Vital Signs Vital Sign Reading Time Taken Comments Blood Pressure 128/80 01/30/2025 9:48 AM CDT Pulse 89 01/30/2025 9:48 AM CDT Temperature 36.2 C (97.2 F) 01/30/2025 9:48 AM CDT Respiratory Rate 20 01/30/2025 9:48 AM CDT Oxygen Saturation 95% 01/30/2025 9:48 AM CDT Inhaled Oxygen Concentration - - Weight 112.9 kg (249 lb) 01/30/2025 9:48 AM CDT Height 162.6 cm (5' 4) 09/26/2024 9:03 AM CDT Body Mass Index 42.74 09/26/2024 9:03 AM CDT Plan of Treatment Health Maintenance Due Date Last Done Comments Breast Cancer Screening-Mammogram 1960 Cervical Cancer Screening 1960 Colon Cancer Screening-Colonoscopy 1960 Depression Screening 1960 Hepatitis B Screening 1978 Regular Well Visit/Exam 18-64 1978 Pneumococcal vaccine <65 (3 of 3 - PCV20 or PCV21) 03/03/2020 03/03/2015, 08/17/2014 Covid-19 Vaccine (4 - 2024-2 6 season) 2025 04/19/2021, 08/24/2020, 08/03/2020 Influenza Vaccine (#1) 2025 , 01/27/2022, 01/19/2021, Additional history exists Lung Cancer Screening 01/31/2026 01/30/2025, 023 DTaP/Tdap/Td Vaccine (3 - Td or Tdap) 06/26/2033 06/26/2023, 04/16/2013 Zoster Vaccine Completed 05/19/2020, 02/05/2020 Hepatitis C Screening Completed 03/29/2021 Procedures Procedure Name Priority Date/Time Associated Diagnosis Comments CT LUNG CANCER SCREENING Schedule Routine, Read Routine (OP Routine) 01/30/2025 9:19 AM CDT Pulmonary nodules HEPATITIS C ANTIBODY Routine 03/29/2021 10:38 AM CDT SAPHO syndrome (HCC) from Last 3 Months or Most Recently Relevant to Health Maintenance Results * CT Lung Cancer Screening (01/30/2025 9:19 AM CDT) Anatomical Region Laterality Modality Chest N/A Computed Tomogra phy 01/30/2025 10:1 1 AM CDT Impressions 01/30/2025 11:21 AM CDT 1. LungRADS Category 2 (benign) . Recommend Low dose Screening CT of chest [...] of lung cancer who return to screening) Dictated by: Elza Booker MD The radiology attending physician has personally reviewed this study, and had reviewed and/or edited this written report and agrees with it. Electronically signed by: James Celis M.D. Narrative 01/30/2025 11:21 AM CDT EXAMINATION: Lung cancer screening CT of the Chest without intravenous contrast HISTORY: Lung Cancer Screening TECHNIQUE: Low radiation dose chest protocol. No intravenous contrast. Reconstructed slice width 1.[address] Dose Index 1.55 mGy. Dose-length product 57.2 mGy-cm. COMPARISON: 01/18/2024 FINDINGS: Lung nodules or findings of lung cancer: 6 mm right upper lobe pulmonary nodule minimally increased in size previously measuring 5 mm (series 2 image 109). Smoking related lung disease: Mild emphysema. Other findings: Multivessel coronary artery atherosclerosis. No acute CT process in the imaged upper abdomen. Chronic posterior 7th rib fracture deformity. No suspicious osseous lesion. Multilevel degenerative disc disease of the spine. Prior left thoracotomy. Procedure Note James Celis MD - 01/30/2025 EXAMINATION: Lung cancer screening CT of the Chest without intravenous contrast HISTORY: Lung Cancer Screening TECHNIQUE: Low radiation dose chest protocol. No intravenous contrast. Reconstructed slice width 1.[address] Dose Index 1.55 mGy. Dose-length product 57.2 mGy-cm. COMPARISON: 01/18/2024 FINDINGS: Lung nodules or findings of lung cancer: 6 mm right upper lobe pulmonary nodule minimally increased in size previously measuring 5 mm (series 2 image 109). Smoking related lung disease: Mild emphysema. Other findings: Multivessel coronary artery atherosclerosis. No acute CT process in the imaged upper abdomen. Chronic posterior 7th rib fracture deformity. No suspicious osseous lesion. Multilevel degenerative disc disease of the spine. Prior left thoracotomy. IMPRESSION: 1. LungRADS Category 2 (benign) . Recommend Low dose Screening CT of chest [...] of lung cancer who return to screening) Dictated by: Elza Booker MD The radiology attending physician has personally reviewed this study, and had reviewed and/or edited this written report and agrees with it. Electronically signed by: James Celis M.D. Bakari Rand MD IMG CT PROCEDURES Final R esult * Hepatitis C antibody (03/29/2021 10:38 AM CDT) Hep C Ab Nonreactive Nonreactive [facility] Comment:Antibodies to HCV no t detected. Does NOT exclude the possibility of recent exposure to HCV. Blood 03/29/2021 10:3 8 AM CDT 03/29/2021 1:00 PM CDT Richar Marie DO LAB MICROBIOLOGY - GENER AL ORDERABLES Edited Result - Final [facility] One [facility] Department of Laboratories [place], [place] [id number] from Last 3 Months or Most Recently Relevant to Health Maintenance Insurance CIGNA MEDICARE CIGNA CIGNA OPEN ACCESS MEDICARE [id number] MEDICARE Care Teams Wet Finisher Wool Relationship Specialty Start Date End Date Joseluis Rodriguez MD [address] [place] [address] [facility] - General 08/08/17
--- OUTSIDE RECORDS SUMMARY | 2025-02-02 13:06 | XMS_ITS | Encounter Summary ---
Author Organization 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
--- OUTSIDE RECORDS SUMMARY | 2025-02-02 13:06 | XMS_ITS | Encounter Summary ---
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
[2025-02-02 13:41] LABS: Anion Gap 9 mmol/L (4-12); Blood Urea Nitrogen 3 mg/dL (7-17); Calcium 10.1 mg/dL (8.4-10.2); Carbon Dioxide 28 mmol/L (22-30); Chloride 106 mmol/L (98-107); Estimated Glomerular Filt Rate > 60; Glucose 166 mg/dL (65-110); Osmolality Calculated 296 mOsm/kg (285-295); Potassium 4.4 mmol/L (3.4-5.0); Sodium 143 mmol/L (137-145)
== END 2025-02-02 12:55 | disposition home or self-care (01) ==
LOC: CHSLAB 12:56
PROVIDERS: PCP Internal Medicine; Visit Provider Internal Medicine
DX: I10 Essential (primary) hypertension (principal)
CPT/HCPCS: 36415; 80048

== ENCOUNTER 2025-02-19 13:30 | Outpatient (CLI) | payer OTHER, SELFPAY ==
--- NOTE | ~2025-02-19 | XR_ITS ---
Examination: XR chest 2V Clinical History: DYSPNEA/COUGH Comparison: Chest x-rays 07/04/2024 Technique: PA and Lateral Findings: Cardiomediastinal silhouette normal size and configuration. Lungs clear. No acute bony abnormality. Osteopenia. IMPRESSION: 1. No acute cardiopulmonary findings. Reviewed, dictated and finalized at location R.
[2025-02-19 13:43] LABS: Hematocrit 44.6 % (35.0-49.0); Hemoglobin 15.3 g/dL (12.0-15.0); Mean Corpuscular HGB Conc 34.3 g/dL (32-36); Mean Corpuscular Hemoglobin 31.2 pg (27.0-31.0); Mean Corpuscular Volume 91.0 fL (78.0-102.0); Platelet Count Result 275 K/mm3 (150-420); Red Blood Count 4.90 M/mm3 (4.20-5.40); White Blood Count 7.5 K/mm3 (4.8-10.8)
[2025-02-19 13:59] LABS: Alanine Aminotransferase 60 U/L (6-35); Albumin Level 4.4 g/dL (3.5-5.1); Alkaline Phosphatase 100 U/L (38-126); Anion Gap 12 mmol/L (4-12); Aspartate Amino Transferase 64 U/L (14-36); Bilirubin,Total 0.8 mg/dL (0.2-1.3); Blood Urea Nitrogen 14 mg/dL (7-17); Calcium 10.6 mg/dL (8.4-10.2); Carbon Dioxide 25 mmol/L (22-30); Chloride 106 mmol/L (98-107); Estimated Glomerular Filt Rate 29; Glucose 105 mg/dL (65-110); Osmolality Calculated 296 mOsm/kg (285-295); Potassium 4.4 mmol/L (3.4-5.0); Sodium 143 mmol/L (137-145); Total Protein 10.4 g/dL (6.3-8.2)
[2025-02-19 14:06] LABS: Add Urine Microscopic? NO; Appearance Urine Clear (Clear); Glucose Urine UA Negative (Negative); Leukocyte Esterase Ur Negative LEU/UL (Negative); Nitrate Urine Negative (Negative); Specific Grav Ur <= 1.005 (1.010-1.020)
--- OUTSIDE RECORDS SUMMARY | 2025-02-19 16:22 | XMS_ITS | Encounter Summary ---
Author Organization [facility] Address [address] [place] [address] Phone Care Team Providers Care Bacteriology Technician Name Role Phone Joseluis Rodriguez MD Primary Care Provider [phone] Encounter Details Date Type Department Care Team ([facility] Contact Info) Description 05/23/2023 Orders Only FIGUEROA [...] on file Legal Sex Female 10:29 AM CLIENT ANALYST Gender Identity Female 09/01/2019 7:13 PM CDT [...] on filedocumented in this encounter Care Teams Bacteriology Technician Relationship Specialty Start Date End Date Joseluis Rodriguez MD [address] [place] [address] PCP - General 08/08/17 documented as of this encounter
--- OUTSIDE RECORDS SUMMARY | 2025-02-19 16:22 | XMS_ITS | Encounter Summary ---
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
--- OUTSIDE RECORDS SUMMARY | 2025-02-19 16:22 | XMS_ITS | Clinical Summary ---
Author Organization [facility] Address [address] [place] [address] Care Team Providers Care Sales Marketing Coordinator Name Role Phone Joseluis Rodriguez MD Primary [...] Description 01/30/2025 10:00 AM CDT Office Visit [facility] Medicine Surgery [facility] [address] [place] [phone] Bakari Rand MD Pulmonary nodules (Primary Dx) 01/30/2025 9:00 AM CDT - 01/30/2025 11:59 PM CDT Hospital Encounter [facility]) [address] [place] [address] Bakari Rand MD Pulmonary nodules Discharge Disposition: Discharge to home or self care 01/30/2025 Documentation [facility] Medicine Surgery [facility] [address] [place] [address] Alisha Velasquez NP from Last 3 Months [...] on file 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 Gender Identity Female 09/01/2019 7:13 PM [...] Colon Cancer Screening-Colonoscopy 1960 Depression Screening 1960 Regular Well Visit/Exam 18-64 1978 Pneumococcal vaccine <65 (3 of 3 - PCV20 or PCV21) 03/03/2020 03/03/2015, 08/17/2014 Covid-19 Vaccine (4 - 2024-2 6 season) 2025 04/19/2021, 08/24/2020, 08/03/2020 Influenza Vaccine (#1) 2025 , 01/27/2022, 01/19/2021, Additional history exists Lung Cancer Screening 01/31/2026 01/30/2025, 023 DTaP/Tdap/Td Vaccine (3 - Td or Tdap) 06/26/2033 06/26/2023, 04/16/2013 Zoster Vaccine Completed 05/19/2020, 02/05/2020 Hepatitis B Screening Completed 03/29/2021 Hepatitis C Screening Completed 03/29/2021 Procedures Procedure [...] GENER AL ORDERABLES Edited Result - Final [facility] Department [place] [address] from Last 3 Months or Most Recently Relevant to Health Maintenance Insurance CIGNA MEDICARE CIGNA CIGNA OPEN ACCESS MEDICARE [address] [place] [address] [facility] MEDICARE Care Teams Sales Marketing Coordinator Relationship Specialty Start Date End Date Joseluis Rodriguez MD [address] [place] [address] [facility] - General 08/08/17
== END 2025-02-19 13:31 | disposition home or self-care (01) ==
PROVIDERS: PCP Internal Medicine; Visit Provider Internal Medicine
DX: R06.00 Dyspnea, unspecified (principal); I10 Essential (primary) hypertension; R05.9 Cough, unspecified; R79.1 Abnormal coagulation profile
CPT/HCPCS: 36415; 71046; 80053; 81003; 85027; 85380

== ENCOUNTER 2025-02-26 11:06 | Outpatient (CLI) | payer OTHER, SELFPAY ==
--- NOTE | ~2025-02-26 | CT_ITS ---
EXAMINATION: CTA chest PE protocol, 02/26/2025 13:30 CDT HISTORY: DYSPNEA / +DDIMER COMPARISON: No comparisons available. TECHNIQUE: CTA examination is obtained with contrast CTA examination technique is performed with arterial phase of contrast-enhancement. 3-D reconstruction with thin MIP axial and MPR coronal imaging is provided Isovue 300, 92cc injected IV. One or more of the following dose reduction techniques were used: automated exposure control, adjustment of the mA and/or kV according to patient size, use of iterative reconstruction technique. FINDINGS: No significant coronary calcification is present ([id number]) LUNGS: No tracheomalacia. No bronchiectasis. Minimal emphysematous changes. Basilar areas of linear atelectasis. Minimal pulmonary fibrotic changes. Contrast bolus is adequate, there is no pulmonary embolism identified. Mild pulmonary venous congestion. HEART AND PERICARDIUM: Mild cardiomegaly. AORTA: Normal caliber aorta.. PULMONARY ARTERIES: No pulmonary embolism ADENOPATHY/MEDIASTINUM: None. LIMITED VIEWS OF THE ABDOMEN: Within normal limits. OSSEOUS STRUCTURES: Moderate loss of vertebral heights and disc height throughout with mild kyphosis with fusion of several the disc spaces in the thoracic spine, there is no acute fracture or subluxation. OVERLYING SOFT TISSUES: Unremarkable. THYROID: The thyroid is unremarkable. IMPRESSION: 1. Negative for pulmonary embolism. Mild CHF Reviewed, dictated and finalized at location P.
--- OUTSIDE RECORDS SUMMARY | 2025-02-26 11:36 | XMS_ITS | Encounter Summary ---
Author Organization [facility] Address [address] [place] [address] Phone Care Team Providers Care Marketing Operations Consultant Name Role Phone Joseluis Rodriguez MD Primary Care Provider [phone] Encounter Details Date Type Department Care Team ([facility] Contact Info) Description 05/23/2023 Orders Only [facility] RHEUMATOLOGY Scanning, Provider Social History Tobacco Use Types Packs/Day Years Used Date Smoking Tobacco: Every Day Cigarettes 1 49.8 Started: 1975 Smokeless Tobacco: Never Alcohol Use Standard Drinks/Week Comments No 0 (1 standard drink = 0.6 oz pur e alcohol) Comments No Sex and Gender Information Value Date Recorded Sex Assigned at Not on file 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
--- OUTSIDE RECORDS SUMMARY | 2025-02-26 11:36 | XMS_ITS | Encounter Summary ---
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
--- OUTSIDE RECORDS SUMMARY | 2025-02-26 11:36 | XMS_ITS | Clinical Summary ---
Author Organization [facility] Address [address] [place] [address] Care Team Providers Care Monument Mason Name Role Phone Joseluis Rodriguez MD Primary Care Provider [phone] Allergies No known active allergies Medications gabapentin [...] Description 01/30/2025 10:00 AM CDT Office Visit [facility] Medicine Surgery [facility] [address] [place] [phone] Bakari Rand MD Pulmonary nodules (Primary Dx) 01/30/2025 9:00 AM CDT - 01/30/2025 11:59 PM CDT Hospital Encounter [facility]) [address] [place] [address] Bakari Rand MD Pulmonary nodules Discharge Disposition: Discharge to home or self care 01/30/2025 Documentation [facility] Medicine Surgery [facility] [address] [place] [address] Alisha Velasquze NP from Last 3 Months Immunizations Immunization [...] Every Day Cigarettes 1 49.8 Started: 1975 Passive Smoke Exposure: Current Smokeless Tobacco: Never Tobacco Cessation:Ready to Q uit: Not Asked; Counseling Given: Not Answered Alcohol Use Standard Drinks/Week Comments No 0 (1 standard drink = 0.6 oz pur e alcohol) Comments No Sex and Gender Information Value Date Recorded Sex Assigned at Not on file 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
[2025-02-26 12:17] LABS: Anion Gap 9 mmol/L (4-12); Blood Urea Nitrogen 14 mg/dL (7-17); Calcium 10.0 mg/dL (8.4-10.2); Carbon Dioxide 28 mmol/L (22-30); Chloride 105 mmol/L (98-107); Estimated Glomerular Filt Rate > 60; Glucose 111 mg/dL (65-110); Osmolality Calculated 295 mOsm/kg (285-295); Potassium 5.0 mmol/L (3.4-5.0); Sodium 142 mmol/L (137-145)
== END 2025-02-26 11:07 | disposition home or self-care (01) ==
PROVIDERS: PCP Internal Medicine; Visit Provider Internal Medicine
DX: E86.0 Dehydration (principal); R06.00 Dyspnea, unspecified; R79.1 Abnormal coagulation profile
CPT/HCPCS: 36415; 71275; 80048; Q9967

== ENCOUNTER 2025-03-12 13:51 | Outpatient (CLI) | payer OTHER, SELFPAY ==
[2025-03-12 14:26] LABS: Anion Gap 8 mmol/L (4-12); Blood Urea Nitrogen 10 mg/dL (7-17); Calcium 10.9 mg/dL (8.4-10.2); Carbon Dioxide 28 mmol/L (22-30); Chloride 106 mmol/L (98-107); Estimated Glomerular Filt Rate 34; Glucose 109 mg/dL (65-110); Osmolality Calculated 294 mOsm/kg (285-295); Potassium 4.4 mmol/L (3.4-5.0); Sodium 142 mmol/L (137-145)
--- OUTSIDE RECORDS SUMMARY | 2025-03-12 15:53 | XMS_ITS | Encounter Summary ---
Author Organization [facility] Address [address] [place] [address] Phone Care Team Providers Care Regional Project Manager Name Role Phone Joseluis Rodriguez MD Primary Care Provider [phone] Encounter Details Date Type Department Care Team (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
--- OUTSIDE RECORDS SUMMARY | 2025-03-12 15:53 | XMS_ITS | Encounter Summary ---
Author Organization 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
--- OUTSIDE RECORDS SUMMARY | 2025-03-12 15:53 | XMS_ITS | Clinical Summary ---
Author Organization [facility] Address [address] [place] [address] Care Team Providers Care Department Store General Manager Name Role Phone Joseluis Rodriguez MD Primary Care Provider [phone] Allergies No known active allergies Medications gabapentin [...] 875-125 mg per tablet 01/17/20 24 Active adalimumab-adbm 40 mg/0.4 mL pen injector kit INJECT 40 MG (0.4 ML) UNDER THE SKIN EVERY 14 DAYS 6 kit 02/28/20 25 Active adalimumab (Humira,CF, Pen) 40 mg/0.4 mL pen injector kitIndications:Axial spondyloarthritis Inject 0.4 mL (40 mg total) under the skin every 14 (fourteen) days 6 each 1 09/16/19 25 025 Disconti nued(Dup licate order) Active Problems Problem Noted Date Diagnosed Date Nicotine dependence, cigarettes, uncomplicated 0 01/17/2022 Pulmonary nodules 01/11/2022 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 Stress fracture of left ankle 07/22/2021 Neoplasm related pain 03/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 Left-sided chest wall pain 03/29/2018 Encounters Date Type Department Care Team Description 01/30/2025 10:00 AM CDT Office Visit [facility] Medicine Surgery [address] [place] [address] [address] [place] [address] Bakari Rand MD Pulmonary nodules (Primary Dx) 01/30/2025 9:00 AM CDT - 01/30/2025 11:59 PM CDT Hospital Encounter [facility] [address] [place] [address] Bakari Rand MD Pulmonary nodules Discharge Disposition: Discharge to home or self care 01/30/2025 [facility] [address] [place] [address] [address] [place] [address] Alisha Velasquez MILL WORKER from Last 3 Months Immunizations Immunization Administration [...] on file Legal 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
== END 2025-03-12 13:52 | disposition home or self-care (01) ==
LOC: CHSLAB 13:52
PROVIDERS: PCP Internal Medicine; Visit Provider Internal Medicine
DX: I10 Essential (primary) hypertension (principal)
CPT/HCPCS: 36415; 80048

== ENCOUNTER 2025-03-27 12:02 | Outpatient (CLI) | payer OTHER, SELFPAY ==
--- OUTSIDE RECORDS SUMMARY | 2025-03-27 12:06 | XMS_ITS | Encounter Summary ---
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
--- OUTSIDE RECORDS SUMMARY | 2025-03-27 12:06 | XMS_ITS | Encounter Summary ---
Author Organization [facility] Address [address] [place] [address] Phone Care Team Providers Care Pulpit Operator Name Role Phone Joseluis Rodriguez MD Primary Care Provider [phone] Encounter Details Date Type Department Care Team ([facility] Contact Info) Description 05/23/2023 Orders Only FIGUEROA [...] on file Legal Sex Female 10:29 AM SOCIAL MEDIA INTERN Gender Identity Female 09/01/2019 7:13 PM CDT [...] on filedocumented in this encounter Care Teams Pulpit Operator Relationship Specialty Start Date End Date Joseluis Rodriguez MD [address] [place] [address] PCP - General 08/08/17 documented as of this encounter
--- OUTSIDE RECORDS SUMMARY | 2025-03-27 12:07 | XMS_ITS | Clinical Summary ---
Author Organization [facility] Address [address] [place] [address] Care Team Providers Care Managing Attorney Name Role Phone Joseluis Rodriguez MD Primary [...] 875-125 mg per tablet 01/17/20 24 Active losartan (COZAAR) 100 mg tablet 03/13/20 25 Active Eliquis 5 mg tablet 02/20/20 25 Active indapamide (LOZOL) 1.25 mg tablet 03/02/20 25 Active diclofenac sodium (VOLTAREN) 1 % gel Apply 2 g topically 4 (four) times a day 200 g 3 03/16/20 25 Active adalimumab-adbm 40 mg/0.4 mL pen injector kit 40 mg by abdominal subcutaneous route every 2 (two) weeks 6 kit 71 03/16/20 25 2025 Active adalimumab (Humira,CF, Pen) 40 mg/0.4 mL pen injector kitIndications:Axial spondyloarthritis Inject 0.4 mL (40 mg total) under the skin every 14 (fourteen) days 6 each 1 09/16/19 25 2024 Disconti nued(Dup licate order) adalimumab-adbm 40 mg/0.4 mL pen injector kit INJECT 40 MG (0.4 ML) UNDER THE SKIN EVERY 14 DAYS 6 kit 02/28/20 25 2024 Disconti nued(Reo rder) adalimumab-adbm 40 mg/0.4 mL pen injector kit 40 mg by abdominal subcutaneous route every 2 (two) weeks 6 kit 71 03/16/20 25 2024 Disconti nued(Reo rder) Active Problems Problem Noted Date Diagnosed Date Nicotine dependence, cigarettes, uncomplicated 0 01/17/2022 Pulmonary nodules 01/11/2022 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 Stress fracture of left ankle 07/22/2021 Neoplasm related pain 03/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 Left-sided chest wall pain 03/29/2018 Encounters Date Type Department Care Team Description 03/17/2025 Results Follow-Up [facility] Medicine Rheumatology [address] [place] [address] Duc Werner MD Erythrocyte sedimentation rate, CRP (acute phase), Hepatic function panel 03/16/2025 12:14 PM CDT - 03/16/2025 11:59 PM CDT Hospital Encounter [facility] [address] [place] [address] Psoriatic arthritis (HCC) Discharge Disposition: Discharge to home or self care 03/16/2025 11:15 AM CDT Lab [facility] Medicine Endocrinology Metabolism and Lipid [address] [facility] 5th [place] [address] [place] [address] Psoriatic arthritis (HCC) 03/16/2025 10:00 AM CDT Office Visit [facility] Medicine Rheumatology [address] [facility] 5th [place] [address] [place] [address] Duc Werner MD Axial spondyloarthritis (Primary Dx); Psoriatic arthritis (HCC); Chronic pain of both knees; Lymphocytic colitis 01/30/2025 10:00 AM CDT Office Visit [facility] Medicine Surgery [address] [facility] Floor 5 [place] [address] Bakari Rand MD Pulmonary nodules (Primary Dx) 01/30/2025 9:00 AM CDT - 01/30/2025 11:59 PM CDT Hospital Encounter [facility] [address] [place] [address] Bakari Rand MD Pulmonary nodules Discharge Disposition: Discharge to home or self care 01/30/2025 Documentation [facility] Medicine Surgery [address] 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 Gender Identity Female 09/01/2019 7:13 PM CDT Sexual Orientation Straight 09/01/2019 7: 13 PM CDT Obstetrics History Last Filed Vital Signs Vital Sign Reading Time Taken Comments Blood Pressure 167/85 03/16/2025 10:07 AM CDT Pulse 88 03/16/2025 10:07 AM CDT Temperature 36.7 C (98.1 F) 03/16/2025 10:07 AM CDT Respiratory Rate 20 01/30/2025 9:48 AM CDT Oxygen Saturation 95% 01/30/2025 9:48 AM CDT Inhaled Oxygen Concentration - - Weight 108.9 kg (240 lb) 03/16/2025 10:07 AM CDT Height 162.6 cm (5' 4) 03/16/2025 10:07 AM CDT Body Mass Index 41.2 03/16/2025 10:07 AM CDT Plan of Treatment Health Maintenance [...] Procedure Name Priority Date/Time Associated Diagnosis Comments T-SPOT.TB Routine 03/16/2025 1:08 PM CDT Psoriatic arthritis (HCC) HEPATIC FUNCTION PANEL Routine 03/16/2025 11:18 AM CDT Psoriatic arthritis (HCC) CRP (ACUTE PHASE) Routine 03/16/2025 11: 18 AM CDT Psoriatic arthritis (HCC) ERYTHROCYTE SEDIMENTATION RATE Routine 03/16/2025 11:18 AM CDT Psoriatic arthritis (HCC) CT LUNG CANCER SCREENING Schedule Routine, Read Routine (OP Routine) 01/30/2025 9:19 AM CDT Pulmonary nodules HEPATITIS C ANTIBODY Routine 03/29/2021 10:38 AM CDT SAPHO syndrome (HCC) from Last 3 Months or Most Recently Relevant to Health Maintenance Results * T-SPOT.TB Blood (03/16/2025 1:08 PM CDT) T-SPOT.TB Negative SeeBelow Comment: Normal Value: Negative A negative test result does not exclude the possibility of exposure to or infection with Mycobacterium tuberculosis (M. tuberculosis). Patients with recent exposure to TB infected individuals exhibiting a negative T-SPOT.TB result should be considered for retesting within 6 weeks or if other relevant clinical symptoms indicate. Results from T-SPOT.TB testing must be used in conjunction with each individual's epidemiological history, current medical status, and results of other diagnostic evaluations. The T-SPOT.TB test is qualitative and results are reported as positive, borderline or negative, given that the test controls perform as expected. In line with the Centers for Disease Control and Prevention's 2010 recommendation to report quantitative measurements alongside the qualitative result, the laboratory provides spot counts for informational purposes only. The T-SPOT.TB test should not be interpreted as a quantitative test. T-SPOT.TB Panel A Spot Count 0 [facility] T-SPOT.TB Panel B Spot Count 1 [facility] T-SPOT.TB Negative Control Passed [facility] T-SPOT.TB Positive Control Passed [facility] Comment: Test Performed at: [facility] [address] [place] [phone] KATELYN MONACO,PHD Blood 03/16/2025 1:08 PM CDT 03/16/2025 2:00 PM CDT us Duc Werner MD LAB MICROBIOLOGY - GENERAL ORDER JOVANI Final Result [facility] Department [place] [address] * (ABNORMAL) Erythrocyte sedimentation rate (03/16/2025 11:18 AM CDT) Erythrocyte Sedimentation Rate 45(H) <30 mm/hr [facility] Blood 03/16/2025 11:1 8 AM CDT 03/16/2025 12:41 PM CDT Duc Werner MD LAB BLOOD ORDERABLES Final Resul t Performing Organization Address [facility] Co de Phone Number [facility] * CRP (acute phase) (03/16/2025 11:18 AM CDT) C-Reactive Protein, Acute 4.2 <5.0 mg/L [facility] Blood 03/16/2025 11:1 8 AM CDT 03/16/2025 12:41 PM CDT Duc Werner MD LAB BLOOD ORDERABLES Final Resul t Performing Organization Address [facility] de Phone Number [facility] * Hepatic function panel (03/16/2025 11:18 AM CDT) Direct Bilirubin 0.14 0.00 - 0.20 mg/dL [facility] Comment:Please note new refe rence range for Direct Bilirubin effective 10/23/24 AST (SGOT) 32 11 - 47 IU/L [facility] ALT (SGPT) 38 6 - 53 IU/L [facility] Alk Phos, Total 94 35 - 129 IU/L [facility] Albumin 4.1 3.5 - 5.2 g/dL [facility] Total Protein 7.9 6.1 - 8.4 g/dL [facility] Total Bilirubin 0.34 0.20 - 1.40 mg/dL [facility] Blood 03/16/2025 11:1 8 AM CDT 03/16/2025 12:41 PM CDT Duc Werner MD LAB BLOOD ORDERABLES Final Resul t Performing Organization Address [facility] Co de Phone Number [facility] * CT Lung Cancer Screening (01/30/2025 9:19 [...] CDT) Hep C Ab Nonreactive Nonreactive [facility] Comment:Antibodies to HCV no t detected. Does NOT exclude the possibility of recent exposure to HCV. Blood 03/29/2021 10:3 8 AM CDT 03/29/2021 1:00 PM CDT Richar Marie DO LAB MICROBIOLOGY - GENER AL ORDERABLES Edited Result - Final [facility] Department [place] [address] from Last 3 Months or Most Recently Relevant to Health Maintenance Insurance [employer] MEDICARE [facility] Address: [address] [address] [place] [address] [employer] CIGNA OPEN ACCESS MEDICARE [facility] MEDICARE Care Teams Managing Attorney Relationship Specialty Start Date End Date Joseluis Rodriguez MD [address] [place] [address] PCP - General 08/08/17
[2025-03-27 13:05] LABS: Anion Gap 11 mmol/L (4-12); Blood Urea Nitrogen 8 mg/dL (7-17); Calcium 9.7 mg/dL (8.4-10.2); Carbon Dioxide 26 mmol/L (22-30); Chloride 106 mmol/L (98-107); Estimated Glomerular Filt Rate 53; Glucose 137 mg/dL (65-110); Osmolality Calculated 296 mOsm/kg (285-295); Potassium 4.1 mmol/L (3.4-5.0); Sodium 143 mmol/L (137-145)
== END 2025-03-27 12:03 | disposition home or self-care (01) ==
LOC: CHSLAB 12:05
PROVIDERS: PCP Internal Medicine; Visit Provider Internal Medicine
DX: I10 Essential (primary) hypertension (principal)
CPT/HCPCS: 36415; 80048

== ENCOUNTER 2025-04-27 15:29 | Outpatient (CLI) | payer OTHER, SELFPAY ==
--- OUTSIDE RECORDS SUMMARY | 2025-04-27 15:58 | XMS_ITS | Encounter Summary ---
Author Organization [facility] Address [address] [place] [address] Phone Care Team Providers Care Guitar Repair Technician Name Role Phone Joseluis Rodriguez MD Primary Care Provider [phone] Encounter Details Date Type Department Care Team ([facility] Contact Info) Description 05/23/2023 Orders Only [facility] Scanning, Provider Social History Tobacco Use Types Packs/Day Years Used Date Smoking Tobacco: Every Day Cigarettes 1 49.9 Started: 1975 Smokeless Tobacco: Never Alcohol Use Standard Drinks/Week Comments No 0 (1 standard drink = 0.6 oz pur e alcohol) Comments No Sex and Gender Information Value Date Recorded Sex Assigned at Not on file 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
--- OUTSIDE RECORDS SUMMARY | 2025-04-27 15:58 | XMS_ITS | Clinical Summary ---
Author Organization [facility] Address [address] [place] [address] Care Team Providers Care Artists' Booking Representative Name Role Phone Joseluis Rodriguez MD Primary Care Provider Allergies No known active allergies Medications gabapentin (NEURONTIN) 600 mg tabletIndicatio ns:Neuropathic Pain Take 1 tablet (600 mg total) by mouth 2 (two) times a day. 60 tablet 2 8 Active venlafaxine XR (EFFEXOR-XR) 150 mg 24 hr capsule Take 1 capsule (150 mg total) by mouth daily Active atorvastatin (LIPITOR) 40 mg tablet Take 1 tablet (40 mg total) by mouth daily Active amLODIPine (NORVASC) 10 mg tablet Take 1 tablet (10 mg total) by mouth daily Active PROAIR HFA 90 mcg/actuation inhaler 8 Active chlordiazePOXID E (LIBRIUM) 25 mg capsule 0 8 Active multivitamin tabletIndicatio ns:Vitamin Deficiency Prevention Active baclofen (LIORESAL) 10 mg tablet Take 1 tablet (10 mg total) by mouth 3 (three) times a day. 90 tablet 3 9 Active amitriptyline (ELAVIL) 25 mg tablet TAKE TWO TABLETS BY MOUTH NIGHTLY AT BEDTIME 60 tablet 2 0 Active Trelegy Ellipta 100-62.5-25 mcg inhaler 1 Active fluticasone propionate (FLONASE ALLERGY RELIEF NASL) as needed 0 Active famotidine (PEPCID) 20 mg tablet 0 Active hydrocortisone 1 % creamIndication s:skin rash Apply 1 application topically 2 (two) times a day Use Q-tip to apply to rash on both ears. Avoid putting the Qtip into the ear canal. 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 2nd Floor [address] [place] [address] Duc Werner MD Erythrocyte sedimentation rate, CRP (acute phase), Hepatic function panel 03/16/2025 12:14 PM CDT - 03/16/2025 11:59 PM CDT Hospital Encounter [address] [address] Psoriatic arthritis (HCC) Discharge Disposition: Discharge to home or self care 03/16/2025 11:15 AM CDT Lab [facility] Medicine Endocrinology Metabolism and Lipid [address] [facility] 5th [place] [address] [place] [address] Psoriatic arthritis (HCC) 03/16/2025 10:00 AM CDT Office Visit [facility] Medicine Rheumatology [address] [facility] 5th [place] [address] [place] [address] Duc Werner MD Axial spondyloarthritis (Primary Dx); Psoriatic arthritis (HCC); Chronic pain of both knees; Lymphocytic colitis 01/30/2025 10:00 AM CDT Office Visit [facility] Medicine Surgery [facility] Floor 5 [place] [address] Bakari Rand MD Pulmonary nodules (Primary Dx) 01/30/2025 9:00 AM CDT - 01/30/2025 11:59 PM CDT Hospital Encounter [facility] [address] [place] [address] Bakari Rand MD Pulmonary nodules Discharge Disposition: Discharge to home or self care 01/30/2025 Documentation [facility] Medicine Surgery [facility] Floor 5 [place] [address] Alisha Velasquez, HAT LINING PASTER from Last 3 Months Immunizations Immunization Administration [...] Every Day Cigarettes 1 49.9 Started: 1975 Passive Smoke Exposure: Current Smokeless Tobacco: Never Tobacco Cessation:Ready to Q uit: No; Counseling Given: No Alcohol Use Standard Drinks/Week Comments No 0 (1 standard drink = 0.6 oz pur e alcohol) Comments No Sex and Gender Information Value Date Recorded Sex Assigned at Not on file 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 T-SPOT.TB Panel A Spot Count 0 [facility] T-SPOT.TB Panel B Spot Count 1 [facility] T-SPOT.TB Negative Control Passed [facility] T-SPOT.TB Positive Control Passed [facility] Comment: Test Performed at: [facility] [employer] [place] [address] KATELYN MONACO,PHD Blood 03/16/2025 1:08 PM CDT 03/16/2025 2:00 PM CDT Duc Werner MD LAB MICROBIOLOGY - GENERAL ORDER JOVANI Final Result [facility] Department [place] [address] * (ABNORMAL) Erythrocyte sedimentation rate (03/16/2025 11:18 AM CDT) Erythrocyte Sedimentation Rate 45(H) <30 mm/hr [facility] Blood 03/16/2025 11:1 8 AM CDT 03/16/2025 12:41 PM CDT Duc Werner MD LAB BLOOD ORDERABLES Final Resul t [facility] * CRP (acute phase) (03/16/2025 11:18 AM CDT) C-Reactive Protein, Acute 4.2 <5.0 mg/L [facility] Blood 03/16/2025 11:1 8 AM CDT 03/16/2025 12:41 PM CDT Duc Werner MD LAB BLOOD ORDERABLES Final Resul t Performing Organization Address [facility] Co de Phone Number [facility] * Hepatic [...] ORDERABLES Final Resul t Performing Organization Address City/[facility]/ZIP Co de Phone Number [facility] * CT [...] CDT) Hep C Ab Nonreactive Nonreactive [facility] Comment:Antibodies to HCV no t detected. Does NOT exclude the possibility of recent exposure to HCV. Blood 03/29/2021 10:3 8 AM CDT 03/29/2021 1:00 PM CDT Richar Marie DO LAB MICROBIOLOGY - GENER AL ORDERABLES Edited Result - Final [facility] One [facility] [place] [address] from Last 3 Months or Most Recently Relevant to Health Maintenance Insurance [employer] [address] [facility] OPEN ACCESS MEDICARE [employer] MEDICARE Care Teams Artists' Booking Representative Relationship Specialty Start Date End Date Joseluis Rodriguez MD [address] [place] [address] PCP - General 08/08/17
--- OUTSIDE RECORDS SUMMARY | 2025-04-27 15:58 | XMS_ITS | Encounter Summary ---
Author Organization [facility] Address [address] [place] [address] Phone Care Team Providers Care Frameman Name Role Phone Joseluis Rodriguez MD Primary Care Provider [phone] Encounter Details Date Type Department Care Team ([facility] Contact Info) Description 06/07/2023 Orders Only [...] on file Legal Sex Female 10:[address] ORDER TAKER Gender Identity Female 09/01/2019 7:13 PM CDT [...] on filedocumented in this encounter Care Teams Frameman Relationship Specialty Start Date End Date Joseluis Rodriguez MD [address] [place] [address] PCP - General 08/08/17 documented as of this encounter
--- OUTSIDE RECORDS SUMMARY | 2025-04-27 15:58 | XMS_ITS | Encounter Summary ---
Author Organization [facility] [place] [facility] Address [address] [place] [address] Phone Care Team Providers Care Cold Storage Supervisor Name Role Phone Joseluis Rodriguez MD Primary Care Provider [phone] Encounter Details Date Type Department Care Team (Latest Contact Info) Description 03/17/2025 Results Follow-Up [facility] Medicine Rheumatology [address] [facility] [address] [place] [address] Duc Werner MD [address] [place], [place] [id number] Erythrocyte sedimentation rate, CRP (acute phase), Hepatic function panel Social History Tobacco Use Types Packs/Day Years Used Date Smoking Tobacco: Every Day Cigarettes 1 49.9 Started: 1975 Passive Smoke Exposure: Current Smokeless Tobacco: Never Alcohol Use Standard Drinks/Week Comments No 0 (1 standard drink = 0.6 oz pur e alcohol) Comments No Sex and Gender Information Value Date Recorded Sex Assigned at Not on file 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
[2025-04-27 15:59] LABS: Anion Gap 9 mmol/L (4-12); Blood Urea Nitrogen 8 mg/dL (7-17); Calcium 10.4 mg/dL (8.4-10.2); Carbon Dioxide 28 mmol/L (22-30); Chloride 103 mmol/L (98-107); Estimated Glomerular Filt Rate 49; Glucose 103 mg/dL (65-110); Osmolality Calculated 288 mOsm/kg (285-295); Potassium 4.1 mmol/L (3.4-5.0); Sodium 140 mmol/L (137-145)
== END 2025-04-27 15:30 | disposition home or self-care (01) ==
LOC: CHSLAB 15:31
PROVIDERS: PCP Internal Medicine; Visit Provider Internal Medicine
DX: I10 Essential (primary) hypertension (principal)
CPT/HCPCS: 36415; 80048

== ENCOUNTER 2025-05-12 11:29 | Outpatient (CLI) | payer OTHER, SELFPAY ==
[2025-05-12 12:23] LABS: Anion Gap 11 mmol/L (4-12); Blood Urea Nitrogen 10 mg/dL (7-17); Calcium 10.0 mg/dL (8.4-10.2); Carbon Dioxide 22 mmol/L (22-30); Chloride 107 mmol/L (98-107); Estimated Glomerular Filt Rate 45; Glucose 118 mg/dL (65-110); Osmolality Calculated 290 mOsm/kg (285-295); Potassium 4.0 mmol/L (3.4-5.0); Sodium 140 mmol/L (137-145)
--- OUTSIDE RECORDS SUMMARY | 2025-05-12 13:56 | XMS_ITS | Encounter Summary ---
Author Organization [facility] Address [address] [place] [address] Phone Care Team Providers Care Welding Production Supervisor Name Role Phone Joseluis Rodriguez MD Primary Care Provider [phone] Encounter Details Date Type Department Care Team ([facility] Contact Info) Description 05/23/2023 Orders Only [facility] Scanning, Provider Social History Tobacco Use Types Packs/Day Years Used Date Smoking Tobacco: Every Day Cigarettes 1 50 Started: 1975 Smokeless Tobacco: Never Alcohol Use Standard Drinks/Week Comments No 0 (1 standard drink = 0.6 oz pur e alcohol) Comments No Sex and Gender Information Value Date Recorded Sex Assigned at Not on file 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
--- OUTSIDE RECORDS SUMMARY | 2025-05-12 13:56 | XMS_ITS | Encounter Summary ---
Author Organization 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
--- OUTSIDE RECORDS SUMMARY | 2025-05-12 13:56 | XMS_ITS | Encounter Summary ---
Author Organization [facility] [place] [facility] Address [address] [place] [address] Phone Care Team Providers Care [facility] Psych[facility] Name Role Phone Joseluis Rodriguez MD Primary Care Provider [phone] Encounter Details Date Type Department Care Team (Latest Contact Info) Description 03/17/2025 Results Follow-Up [facility] Medicine Rheumatology [address] [facility] 2nd [address] [place] [address] Duc Werner MD [address] [place], [place] [id number] Erythrocyte sedimentation rate, CRP (acute phase), Hepatic function panel Social History Tobacco Use Types Packs/Day Years Used Date Smoking Tobacco: Every Day Cigarettes 1 50 Started: 1975 Passive Smoke Exposure: Current Smokeless Tobacco: Never Alcohol Use Standard Drinks/Week Comments No 0 (1 standard drink = 0.6 oz pur e alcohol) Comments No Sex and Gender Information Value Date Recorded Sex Assigned at Not on file 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
--- OUTSIDE RECORDS SUMMARY | 2025-05-12 13:57 | XMS_ITS | Clinical Summary ---
Author Organization [facility] Address [address] [place] [address] Care Team Providers Care Assembly Loader Name Role Phone Joseluis Rodriguez MD Primary [...] Department Care Team Description 03/17/2025 Results Follow-Up [facility] Medicine Rheumatology [address] [place] [address] Duc Werner MD Erythrocyte sedimentation rate, CRP (acute phase), Hepatic function panel 03/16/2025 12:14 PM CDT - 03/16/2025 11:59 PM CDT Hospital Encounter [address] [address] Psoriatic arthritis (HCC) Discharge Disposition: Discharge to home or self care 03/16/2025 11:15 AM CDT Lab [facility] Medicine Endocrinology Metabolism and Lipid [address] [place] [address] [place] [address] Psoriatic arthritis (HCC) 03/16/2025 10:00 AM CDT Office Visit [facility] Medicine Rheumatology [address] [place] [phone] Duc Werner MD Axial spondyloarthritis (Primary Dx); Psoriatic arthritis (HCC); Chronic pain of both knees; Lymphocytic colitis from Last 3 Months Immunizations Immunization Administration [...] on file Legal Sex Female 10:29 AM [employer] Gender Identity Female 09/01/2019 7:13 PM CDT [...] 2025 , 01/27/2022, 01/19/2021, Additional history exists Well Visit [...] * T-SPOT.TB Blood (03/16/2025 1:08 PM CDT) [facility] T-SPOT.TB Negative SeeBelow Comment: Normal Value: Negative [...] test. T-SPOT.TB Panel A Spot Count 0 [facility] T-SPOT.TB Panel B Spot Count 1 [facility] T-SPOT.TB Negative Control Passed [facility]-SPOT.TB Positive Control Passed [facility] Comment: Test Performed at: [facility] [employer] [address] [place] [address] KATELYN MONACO,PHD Blood 03/16/2025 1:08 PM CDT 03/16/2025 2:00 PM CDT Duc Werner MD LAB MICROBIOLOGY - GENERAL ORDER JOVANI Final Result Performing Organization Address City/[facility]/ZIP Co de Phone Number [facility] [address] [facility] Department [place] [address] * (ABNORMAL) Erythrocyte sedimentation rate (03/16/2025 11:18 AM CDT) Erythrocyte Sedimentation Rate 45(H) <30 mm/hr [facility] Blood 03/16/2025 11:1 8 AM CDT 03/16/2025 12:41 PM CDT Duc Werner MD LAB BLOOD ORDERABLES Final Resul t Performing Organization Address City/[facility] Co de Phone Number [facility] * CRP (acute phase) (03/16/2025 11:18 AM CDT) C-Reactive Protein, Acute 4.2 <5.0 mg/L [facility] Blood 03/16/2025 11:1 8 AM CDT 03/16/2025 12:41 PM CDT Duc Werner MD LAB BLOOD ORDERABLES Final Resul t Performing Organization Address City/[facility]/ZIP Co de Phone Number [facility] * Hepatic [...] 8 AM CDT 03/16/2025 12:41 PM CDT us Duc Werner MD LAB BLOOD ORDERABLES Final Resul t [facility] * CT [...] it. Electronically signed by: James Celis M.D. us Bakari Rand MD IMG CT PROCEDURES Final R esult * Hepatitis C antibody (03/29/2021 10:38 AM CDT) Hep C Ab Nonreactive Nonreactive [facility] Comment:Antibodies to HCV no t detected. Does NOT exclude the possibility of recent exposure to HCV. Blood 03/29/2021 10:3 8 AM CDT 03/29/2021 1:00 PM CDT Richar Marie DO LAB MICROBIOLOGY - GENER AL ORDERABLES Edited Result - Final [facility] [address] [facility] Department [place] [address] from Last 3 Months or Most Recently Relevant to Health Maintenance Insurance [facility] MEDICARE [employer] [facility] OPEN ACCESS MEDICARE [employer] MED[employer]ARE Care Teams Assembly Loader Relationship Specialty Start Date End Date Joseluis Rodriguez MD [address], [place] [id number] PCP - General 08/08/17
== END 2025-05-12 11:30 | disposition home or self-care (01) ==
PROVIDERS: PCP Internal Medicine; Visit Provider Internal Medicine
DX: I10 Essential (primary) hypertension (principal)
CPT/HCPCS: 36415; 80048